=== PATIENT | male | born 1975 | race Caucasian/White ===

== ENCOUNTER 2018-11-25 14:15 | Inpatient (IN) | payer MEDICAID, OTHER ==
[~2018-11-25] VITALS: Ht 193 cm; Wt 63.0 kg
[2018-11-25] MEDS ORDERED: NAPR220C2 PO (14:50)
[2018-11-25] MEDS ORDERED: SODIUM CHLORIDE FLUSH 10ML SYR IVF ONE (15:00)
[2018-11-25 15:02] LABS: BASOPHILS # (AUTO) 0.03 x10^3/uL (0-0.1); BASOPHILS % (AUTO) 0 % (0-1); EOSINOPHILS # (AUTO) 0.13 x10^3/uL (0-0.4); EOSINOPHILS % (AUTO) 1 % (1-7); LYMPHOCYTES # (AUTO) 1.13 x10^3/uL (1-3.4); LYMPHOCYTES % (AUTO) 9 % (22-44); MD NO; MEAN CORPUSCULAR HEMOGLOBIN 28.7 pg (27.5-34.5); MEAN CORPUSCULAR HGB CONC 33.1 g/dL (33.2-36.2); MEAN CORPUSCULAR VOLUME 86.8 fL (81-97); MONOCYTES # (AUTO) 0.67 x10^3/uL (0.2-0.8); MONOCYTES % (AUTO) 6 % (2-9); NEUTROPHILS # (AUTO) 10.18 x10^3/uL (1.8-6.8); NEUTROPHILS % (AUTO) 84 % (42-75); PLATELET COUNT 146 x10^3/uL (130-400); RED BLOOD COUNT 4.55 x10^6/uL (4.38-5.82); RED CELL DISTRIBUTION WIDTH 15.1 % (9.4-14.8)
[2018-11-25 15:12] LABS: ALANINE AMINOTRANSFERASE 23 U/L (12-78); ALBUMIN 3.7 g/dL (3.4-5.0); ANION GAP 11 mmol/L (5-15); CALCIUM 10.3 mg/dL (8.5-10.1); CHLORIDE 99 mmol/L (98-107); CREATININE 1.24 mg/dL (0.7-1.3)
[2018-11-25 15:14] LABS: ALKALINE PHOSPHATASE 141 U/L (45-117); BILIRUBIN,TOTAL 1.1 mg/dL (0.2-1.0); TOTAL PROTEIN 7.5 g/dL (6.4-8.2)
--- NOTE | 2018-11-25 15:27 | NUR ---
CARE FOR RN BREAK PROVIDED. PT TO MRI VIA [id number]. PT AWARE URINE SPECIMAN NEEDED. URINAL AT BEDSIDE. PTS FATHER AT BEDSIDE.
--- NOTE | 2018-11-25 15:39 | NUR ---
REPORT TO NICHOLE COPE
--- NOTE | 2018-11-25 15:51 | NUR ---
PT REMAINS IN MRI.
[2018-11-25] MEDS ORDERED: GADOBUTROL 10 MMOL/10 ML PFS ONE (16:55)
[2018-11-25] MEDS ORDERED: SODIUM CHLORIDE 0.9% 1,000ML IVBOLUS ONE (18:00)
--- NOTE | 2018-11-25 18:00 | NUR ---
NOTIFIED DR. MG THAT PATIENT IS BACK FROM MRI AND IS TACHYCARDIC AROUND 120 BPM. PATIENT OK TO HAVE ICE CHIPS AT THIS TIME AND 1 L NS BOLUS ORDERED. AWAITING MRI REPORT.
[2018-11-25] MEDS ORDERED: DEXAMETHASONE 4 MG/ML, 1ML ONE (18:51)
[2018-11-25] MEDS ORDERED: DEXAMETHASONE 4 MG/ML, 1ML IVPush ONE (19:00)
[2018-11-25 19:03] LABS: INTERNATIONAL NORMALIZED RATIO 1.17 (0.93-1.1); PROTHROMBIN TIME 12.2 Seconds (9.6-11.5)
[2018-11-25] MEDS ORDERED: FAMOTIDINE 20 MG/2 ML ONE ×2 (19:13→19:14)
--- NOTE | 2018-11-25 19:19 | NUR ---
PT MEDICATED PER NOV. [facility] AT BEDSIDE
[2018-11-25] MEDS ORDERED: LORazepam 2 MG/ML, 1ML IVPush ONE (19:30)
[2018-11-25] MEDS ORDERED: ALUMINUM/MAG/SIMETHICONE 30 ML UDC PO PRN ×2 (19:30)
[2018-11-25] MEDS ORDERED: FAMOTIDINE 20 MG/2 ML IVPush ONE (19:30)
[2018-11-25] MEDS ORDERED: LORazepam 2 MG/ML, 1ML ONE (19:58)
[2018-11-25] MEDS ORDERED: HYDROmorphone 1 MG/ML, 1ML INJ IVPush PRN (21:00)
[2018-11-25] MEDS ORDERED: SODIUM CHLORIDE FLUSH 10ML SYR IVF PRN (21:00)
--- NOTE | 2018-11-25 21:01 | NUR ---
REPORT CALLED TO OR. AWAITING OR TRANSPORT AT THIS TIME .
--- NOTE | 2018-11-25 21:02 | NUR ---
BLOOD BANK CALLED AND STATES NEED TYPE AND SCREEN FOR PLATELETS. TYPE AND SCREEN ORDERED. BB CONFIRMED THEY HAVE RECEIVED THE ORDER AND WILL SEND SOMEONE NOW.
[2018-11-25] MEDS ORDERED: BACITRACIN 50,000 UNIT ONE (21:21)
[2018-11-25] MEDS ORDERED: BUPIVACAINE/PF-EPI 0.5% 1:200K ONE (21:21)
[2018-11-25] MEDS ORDERED: FENTANYL PF 250 MCG/5ML ONE ×2 (21:26→23:22)
[2018-11-25] MEDS ORDERED: MIDAZOLAM 1 MG/ML, 2ML ONE (21:26)
[2018-11-25] MEDS: NS + 20MEQ KCL 1,000 ML IV SCH (21:30)
[2018-11-25] MEDS ORDERED: ONDANSETRON 2MG/ML, 2ML IVPush PRN (21:30)
[2018-11-25] MEDS ORDERED: DIPHENHYDRAMINE 50 MG/ML, 1ML IVPush PRN (21:30)
[2018-11-25] MEDS ORDERED: PHARMACY MAY ADJ FOR RENAL FX MC PRN (21:30)
[2018-11-25] MEDS ORDERED: LABETALOL 5 MG/ML SYRINGE IVPush PRN (21:30)
[2018-11-25] MEDS ORDERED: THROMBIN 20,000 UNIT VIAL TP ONE ×2 (21:42→22:48)
[2018-11-25] MEDS ORDERED: PHENYLEPHRINE 10 MG/ML ONE (21:46)
[2018-11-25] MEDS ORDERED: ROCURONIUM 10MG/ML,5ML ONE (21:46)
[2018-11-25] MEDS ORDERED: ONDANSETRON 2MG/ML, 2ML ONE (21:46)
[2018-11-25] MEDS ORDERED: PROPOFOL 10 MG/ML, 20ML ONE (21:46)
[2018-11-25] MEDS ORDERED: SODIUM CHLORIDE 0.9% 1,000 ML IV SCH (21:50)
[2018-11-25] MEDS ORDERED: FENTANYL PF 100 MCG/2ML IV PRN (22:00)
[2018-11-25] MEDS ORDERED: MEPERIDINE/PF 25MG/0.5ML IVPush PRN (22:00)
[2018-11-25] MEDS ORDERED: ACETAMINOPHEN 325 MG TABLET PO PRN (22:00)
[2018-11-25] MEDS ORDERED: DIAZEPAM 5 MG/ML, 2ML IVPush PRN (22:00)
[2018-11-25] MEDS ORDERED: LORazepam 2 MG/ML, 1ML IVPush PRN (22:00)
[2018-11-25] MEDS ORDERED: OXYcodone 5 MG/5 ML ORAL.SOL UDC PO PRN (22:00)
[2018-11-25] MEDS ORDERED: ONDANSETRON 2MG/ML, 2ML IV PRN (22:00)
[2018-11-25] MEDS ORDERED: ONDANSETRON ODT 8 MG PO PRN (22:00)
[2018-11-25] MEDS ORDERED: DOCUSATE 100 MG CAPSULE PO PRN (22:00)
[2018-11-25] MEDS ORDERED: PROMETHAZINE 25 MG/ML, 1ML IV PRN (22:00)
[2018-11-25] MEDS ORDERED: HYDROmorphone 2 MG/ML, 1ML IVPush PRN (22:00)
[2018-11-25] MEDS ORDERED: BUPIVACAINE/PF-EPI 0.5% 1:200K INFIL ONE (22:10)
[2018-11-25] MEDS ORDERED: BACITRACIN 50,000 UNIT IRRIG ONE (22:10)
[2018-11-26 00:47] LABS: BASOPHILS # (AUTO) 0.01 x10^3/uL (0-0.1); BASOPHILS % (AUTO) 0 % (0-1); EOSINOPHILS # (AUTO) 0.14 x10^3/uL (0-0.4); EOSINOPHILS % (AUTO) 1 % (1-7); LYMPHOCYTES # (AUTO) 0.96 x10^3/uL (1-3.4); LYMPHOCYTES % (AUTO) 8 % (22-44); MD NO; MEAN CORPUSCULAR HEMOGLOBIN 29.2 pg (27.5-34.5); MEAN CORPUSCULAR HGB CONC 33.4 g/dL (33.2-36.2); MEAN CORPUSCULAR VOLUME 87.2 fL (81-97); MEAN PLATELET VOLUME 7.6 fL (7.4-10.4); MONOCYTES # (AUTO) 0.43 x10^3/uL (0.2-0.8); MONOCYTES % (AUTO) 4 % (2-9); NEUTROPHILS # (AUTO) 10.46 x10^3/uL (1.8-6.8); NEUTROPHILS % (AUTO) 87 % (42-75); PLATELET COUNT 147 x10^3/uL (130-400); RED BLOOD COUNT 3.35 x10^6/uL (4.38-5.82); RED CELL DISTRIBUTION WIDTH 14.9 % (9.4-14.8)
[2018-11-26 01:51] VITALS: BP 111/66
[2018-11-26] MEDS: DEXAMETHASONE 4 MG/ML, 1ML IVPush SCH ×4 (03:13→20:20)
[2018-11-26 04:28] LABS: BASOPHILS # (AUTO) 0.02 x10^3/uL (0-0.1); BASOPHILS % (AUTO) 0 % (0-1); EOSINOPHILS % (AUTO) 0 % (1-7); LYMPHOCYTES # (AUTO) 1.27 x10^3/uL (1-3.4); LYMPHOCYTES % (AUTO) 11 % (22-44); MD NO; MEAN CORPUSCULAR HEMOGLOBIN 28.9 pg (27.5-34.5); MEAN CORPUSCULAR HGB CONC 33.1 g/dL (33.2-36.2); MEAN CORPUSCULAR VOLUME 87.3 fL (81-97); MEAN PLATELET VOLUME 7.9 fL (7.4-10.4); MONOCYTES % (AUTO) 5 % (2-9); NEUTROPHILS # (AUTO) 10.08 x10^3/uL (1.8-6.8); NEUTROPHILS % (AUTO) 84 % (42-75); PLATELET COUNT 146 x10^3/uL (130-400); RED BLOOD COUNT 3.12 x10^6/uL (4.38-5.82); RED CELL DISTRIBUTION WIDTH 15.1 % (9.4-14.8)
[2018-11-26 04:38] LABS: ALBUMIN 2.9 g/dL (3.4-5.0); ANION GAP 7 mmol/L (5-15); CALCIUM 8.9 mg/dL (8.5-10.1); CHLORIDE 105 mmol/L (98-107); CREATININE 1.32 mg/dL (0.7-1.3)
[2018-11-26] MEDS: CEFAZOLIN PMX 1GM/50ML 50 ML IVPB SCH ×2 (06:26→13:36)
[2018-11-26] MEDS: NS + 20MEQ KCL 1,000 ML IV SCH (07:30)
[2018-11-26 07:58] VITALS: BP 114/62
[2018-11-26] MEDS: D5%-0.9% NACL 1,000 ML IV SCH ×2 (11:23→20:48)
[2018-11-26] MEDS ORDERED: OMNIPAQUE 350 MG/ML, 100ML BOTTLE ONE (12:28)
[2018-11-26] MEDS: morphine SULFATE 10 MG/ML, 1ML IVPush PRN (12:51)
[2018-11-26 13:47] VITALS: BP 126/67
[2018-11-26] MEDS: HYDROcodone/APAP 5/325 TABLET PO PRN ×2 (18:26→23:12)
[2018-11-26 19:03] VITALS: BP 120/60
[2018-11-26] MEDS: METHOCARBAMOL 750 MG TABLET PO PRN (20:19)
[2018-11-27 01:48] VITALS: BP 102/57
[2018-11-27] MEDS: DEXAMETHASONE 4 MG/ML, 1ML IVPush SCH ×3 (03:16→20:57)
[2018-11-27] MEDS: HYDROcodone/APAP 5/325 TABLET PO PRN ×3 (03:16→11:44)
[2018-11-27] MEDS: D5%-0.9% NACL 1,000 ML IV SCH ×2 (03:47→13:41)
[2018-11-27 04:35] LABS: CULTURE INDICATED? NO; MICROSCOPIC AUTO
[2018-11-27 04:46] LABS: MEAN CORPUSCULAR HEMOGLOBIN 28.4 pg (27.5-34.5); MEAN CORPUSCULAR HGB CONC 32.4 g/dL (33.2-36.2); MEAN CORPUSCULAR VOLUME 87.7 fL (81-97); MEAN PLATELET VOLUME 8.5 fL (7.4-10.4); PLATELET COUNT 139 x10^3/uL (130-400); RED BLOOD COUNT 2.54 x10^6/uL (4.38-5.82); RED CELL DISTRIBUTION WIDTH 15.2 % (9.4-14.8)
[2018-11-27 05:25] LABS: MD YES
[2018-11-27 05:27] LABS: ANISOCYTOSIS 1+; HYPOCHROMIA 1+; LYMPH#(MANUAL) 0.97 x10^3/uL (1-3.4); LYMPHS% (MANUAL) 7 % (22-44); MONOS#(MANUAL) 1.53 x10^3/uL (0.3-2.7); MONOS% (MANUAL) 11 % (2-9); SEGS% (MANUAL) 82 % (42-75)
[2018-11-27 05:28] LABS: <PLATELET ESTIMATE> DECREASED; <PLT MORPHOLOGY> NORMAL PLT MORPH; POLYCHROMASIA 1+
[2018-11-27 07:42] VITALS: BP 110/68
[2018-11-27] MEDS: ALLOPURINOL 300 MG TABLET PO SCH (08:09)
[2018-11-27] MEDS: morphine SULFATE 10 MG/ML, 1ML IVPush PRN (08:30)
[2018-11-27] MEDS ORDERED: GADOBUTROL 7.5 MMOL/7.5 ML PFS ONE (09:00)
[2018-11-27] MEDS ORDERED: ERGOCALCIFEROL 50,000 UNIT CAPSULE PO SCH (10:00)
[2018-11-27 12:49] VITALS: BP 112/61
[2018-11-27] MEDS: METHOCARBAMOL 750 MG TABLET PO PRN (15:42)
[2018-11-27] MEDS: OXYcodone/APAP 5/325MG TABLET PO PRN ×2 (17:00→20:57)
[2018-11-27 18:55] VITALS: BP 119/68
[2018-11-28] MEDS: OXYcodone/APAP 5/325MG TABLET PO PRN ×3 (00:59→21:58)
[2018-11-28 01:00] VITALS: BP 114/63
[2018-11-28 05:20] LABS: MEAN CORPUSCULAR HEMOGLOBIN 28.1 pg (27.5-34.5); MEAN CORPUSCULAR HGB CONC 32.1 g/dL (33.2-36.2); MEAN CORPUSCULAR VOLUME 87.5 fL (81-97); MEAN PLATELET VOLUME 8.6 fL (7.4-10.4); PLATELET COUNT 147 x10^3/uL (130-400); RED BLOOD COUNT 2.52 x10^6/uL (4.38-5.82); RED CELL DISTRIBUTION WIDTH 15.3 % (9.4-14.8)
[2018-11-28 05:26] LABS: ALBUMIN 2.6 g/dL (3.4-5.0); ANION GAP 6 mmol/L (5-15); CALCIUM 8.7 mg/dL (8.5-10.1); CHLORIDE 105 mmol/L (98-107)
[2018-11-28] MEDS ORDERED: METHOCARBAMOL 750 MG TABLET PO SCH (05:30)
[2018-11-28 05:40] LABS: ALANINE AMINOTRANSFERASE 19 U/L (12-78); ALKALINE PHOSPHATASE 115 U/L (45-117); BILIRUBIN,TOTAL 0.6 mg/dL (0.2-1.0); TOTAL PROTEIN 5.5 g/dL (6.4-8.2)
[2018-11-28 05:53] LABS: BASOPHILS # (AUTO) 0.02 x10^3/uL (0-0.1); BASOPHILS % (AUTO) 0 % (0-1); EOSINOPHILS # (AUTO) 0.01 x10^3/uL (0-0.4); EOSINOPHILS % (AUTO) 0 % (1-7); LYMPHOCYTES # (AUTO) 1.38 x10^3/uL (1-3.4); LYMPHOCYTES % (AUTO) 11 % (22-44); MONOCYTES # (AUTO) 1.01 x10^3/uL (0.2-0.8); MONOCYTES % (AUTO) 8 % (2-9); NEUTROPHILS # (AUTO) 10.46 x10^3/uL (1.8-6.8); NEUTROPHILS % (AUTO) 81 % (42-75)
[2018-11-28 05:56] LABS: MD SCAN
[2018-11-28 07:48] VITALS: BP 121/69
[2018-11-28] MEDS: ALLOPURINOL 300 MG TABLET PO SCH (09:04)
[2018-11-28] MEDS: DEXAMETHASONE 4 MG/ML, 1ML IVPush SCH ×3 (09:04→21:00)
[2018-11-28] MEDS: HYDROcodone/APAP 5/325 TABLET PO PRN (09:04)
[2018-11-28 12:34] VITALS: BP 115/65
[2018-11-28 15:14] LABS: MICROSCOPIC INDICATED
[2018-11-28] MEDS ORDERED: BENZOCAINE AEROSOL SPRAY 20%, 60ML TP PRN (15:30)
[2018-11-28] MEDS ORDERED: LIDOCAINE 2% VISCOUS, 100ML MM PRN (15:30)
[2018-11-28] MEDS ORDERED: SODIUM CHLORIDE 0.9% 1,000 ML IV ONE (15:30)
[2018-11-28] MEDS ORDERED: ENOXAPARIN 40 MG/0.4 ML SQ SCH (16:00)
[2018-11-28] MEDS ORDERED: BUPIVACAINE/PF 0.25% ONE (16:22)
[2018-11-28] MEDS ORDERED: NEOMY/POLYMYXIN B GU IRR. 1 ML ONE (16:22)
[2018-11-28] MEDS ORDERED: FENTANYL PF 100 MCG/2ML ONE ×5 (16:27→18:05)
[2018-11-28] MEDS ORDERED: FENTANYL PF 100 MCG/2ML IVPush ONE (16:30)
[2018-11-28] MEDS ORDERED: MIDAZOLAM 1 MG/ML, 2ML ONE (16:38)
[2018-11-28] MEDS ORDERED: ROCURONIUM 10 MG/ML,10ML ONE (16:44)
[2018-11-28] MEDS ORDERED: ONDANSETRON 2MG/ML, 2ML ONE (16:44)
[2018-11-28] MEDS ORDERED: PROPOFOL 50 ML ONE (16:52)
[2018-11-28] MEDS ORDERED: EPHEDRINE 50 MG/ML, 1ML IVPush PRN (17:30)
[2018-11-28] MEDS ORDERED: MIDAZOLAM 1 MG/ML, 2ML IV PRN (17:30)
[2018-11-28] MEDS ORDERED: ONDANSETRON 2MG/ML, 2ML IV PRN (17:30)
[2018-11-28] MEDS ORDERED: PROMETHAZINE 25 MG/ML, 1ML IV PRN (17:30)
[2018-11-28] MEDS ORDERED: PROMETHAZINE 25 MG SUPP PR PRN (17:30)
[2018-11-28] MEDS ORDERED: ONDANSETRON ODT 8 MG PO PRN (17:30)
[2018-11-28] MEDS ORDERED: LABETALOL 5MG/ML, 20ML IV PRN (17:30)
[2018-11-28] MEDS ORDERED: MORPHINE SULFATE 4 MG/ML, 1ML IVPush PRN (17:30)
[2018-11-28] MEDS ORDERED: PROMETHAZINE 12.5 MG SUPP PR PRN (17:30)
[2018-11-28] MEDS ORDERED: DIPHENHYDRAMINE 50 MG/ML, 1ML IVPush PRN (17:30)
[2018-11-28] MEDS ORDERED: OXYcodone 5 MG/5 ML ORAL.SOL UDC PO PRN (17:30)
[2018-11-28] MEDS ORDERED: MEPERIDINE/PF 25MG/0.5ML IVPush PRN (17:30)
[2018-11-28] MEDS ORDERED: EPHEDRINE 50 MG/ML, 1ML IM PRN (17:30)
[2018-11-28] MEDS ORDERED: FENTANYL PF 100 MCG/2ML IV PRN (17:30)
[2018-11-28] MEDS ORDERED: OXYcodone 5 MG/5 ML ORAL.SOL UDC ONE (19:12)
[2018-11-28 20:27] VITALS: BP 113/72
[2018-11-29 01:31] VITALS: BP 113/66
[2018-11-29] MEDS: OXYcodone/APAP 5/325MG TABLET PO PRN ×4 (02:39→22:46)
[2018-11-29 05:30] LABS: MEAN CORPUSCULAR HEMOGLOBIN 28.2 pg (27.5-34.5); MEAN CORPUSCULAR HGB CONC 32.4 g/dL (33.2-36.2); MEAN PLATELET VOLUME 8.3 fL (7.4-10.4); PLATELET COUNT 153 x10^3/uL (130-400); RED BLOOD COUNT 2.41 x10^6/uL (4.38-5.82); RED CELL DISTRIBUTION WIDTH 15.1 % (9.4-14.8)
[2018-11-29 05:37] LABS: RED BLOOD COUNT 2.41 x10^6/uL (4.38-5.82)
[2018-11-29 05:38] LABS: ABSOLUTE RETICS # 0.123 x10^6/uL (0.5-1.5); RETICULOCYTE COUNT % 5.09 % (0.5-1.5)
[2018-11-29 05:40] LABS: ALANINE AMINOTRANSFERASE 16 U/L (12-78); ALBUMIN 2.2 g/dL (3.4-5.0); ANION GAP 7 mmol/L (5-15); CALCIUM 8.3 mg/dL (8.5-10.1); CHLORIDE 104 mmol/L (98-107); CREATININE 0.66 mg/dL (0.7-1.3)
[2018-11-29 05:42] LABS: ALKALINE PHOSPHATASE 112 U/L (45-117); BILIRUBIN,TOTAL 0.6 mg/dL (0.2-1.0); TOTAL PROTEIN 5.2 g/dL (6.4-8.2)
[2018-11-29] MEDS: morphine SULFATE 10 MG/ML, 1ML IVPush PRN ×2 (06:23→13:30)
[2018-11-29 06:46] LABS: BASOPHILS # (AUTO) 0.02 x10^3/uL (0-0.1); BASOPHILS % (AUTO) 0 % (0-1); EOSINOPHILS # (AUTO) 0.01 x10^3/uL (0-0.4); EOSINOPHILS % (AUTO) 0 % (1-7); LYMPHOCYTES # (AUTO) 1.52 x10^3/uL (1-3.4); LYMPHOCYTES % (AUTO) 14 % (22-44); MD SCAN; MONOCYTES # (AUTO) 0.93 x10^3/uL (0.2-0.8); MONOCYTES % (AUTO) 8 % (2-9); NEUTROPHILS # (AUTO) 8.75 x10^3/uL (1.8-6.8); NEUTROPHILS % (AUTO) 78 % (42-75)
[2018-11-29 08:15] VITALS: BP 114/65
[2018-11-29] MEDS: HYDROmorphone 2 MG/ML, 1ML IVPush PRN (08:50)
[2018-11-29] MEDS: DEXAMETHASONE 4 MG/ML, 1ML IVPush SCH ×2 (08:50→20:38)
[2018-11-29] MEDS ORDERED: PROPOFOL 10 MG/ML, 20ML ONE (11:18)
[2018-11-29 13:21] VITALS: BP 113/74
[2018-11-29 13:42] VITALS: BP 108/63
[2018-11-29] MEDS: POLYETHYLENE GLYCOL 17 GM PACKET PO SCH (14:38)
[2018-11-29] MEDS: ALLOPURINOL 300 MG TABLET PO SCH (14:39)
[2018-11-29 16:13] VITALS: BP 120/65
[2018-11-29 19:18] VITALS: BP 115/68
[2018-11-29] MEDS: HEPARIN 5,000 UNITS/ML, 1ML SQ SCH (20:38)
[2018-11-29] MEDS: METHOCARBAMOL 750 MG TABLET PO PRN (21:03)
[2018-11-29] MEDS: TEMAZEPAM 15 MG CAPSULE PO PRN (21:03)
[2018-11-30 00:45] VITALS: BP 118/69
[2018-11-30] MEDS: HYDROcodone/APAP 5/325 TABLET PO PRN (01:58)
[2018-11-30] MEDS: MAGNESIUM HYDROXIDE 8%, 30ML UDC PO PRN (02:20)
[2018-11-30 04:43] LABS: MEAN CORPUSCULAR HEMOGLOBIN 29.2 pg (27.5-34.5); MEAN CORPUSCULAR HGB CONC 33.3 g/dL (33.2-36.2); MEAN CORPUSCULAR VOLUME 87.9 fL (81-97); MEAN PLATELET VOLUME 7.8 fL (7.4-10.4); PLATELET COUNT 166 x10^3/uL (130-400); RED BLOOD COUNT 3.08 x10^6/uL (4.38-5.82); RED CELL DISTRIBUTION WIDTH 15.4 % (9.4-14.8)
[2018-11-30] MEDS: HEPARIN 5,000 UNITS/ML, 1ML SQ SCH ×3 (05:22→20:15)
[2018-11-30] MEDS: METHOCARBAMOL 750 MG TABLET PO PRN (05:22)
[2018-11-30 05:40] LABS: MD YES
[2018-11-30 05:41] LABS: BAND#(MANUAL) 0.86 x10^3/uL; BANDS%(MANUAL) 6 % (0-7); LYMPH#(MANUAL) 1.15 x10^3/uL (1-3.4); LYMPHS% (MANUAL) 8 % (22-44); MONOS#(MANUAL) 1.44 x10^3/uL (0.3-2.7); MONOS% (MANUAL) 10 % (2-9); NRBC % (MANUAL) 3 % (0-1); SEG#(MANUAL) 10.94 x10^3/uL (1.8-6.8); SEGS% (MANUAL) 76 % (42-75)
[2018-11-30 05:42] LABS: ANISOCYTOSIS 1+; HYPOCHROMIA 1+; POLYCHROMASIA 1+
[2018-11-30 05:43] LABS: <PLATELET ESTIMATE> ADEQUATE; <PLT MORPHOLOGY> NORMAL PLT MORPH
[2018-11-30] MEDS: HYDROmorphone 2 MG/ML, 1ML IVPush PRN ×3 (05:51→20:16)
[2018-11-30 07:01] LABS: ALANINE AMINOTRANSFERASE 20 U/L (12-78); ALBUMIN 2.3 g/dL (3.4-5.0); ANION GAP 8 mmol/L (5-15); CALCIUM 8.7 mg/dL (8.5-10.1); CHLORIDE 102 mmol/L (98-107); CREATININE 0.76 mg/dL (0.7-1.3)
[2018-11-30 07:03] LABS: ALKALINE PHOSPHATASE 130 U/L (45-117); BILIRUBIN,TOTAL 0.9 mg/dL (0.2-1.0)
[2018-11-30 08:00] VITALS: BP 124/70
[2018-11-30] MEDS: DEXAMETHASONE 4 MG/ML, 1ML IVPush SCH ×3 (09:00→20:15)
[2018-11-30] MEDS: OXYcodone/APAP 5/325MG TABLET PO PRN ×3 (09:40→19:06)
[2018-11-30] MEDS: ALLOPURINOL 300 MG TABLET PO SCH (09:40)
[2018-11-30] MEDS: POLYETHYLENE GLYCOL 17 GM PACKET PO SCH (09:40)
[2018-11-30 14:00] VITALS: BP 109/67
[2018-11-30 18:37] VITALS: BP 120/71
[2018-12-01 01:32] VITALS: BP 118/74
[2018-12-01] MEDS: HYDROmorphone 2 MG/ML, 1ML IVPush PRN ×6 (01:38→20:47)
[2018-12-01] MEDS: OXYcodone/APAP 5/325MG TABLET PO PRN ×4 (04:34→23:37)
[2018-12-01 04:51] LABS: MEAN CORPUSCULAR HEMOGLOBIN 28.7 pg (27.5-34.5); MEAN CORPUSCULAR HGB CONC 32.6 g/dL (33.2-36.2); MEAN CORPUSCULAR VOLUME 87.8 fL (81-97); MEAN PLATELET VOLUME 7.6 fL (7.4-10.4); PLATELET COUNT 177 x10^3/uL (130-400); RED BLOOD COUNT 3.34 x10^6/uL (4.38-5.82); RED CELL DISTRIBUTION WIDTH 15.6 % (9.4-14.8)
[2018-12-01] MEDS: HEPARIN 5,000 UNITS/ML, 1ML SQ SCH ×3 (05:00→23:37)
[2018-12-01 05:56] LABS: MD YES
[2018-12-01 05:57] LABS: ANISOCYTOSIS 1+; BAND#(MANUAL) 0.38 x10^3/uL; BANDS%(MANUAL) 2 % (0-7); LYMPH#(MANUAL) 2.82 x10^3/uL (1-3.4); LYMPHS% (MANUAL) 15 % (22-44); METAMYELOCYTES# (MANUAL) 0.56 x10^3/uL (0-0); METAMYELOCYTES% (MANUAL) 3 % (0-1); MONOS% (MANUAL) 8 % (2-9); NRBC % (MANUAL) 2 % (0-1); SEG#(MANUAL) 13.54 x10^3/uL (1.8-6.8); SEGS% (MANUAL) 72 % (42-75)
[2018-12-01 05:58] LABS: <PLATELET ESTIMATE> ADEQUATE; <PLT MORPHOLOGY> NORMAL PLT MORPH; HYPOCHROMIA 1+; POLYCHROMASIA 1+
[2018-12-01 06:50] VITALS: BP 105/69
[2018-12-01] MEDS ORDERED: BISACODYL 10 MG SUPP PR PRN (08:30)
[2018-12-01] MEDS: OMEPRAZOLE 20 MG CAPSULE.DR PO SCH (08:44)
[2018-12-01] MEDS: DEXAMETHASONE 4 MG/ML, 1ML IVPush SCH ×2 (08:44→20:47)
[2018-12-01] MEDS: ALLOPURINOL 300 MG TABLET PO SCH (08:44)
[2018-12-01] MEDS: POLYETHYLENE GLYCOL 17 GM PACKET PO SCH (08:44)
[2018-12-01] MEDS ORDERED: DEXAMETHASONE 4 MG/ML, 1ML IVPush SCH (09:00)
[2018-12-01 13:39] VITALS: BP 130/85
[2018-12-01 14:07] LABS: OCCULT BLOOD NEGATIVE (NEGATIVE)
[2018-12-01 19:34] VITALS: BP 118/76
[2018-12-01] MEDS: TEMAZEPAM 15 MG CAPSULE PO PRN (20:47)
[2018-12-02 00:54] VITALS: BP 124/67
[2018-12-02] MEDS: HYDROmorphone 2 MG/ML, 1ML IVPush PRN ×6 (02:17→21:04)
[2018-12-02 05:04] LABS: MEAN CORPUSCULAR HEMOGLOBIN 28.7 pg (27.5-34.5); MEAN CORPUSCULAR HGB CONC 32.4 g/dL (33.2-36.2); MEAN CORPUSCULAR VOLUME 88.4 fL (81-97); MEAN PLATELET VOLUME 8.1 fL (7.4-10.4); PLATELET COUNT 162 x10^3/uL (130-400); RED BLOOD COUNT 3.35 x10^6/uL (4.38-5.82); RED CELL DISTRIBUTION WIDTH 15.5 % (9.4-14.8)
[2018-12-02 05:10] LABS: ALBUMIN 2.6 g/dL (3.4-5.0); ANION GAP 9 mmol/L (5-15); CALCIUM 8.9 mg/dL (8.5-10.1); CHLORIDE 100 mmol/L (98-107)
[2018-12-02 05:27] LABS: ALANINE AMINOTRANSFERASE 19 U/L (12-78); ALKALINE PHOSPHATASE 168 U/L (45-117); BILIRUBIN,TOTAL 1.6 mg/dL (0.2-1.0); CREATININE 0.73 mg/dL (0.7-1.3); TOTAL PROTEIN 6.2 g/dL (6.4-8.2)
[2018-12-02 05:52] LABS: MD YES
[2018-12-02 05:54] LABS: <PLATELET ESTIMATE> ADEQUATE; <PLT MORPHOLOGY> NORMAL PLT MORPH; ANISOCYTOSIS 1+; BAND#(MANUAL) 1.74 x10^3/uL; BANDS%(MANUAL) 8 % (0-7); LYMPHS% (MANUAL) 11 % (22-44); METAMYELOCYTES# (MANUAL) 1.31 x10^3/uL (0-0); METAMYELOCYTES% (MANUAL) 6 % (0-1); MONOS#(MANUAL) 1.09 x10^3/uL (0.3-2.7); MONOS% (MANUAL) 5 % (2-9); MYELOCYTES# (MANUAL) 0.87 x10^3/uL (0-0); MYELOCYTES% (MANUAL) 4 % (0-0); NRBC % (MANUAL) 1 % (0-1); POLYCHROMASIA 1+; SEG#(MANUAL) 14.39 x10^3/uL (1.8-6.8); SEGS% (MANUAL) 66 % (42-75)
[2018-12-02] MEDS: OMEPRAZOLE 20 MG CAPSULE.DR PO SCH (06:10)
[2018-12-02 07:31] VITALS: BP 113/69
[2018-12-02] MEDS: OXYcodone/APAP 5/325MG TABLET PO PRN ×3 (08:48→22:30)
[2018-12-02] MEDS: POLYETHYLENE GLYCOL 17 GM PACKET PO SCH (08:48)
[2018-12-02] MEDS: ALLOPURINOL 300 MG TABLET PO SCH (08:48)
[2018-12-02] MEDS: DEXAMETHASONE 4 MG/ML, 1ML IVPush SCH ×2 (08:49→21:04)
[2018-12-02] MEDS: HEPARIN 5,000 UNITS/ML, 1ML SQ SCH ×2 (08:49→16:53)
[2018-12-02 13:19] VITALS: BP 123/80
[2018-12-02 19:59] VITALS: BP 129/74
[2018-12-03] MEDS: HEPARIN 5,000 UNITS/ML, 1ML SQ SCH ×3 (01:55→15:21)
[2018-12-03 03:08] VITALS: BP 117/67
[2018-12-03] MEDS: HYDROmorphone 2 MG/ML, 1ML IVPush PRN ×5 (03:10→22:27)
[2018-12-03 05:51] LABS: MEAN CORPUSCULAR HEMOGLOBIN 29.4 pg (27.5-34.5); MEAN CORPUSCULAR HGB CONC 33.5 g/dL (33.2-36.2); MEAN CORPUSCULAR VOLUME 87.7 fL (81-97); MEAN PLATELET VOLUME 8.1 fL (7.4-10.4); PLATELET COUNT 159 x10^3/uL (130-400); RED BLOOD COUNT 3.12 x10^6/uL (4.38-5.82); RED CELL DISTRIBUTION WIDTH 15.8 % (9.4-14.8)
[2018-12-03 06:03] LABS: CHLORIDE 100 mmol/L (98-107)
[2018-12-03 06:13] LABS: ALANINE AMINOTRANSFERASE 21 U/L (12-78); ALBUMIN 2.5 g/dL (3.4-5.0); ALKALINE PHOSPHATASE 198 U/L (45-117); ANION GAP 9 mmol/L (5-15); BILIRUBIN,TOTAL 0.8 mg/dL (0.2-1.0); CALCIUM 8.6 mg/dL (8.5-10.1); CREATININE 0.69 mg/dL (0.7-1.3); TOTAL PROTEIN 6.1 g/dL (6.4-8.2)
[2018-12-03 06:25] LABS: MD YES
[2018-12-03 06:29] LABS: ANISOCYTOSIS 1+; BAND#(MANUAL) 1.74 x10^3/uL; BANDS%(MANUAL) 7 % (0-7); LYMPH#(MANUAL) 2.73 x10^3/uL (1-3.4); LYMPHS% (MANUAL) 11 % (22-44); METAMYELOCYTES# (MANUAL) 0.99 x10^3/uL (0-0); METAMYELOCYTES% (MANUAL) 4 % (0-1); MONOS#(MANUAL) 1.49 x10^3/uL (0.3-2.7); MONOS% (MANUAL) 6 % (2-9); MYELOCYTES% (MANUAL) 2 % (0-0); NRBC % (MANUAL) 2 % (0-1); SEG#(MANUAL) 17.36 x10^3/uL (1.8-6.8); SEGS% (MANUAL) 70 % (42-75)
[2018-12-03 06:30] LABS: <PLATELET ESTIMATE> ADEQUATE; POLYCHROMASIA 1+
[2018-12-03 06:31] LABS: <PLT MORPHOLOGY> NORMAL PLT MORPH
[2018-12-03] MEDS: OXYcodone/APAP 5/325MG TABLET PO PRN ×2 (06:33→20:10)
[2018-12-03] MEDS: OMEPRAZOLE 20 MG CAPSULE.DR PO SCH (06:33)
[2018-12-03 06:55] VITALS: BP 122/73
[2018-12-03] MEDS: DEXAMETHASONE 4 MG/ML, 1ML IVPush SCH ×2 (08:25→20:12)
[2018-12-03] MEDS: ALLOPURINOL 300 MG TABLET PO SCH (08:25)
[2018-12-03] MEDS: POLYETHYLENE GLYCOL 17 GM PACKET PO SCH (08:25)
[2018-12-03] MEDS ORDERED: HYDROmorphone 2 MG/ML, 1ML IVPush PRN (10:00)
[2018-12-03 14:37] VITALS: BP 120/71
[2018-12-03 19:48] VITALS: BP 120/76
[2018-12-04] MEDS: HEPARIN 5,000 UNITS/ML, 1ML SQ SCH ×3 (00:46→15:45)
[2018-12-04 01:00] VITALS: BP 113/69
[2018-12-04] MEDS: HYDROmorphone 2 MG/ML, 1ML IVPush PRN ×4 (01:41→11:07)
[2018-12-04 04:57] LABS: ALBUMIN 2.5 g/dL (3.4-5.0); ANION GAP 5 mmol/L (5-15); CALCIUM 8.6 mg/dL (8.5-10.1); CHLORIDE 101 mmol/L (98-107)
[2018-12-04 04:58] LABS: MEAN CORPUSCULAR HEMOGLOBIN 28.7 pg (27.5-34.5); MEAN CORPUSCULAR HGB CONC 32.5 g/dL (33.2-36.2); MEAN CORPUSCULAR VOLUME 88.3 fL (81-97); MEAN PLATELET VOLUME 7.9 fL (7.4-10.4); PLATELET COUNT 146 x10^3/uL (130-400); RED BLOOD COUNT 2.98 x10^6/uL (4.38-5.82); RED CELL DISTRIBUTION WIDTH 15.6 % (9.4-14.8)
[2018-12-04 05:01] LABS: ALANINE AMINOTRANSFERASE 29 U/L (12-78); ALKALINE PHOSPHATASE 193 U/L (45-117); BILIRUBIN,TOTAL 0.7 mg/dL (0.2-1.0); TOTAL PROTEIN 5.8 g/dL (6.4-8.2)
[2018-12-04 05:45] LABS: MD YES
[2018-12-04] MEDS: OMEPRAZOLE 20 MG CAPSULE.DR PO SCH (05:46)
[2018-12-04 05:47] LABS: ANISOCYTOSIS 1+; BANDS%(MANUAL) 8 % (0-7); LYMPH#(MANUAL) 2.75 x10^3/uL (1-3.4); LYMPHS% (MANUAL) 11 % (22-44); METAMYELOCYTES% (MANUAL) 2 % (0-1); MONOS% (MANUAL) 6 % (2-9); MYELOCYTES% (MANUAL) 2 % (0-0); POLYCHROMASIA 1+; SEG#(MANUAL) 17.75 x10^3/uL (1.8-6.8); SEGS% (MANUAL) 71 % (42-75)
[2018-12-04 05:48] LABS: <PLATELET ESTIMATE> ADEQUATE; <PLT MORPHOLOGY> NORMAL PLT MORPH
[2018-12-04 07:20] VITALS: BP 119/67
[2018-12-04] MEDS: OXYcodone/APAP 5/325MG TABLET PO PRN (07:42)
[2018-12-04] MEDS ORDERED: DIAZEPAM 5 MG/ML, 10ML VIAL IV PRN (08:00)
[2018-12-04] MEDS ORDERED: DIAZEPAM 5 MG/ML, 2ML IV PRN ×2 (08:30→15:00)
[2018-12-04] MEDS: POLYETHYLENE GLYCOL 17 GM PACKET PO SCH (08:41)
[2018-12-04] MEDS: ERGOCALCIFEROL 50,000 UNIT CAPSULE PO SCH (08:53)
[2018-12-04] MEDS: DEXAMETHASONE 4 MG/ML, 1ML IVPush SCH ×2 (08:53→21:23)
[2018-12-04] MEDS: ALLOPURINOL 300 MG TABLET PO SCH (08:53)
[2018-12-04 14:00] VITALS: BP 116/73
[2018-12-04] MEDS: DIAZEPAM 5 MG/ML, 2ML IV SCH ×2 (15:34→21:49)
[2018-12-04] MEDS: HYDROmorphone PCA 30 MG/30 ML IV PRN (17:09)
[2018-12-04 19:31] VITALS: BP 117/63
[2018-12-04] MEDS: DOCUSATE 100 MG CAPSULE PO SCH (21:00)
[2018-12-04 22:51] LABS: MICROSCOPIC NOT IND
[2018-12-04 22:53] LABS: CULTURE INDICATED? NO
[2018-12-05] MEDS: HEPARIN 5,000 UNITS/ML, 1ML SQ SCH ×3 (01:33→18:17)
[2018-12-05 02:09] VITALS: BP 119/66
[2018-12-05] MEDS: OMEPRAZOLE 20 MG CAPSULE.DR PO SCH (05:10)
[2018-12-05] MEDS: METHOCARBAMOL 750 MG TABLET PO PRN (05:10)
[2018-12-05 05:33] LABS: MEAN CORPUSCULAR HEMOGLOBIN 29.5 pg (27.5-34.5); MEAN CORPUSCULAR HGB CONC 33.5 g/dL (33.2-36.2); MEAN PLATELET VOLUME 7.8 fL (7.4-10.4); PLATELET COUNT 144 x10^3/uL (130-400); RED CELL DISTRIBUTION WIDTH 15.8 % (9.4-14.8)
[2018-12-05 06:30] LABS: MD YES
[2018-12-05 06:32] LABS: ANISOCYTOSIS 1+; BAND#(MANUAL) 2.09 x10^3/uL; BANDS%(MANUAL) 8 % (0-7); LYMPH#(MANUAL) 3.65 x10^3/uL (1-3.4); LYMPHS% (MANUAL) 14 % (22-44); METAMYELOCYTES# (MANUAL) 1.04 x10^3/uL (0-0); METAMYELOCYTES% (MANUAL) 4 % (0-1); MONOS#(MANUAL) 0.78 x10^3/uL (0.3-2.7); MONOS% (MANUAL) 3 % (2-9); MYELOCYTES# (MANUAL) 0.52 x10^3/uL (0-0); MYELOCYTES% (MANUAL) 2 % (0-0); NRBC % (MANUAL) 2 % (0-1); POLYCHROMASIA 1+; SEG#(MANUAL) 18.01 x10^3/uL (1.8-6.8); SEGS% (MANUAL) 69 % (42-75)
[2018-12-05 06:33] LABS: <PLATELET ESTIMATE> ADEQUATE; <PLT MORPHOLOGY> NORMAL PLT MORPH
[2018-12-05 07:14] VITALS: BP 105/62
[2018-12-05] MEDS ORDERED: SODIUM CHLORIDE 0.9% 1,000 ML IV SCH (07:30)
[2018-12-05 08:52] LABS: ALBUMIN 2.5 g/dL (3.4-5.0); ANION GAP 7 mmol/L (5-15); CALCIUM 8.6 mg/dL (8.5-10.1); CHLORIDE 102 mmol/L (98-107); CREATININE 0.77 mg/dL (0.7-1.3)
[2018-12-05] MEDS: DOCUSATE 100 MG CAPSULE PO SCH ×2 (09:00→21:43)
[2018-12-05] MEDS: POLYETHYLENE GLYCOL 17 GM PACKET PO SCH (09:00)
[2018-12-05] MEDS: ALLOPURINOL 300 MG TABLET PO SCH (09:26)
[2018-12-05] MEDS: DIAZEPAM 5 MG/ML, 2ML IV SCH ×3 (11:24→21:44)
[2018-12-05] MEDS: POTASSIUM CHLORIDE IV SCH ×2 (11:58→21:44)
[2018-12-05] MEDS: SODIUM CHLORIDE 0.9% IV SCH ×4 (11:58→21:44)
[2018-12-05] MEDS: MAGNESIUM SULFATE IV SCH ×2 (11:58→21:44)
[2018-12-05] MEDS ORDERED: LORazepam 2 MG/ML, 1ML IVPush PRN (12:00)
[2018-12-05] MEDS ORDERED: PROCHLORPERAZINE 10MG TABLET PO PRN (12:00)
[2018-12-05] MEDS ORDERED: PROCHLORPERAZINE 5 MG/ML, 2ML IV PRN (12:00)
[2018-12-05] MEDS ORDERED: FOSAPREPITANT 150 MG in SODIUM CHLORIDE 0.9% 145 ML IV ONE (12:00)
[2018-12-05] MEDS: ONDANSETRON 16 MG, DEXAMETHASONE 10 MG in SODIUM CHLORIDE 0.9% 50 ML IVPB SCH (12:31)
[2018-12-05 12:55] VITALS: BP 117/66
[2018-12-05] MEDS: CISPLATIN 39 MG in SODIUM CHLORIDE 0.9% 250 ML IV SCH (14:03)
[2018-12-05] MEDS ORDERED: MESNA IVPB ONE (15:30)
[2018-12-05] MEDS ORDERED: SODIUM CHLORIDE 0.9% IVPB ONE (15:30)
[2018-12-05] MEDS: ETOPOSIDE IV SCH (16:20)
[2018-12-05] MEDS: SODIUM CHLORIDE 0.9% IVPB SCH (18:41)
[2018-12-05] MEDS: MESNA IVPB SCH (18:41)
[2018-12-05] MEDS: IFOSFAMIDE IV SCH (18:54)
[2018-12-05 19:25] VITALS: BP 102/60
[2018-12-06] MEDS: HEPARIN 5,000 UNITS/ML, 1ML SQ SCH ×3 (00:12→17:56)
[2018-12-06 00:37] VITALS: BP 106/64
[2018-12-06 05:21] LABS: MEAN CORPUSCULAR HEMOGLOBIN 29.2 pg (27.5-34.5); MEAN CORPUSCULAR HGB CONC 32.7 g/dL (33.2-36.2); MEAN CORPUSCULAR VOLUME 89.3 fL (81-97); MEAN PLATELET VOLUME 8.2 fL (7.4-10.4); PLATELET COUNT 140 x10^3/uL (130-400)
[2018-12-06 05:32] LABS: CHLORIDE 104 mmol/L (98-107)
[2018-12-06 05:45] LABS: ALANINE AMINOTRANSFERASE 39 U/L (12-78); ALBUMIN 2.4 g/dL (3.4-5.0); ALKALINE PHOSPHATASE 218 U/L (45-117); ANION GAP 9 mmol/L (5-15); BILIRUBIN,TOTAL 0.8 mg/dL (0.2-1.0); CALCIUM 8.2 mg/dL (8.5-10.1); CREATININE 0.71 mg/dL (0.7-1.3); TOTAL PROTEIN 5.6 g/dL (6.4-8.2)
[2018-12-06 06:14] LABS: MD YES
[2018-12-06 06:17] LABS: <PLATELET ESTIMATE> ADEQUATE; <PLT MORPHOLOGY> NORMAL PLT MORPH; ANISOCYTOSIS 1+; BAND#(MANUAL) 1.61 x10^3/uL; BANDS%(MANUAL) 7 % (0-7); LYMPHS% (MANUAL) 10 % (22-44); METAMYELOCYTES# (MANUAL) 0.46 x10^3/uL (0-0); METAMYELOCYTES% (MANUAL) 2 % (0-1); MONOS#(MANUAL) 1.15 x10^3/uL (0.3-2.7); MONOS% (MANUAL) 5 % (2-9); POLYCHROMASIA 1+; SEG#(MANUAL) 17.48 x10^3/uL (1.8-6.8); SEGS% (MANUAL) 76 % (42-75)
[2018-12-06] MEDS: OMEPRAZOLE 20 MG CAPSULE.DR PO SCH (06:17)
[2018-12-06 08:00] VITALS: BP 104/65
[2018-12-06] MEDS: POTASSIUM CHLORIDE IV SCH ×2 (08:51→20:20)
[2018-12-06] MEDS: MAGNESIUM SULFATE IV SCH ×2 (08:51→20:20)
[2018-12-06] MEDS: DIAZEPAM 5 MG/ML, 2ML IV SCH ×3 (08:51→21:00)
[2018-12-06] MEDS: SODIUM CHLORIDE 0.9% IV SCH ×4 (08:51→21:29)
[2018-12-06] MEDS: ALLOPURINOL 300 MG TABLET PO SCH (08:51)
[2018-12-06] MEDS: DOCUSATE 100 MG CAPSULE PO SCH ×2 (08:55→21:29)
[2018-12-06] MEDS: POLYETHYLENE GLYCOL 17 GM PACKET PO SCH (09:00)
[2018-12-06] MEDS: ONDANSETRON 16 MG, DEXAMETHASONE 10 MG in SODIUM CHLORIDE 0.9% 50 ML IVPB SCH (12:36)
[2018-12-06] MEDS: LORazepam 1MG TABLET PO PRN (12:40)
[2018-12-06] MEDS: CISPLATIN 39 MG in SODIUM CHLORIDE 0.9% 250 ML IV SCH (14:27)
[2018-12-06 15:13] LABS: MICROSCOPIC INDICATED
[2018-12-06] MEDS: ETOPOSIDE IV SCH (17:29)
[2018-12-06 17:41] VITALS: BP 112/64
[2018-12-06] MEDS: MESNA IVPB SCH (20:40)
[2018-12-06] MEDS: SODIUM CHLORIDE 0.9% IVPB SCH (20:40)
[2018-12-06] MEDS: IFOSFAMIDE IV SCH (21:29)
[2018-12-06 21:37] VITALS: BP 106/63
[2018-12-07] MEDS: HEPARIN 5,000 UNITS/ML, 1ML SQ SCH ×3 (00:03→16:19)
[2018-12-07 02:58] VITALS: BP 121/63
[2018-12-07] MEDS: POTASSIUM CHLORIDE IV SCH ×2 (05:04→15:32)
[2018-12-07] MEDS: SODIUM CHLORIDE 0.9% IV SCH ×4 (05:04→20:35)
[2018-12-07] MEDS: MAGNESIUM SULFATE IV SCH ×2 (05:04→15:32)
[2018-12-07] MEDS: OMEPRAZOLE 20 MG CAPSULE.DR PO SCH (05:07)
[2018-12-07 05:35] LABS: MEAN CORPUSCULAR HEMOGLOBIN 29.5 pg (27.5-34.5); MEAN CORPUSCULAR HGB CONC 33.3 g/dL (33.2-36.2); MEAN CORPUSCULAR VOLUME 88.6 fL (81-97); MEAN PLATELET VOLUME 7.9 fL (7.4-10.4); PLATELET COUNT 127 x10^3/uL (130-400); RED BLOOD COUNT 2.72 x10^6/uL (4.38-5.82); RED CELL DISTRIBUTION WIDTH 16.4 % (9.4-14.8)
[2018-12-07 05:45] LABS: ALANINE AMINOTRANSFERASE 36 U/L (12-78); ALBUMIN 2.3 g/dL (3.4-5.0); ANION GAP 8 mmol/L (5-15); CALCIUM 8.1 mg/dL (8.5-10.1); CHLORIDE 104 mmol/L (98-107); CREATININE 0.67 mg/dL (0.7-1.3)
[2018-12-07 05:47] LABS: ALKALINE PHOSPHATASE 212 U/L (45-117); BILIRUBIN,TOTAL 0.7 mg/dL (0.2-1.0); TOTAL PROTEIN 5.2 g/dL (6.4-8.2)
[2018-12-07 05:54] LABS: BASOPHILS % (AUTO) 1 % (0-1); EOSINOPHILS # (AUTO) 0.03 x10^3/uL (0-0.4); EOSINOPHILS % (AUTO) 0 % (1-7); LYMPHOCYTES # (AUTO) 2.32 x10^3/uL (1-3.4); LYMPHOCYTES % (AUTO) 14 % (22-44); MD SCAN; MONOCYTES # (AUTO) 0.17 x10^3/uL (0.2-0.8); MONOCYTES % (AUTO) 1 % (2-9); NEUTROPHILS # (AUTO) 13.96 x10^3/uL (1.8-6.8); NEUTROPHILS % (AUTO) 84 % (42-75)
[2018-12-07 07:43] VITALS: BP 100/58
[2018-12-07] MEDS ORDERED: SODIUM CHLORIDE 0.9%, 500ML IVBOLUS ONE (08:30)
[2018-12-07] MEDS: ALLOPURINOL 300 MG TABLET PO SCH (08:37)
[2018-12-07] MEDS: POLYETHYLENE GLYCOL 17 GM PACKET PO SCH (08:37)
[2018-12-07] MEDS: DOCUSATE 100 MG CAPSULE PO SCH ×2 (08:37→21:27)
[2018-12-07] MEDS: DIAZEPAM 5 MG/ML, 2ML IV SCH ×3 (08:57→22:15)
[2018-12-07] MEDS: ONDANSETRON 16 MG, DEXAMETHASONE 10 MG in SODIUM CHLORIDE 0.9% 50 ML IVPB SCH (11:55)
[2018-12-07] MEDS: CISPLATIN 39 MG in SODIUM CHLORIDE 0.9% 250 ML IV SCH (13:16)
[2018-12-07 13:31] VITALS: BP 101/58
[2018-12-07 14:28] LABS: MICROSCOPIC AUTO
[2018-12-07] MEDS: ETOPOSIDE IV SCH (15:40)
[2018-12-07 19:10] VITALS: BP 111/61
[2018-12-07] MEDS: IFOSFAMIDE IV SCH (20:35)
[2018-12-07] MEDS: MESNA IVPB SCH (21:26)
[2018-12-07] MEDS: SODIUM CHLORIDE 0.9% IVPB SCH (21:26)
[2018-12-08] MEDS: HEPARIN 5,000 UNITS/ML, 1ML SQ SCH ×4 (00:45→23:28)
[2018-12-08] MEDS: POTASSIUM CHLORIDE IV SCH ×3 (01:39→23:20)
[2018-12-08] MEDS: SODIUM CHLORIDE 0.9% IV SCH ×5 (01:39→23:20)
[2018-12-08] MEDS: MAGNESIUM SULFATE IV SCH ×3 (01:39→23:20)
[2018-12-08 01:41] VITALS: BP 105/62
[2018-12-08] MEDS: OMEPRAZOLE 20 MG CAPSULE.DR PO SCH (05:20)
[2018-12-08 05:22] LABS: MEAN CORPUSCULAR HEMOGLOBIN 28.8 pg (27.5-34.5); MEAN CORPUSCULAR HGB CONC 32.5 g/dL (33.2-36.2); MEAN CORPUSCULAR VOLUME 88.4 fL (81-97); PLATELET COUNT 134 x10^3/uL (130-400); RED CELL DISTRIBUTION WIDTH 16.4 % (9.4-14.8)
[2018-12-08 05:33] LABS: ALBUMIN 2.2 g/dL (3.4-5.0); ANION GAP 5 mmol/L (5-15); CALCIUM 8.1 mg/dL (8.5-10.1); CHLORIDE 104 mmol/L (98-107)
[2018-12-08 05:38] LABS: ALANINE AMINOTRANSFERASE 34 U/L (12-78); ALKALINE PHOSPHATASE 201 U/L (45-117); CREATININE 0.59 mg/dL (0.7-1.3); TOTAL PROTEIN 5.2 g/dL (6.4-8.2)
[2018-12-08 06:06] LABS: BASOPHILS # (AUTO) 0.04 x10^3/uL (0-0.1); BASOPHILS % (AUTO) 0 % (0-1); EOSINOPHILS # (AUTO) 0.02 x10^3/uL (0-0.4); EOSINOPHILS % (AUTO) 0 % (1-7); LYMPHOCYTES # (AUTO) 1.52 x10^3/uL (1-3.4); LYMPHOCYTES % (AUTO) 11 % (22-44); MD SCAN; MONOCYTES # (AUTO) 0.01 x10^3/uL (0.2-0.8); MONOCYTES % (AUTO) 0 % (2-9); NEUTROPHILS # (AUTO) 12.27 x10^3/uL (1.8-6.8); NEUTROPHILS % (AUTO) 89 % (42-75)
[2018-12-08 07:56] LABS: MICROSCOPIC AUTO
[2018-12-08 08:03] VITALS: BP 101/60
[2018-12-08] MEDS: DIAZEPAM 5 MG/ML, 2ML IV SCH ×2 (09:24→17:24)
[2018-12-08] MEDS: ALLOPURINOL 300 MG TABLET PO SCH (09:24)
[2018-12-08] MEDS: POLYETHYLENE GLYCOL 17 GM PACKET PO SCH (09:24)
[2018-12-08] MEDS: DOCUSATE 100 MG CAPSULE PO SCH ×2 (09:24→21:47)
[2018-12-08] MEDS: ONDANSETRON 16 MG, DEXAMETHASONE 10 MG in SODIUM CHLORIDE 0.9% 50 ML IVPB SCH (11:58)
[2018-12-08] MEDS: CISPLATIN 39 MG in SODIUM CHLORIDE 0.9% 250 ML IV SCH (12:46)
[2018-12-08 14:17] VITALS: BP 99/59
[2018-12-08] MEDS: ETOPOSIDE IV SCH (15:11)
[2018-12-08] MEDS ORDERED: SODIUM CHLORIDE NASAL SPRAY 45ML BOTTLE NAS PRN ×2 (16:00→21:00)
[2018-12-08] MEDS: IFOSFAMIDE IV SCH (20:04)
[2018-12-08 20:15] VITALS: BP 97/58
[2018-12-08] MEDS: MESNA IVPB SCH (21:47)
[2018-12-08] MEDS: SODIUM CHLORIDE 0.9% IVPB SCH (21:47)
[2018-12-09] VITALS (7 sets, daily range): BP systolic 95–134; BP diastolic 56–68
[2018-12-09] MEDS: DIAZEPAM 5 MG/ML, 2ML IV SCH ×4 (02:20→21:00)
[2018-12-09] MEDS: OMEPRAZOLE 20 MG CAPSULE.DR PO SCH (06:00)
[2018-12-09 06:22] LABS: MEAN CORPUSCULAR HEMOGLOBIN 29.8 pg (27.5-34.5); MEAN CORPUSCULAR HGB CONC 34.1 g/dL (33.2-36.2); MEAN CORPUSCULAR VOLUME 87.4 fL (81-97); MEAN PLATELET VOLUME 7.6 fL (7.4-10.4); PLATELET COUNT 124 x10^3/uL (130-400); RED BLOOD COUNT 2.39 x10^6/uL (4.38-5.82); RED CELL DISTRIBUTION WIDTH 15.9 % (9.4-14.8)
[2018-12-09 06:29] LABS: ALBUMIN 2.1 g/dL (3.4-5.0); ANION GAP 6 mmol/L (5-15); CHLORIDE 104 mmol/L (98-107)
[2018-12-09 06:33] LABS: ALANINE AMINOTRANSFERASE 38 U/L (12-78); ALKALINE PHOSPHATASE 201 U/L (45-117); BILIRUBIN,TOTAL 0.7 mg/dL (0.2-1.0); CREATININE 0.63 mg/dL (0.7-1.3); TOTAL PROTEIN 4.9 g/dL (6.4-8.2)
[2018-12-09 06:44] LABS: MD YES
[2018-12-09 06:48] LABS: LYMPH#(MANUAL) 1.08 x10^3/uL (1-3.4); LYMPHS% (MANUAL) 11 % (22-44); MONOS% (MANUAL) 1 % (2-9); SEG#(MANUAL) 8.62 x10^3/uL (1.8-6.8); SEGS% (MANUAL) 88 % (42-75)
[2018-12-09 06:50] LABS: ANISOCYTOSIS 1+
[2018-12-09 06:51] LABS: <PLATELET ESTIMATE> ADEQUATE; <PLT MORPHOLOGY> NORMAL PLT MORPH
[2018-12-09 07:37] LABS: MICROSCOPIC AUTO
[2018-12-09] MEDS: POTASSIUM CHLORIDE IV SCH ×2 (08:54→17:57)
[2018-12-09] MEDS: MAGNESIUM SULFATE IV SCH ×2 (08:54→17:57)
[2018-12-09] MEDS: SODIUM CHLORIDE 0.9% IV SCH ×4 (08:54→19:42)
[2018-12-09] MEDS: POLYETHYLENE GLYCOL 17 GM PACKET PO SCH (09:00)
[2018-12-09] MEDS: DOCUSATE 100 MG CAPSULE PO SCH ×2 (09:00→20:19)
[2018-12-09] MEDS: ALLOPURINOL 300 MG TABLET PO SCH (09:40)
[2018-12-09] MEDS: HEPARIN 5,000 UNITS/ML, 1ML SQ SCH (09:42)
[2018-12-09] MEDS: ONDANSETRON 16 MG, DEXAMETHASONE 10 MG in SODIUM CHLORIDE 0.9% 50 ML IVPB SCH (11:59)
[2018-12-09] MEDS: CISPLATIN 39 MG in SODIUM CHLORIDE 0.9% 250 ML IV SCH (12:50)
[2018-12-09] MEDS: ETOPOSIDE IV SCH (15:26)
[2018-12-09 15:36] LABS: MICROSCOPIC INDICATED
[2018-12-09] MEDS: IFOSFAMIDE IV SCH (19:42)
[2018-12-09] MEDS: SODIUM CHLORIDE 0.9% IVPB SCH (20:02)
[2018-12-09] MEDS: MESNA IVPB SCH (20:02)
[2018-12-09] MEDS: HYDROmorphone PCA 30 MG/30 ML IV PRN (20:20)
[2018-12-10 01:01] VITALS: BP 99/61
[2018-12-10] MEDS: SODIUM CHLORIDE 0.9% IV SCH ×2 (05:26→15:05)
[2018-12-10] MEDS: MAGNESIUM SULFATE IV SCH ×2 (05:26→15:05)
[2018-12-10] MEDS: POTASSIUM CHLORIDE IV SCH ×2 (05:26→15:05)
[2018-12-10 06:21] LABS: MEAN CORPUSCULAR HEMOGLOBIN 30.1 pg (27.5-34.5); MEAN CORPUSCULAR HGB CONC 33.8 g/dL (33.2-36.2); MEAN CORPUSCULAR VOLUME 89.1 fL (81-97); MEAN PLATELET VOLUME 7.1 fL (7.4-10.4); PLATELET COUNT 100 x10^3/uL (130-400); RED BLOOD COUNT 2.58 x10^6/uL (4.38-5.82); RED CELL DISTRIBUTION WIDTH 16.4 % (9.4-14.8)
[2018-12-10 06:28] LABS: ALANINE AMINOTRANSFERASE 48 U/L (12-78); ALBUMIN 2.1 g/dL (3.4-5.0); ANION GAP 9 mmol/L (5-15); CALCIUM 7.8 mg/dL (8.5-10.1); CHLORIDE 105 mmol/L (98-107); CREATININE 0.64 mg/dL (0.7-1.3)
[2018-12-10 06:30] LABS: ALKALINE PHOSPHATASE 195 U/L (45-117); BILIRUBIN,TOTAL 1.2 mg/dL (0.2-1.0); TOTAL PROTEIN 4.9 g/dL (6.4-8.2)
[2018-12-10] MEDS: OMEPRAZOLE 20 MG CAPSULE.DR PO SCH (06:32)
[2018-12-10 06:43] LABS: BASOPHILS # (AUTO) 0.17 x10^3/uL (0-0.1); BASOPHILS % (AUTO) 2 % (0-1); EOSINOPHILS # (AUTO) 0.05 x10^3/uL (0-0.4); EOSINOPHILS % (AUTO) 1 % (1-7); LYMPHOCYTES # (AUTO) 0.62 x10^3/uL (1-3.4); LYMPHOCYTES % (AUTO) 8 % (22-44); MD SCAN; MONOCYTES # (AUTO) 0.04 x10^3/uL (0.2-0.8); MONOCYTES % (AUTO) 1 % (2-9); NEUTROPHILS # (AUTO) 6.81 x10^3/uL (1.8-6.8); NEUTROPHILS % (AUTO) 89 % (42-75)
[2018-12-10 07:35] VITALS: BP_SYST 100; BP_SYST 115; BP_DIAS 61; BP_DIAS 65
[2018-12-10] MEDS: ALLOPURINOL 300 MG TABLET PO SCH (08:42)
[2018-12-10] MEDS: DOCUSATE 100 MG CAPSULE PO SCH ×2 (08:42→21:26)
[2018-12-10] MEDS: POLYETHYLENE GLYCOL 17 GM PACKET PO SCH (08:42)
[2018-12-10] MEDS: DIAZEPAM 5 MG/ML, 2ML IV SCH (09:00)
[2018-12-10] MEDS: ONDANSETRON 2MG/ML, 2ML IVPush PRN (12:12)
[2018-12-10] MEDS ORDERED: HEPARIN 5,000 UNITS/ML, 1ML SQ SCH (13:30)
[2018-12-10 14:00] VITALS: BP 94/58
[2018-12-10] MEDS: TAMSULOSIN 0.4 MG CAP.ER.24H PO SCH (15:05)
[2018-12-10] MEDS ORDERED: HEPARIN 5,000 UNITS/ML, 1ML IV ONE (17:00)
[2018-12-10 18:00] LABS: MEAN CORPUSCULAR HEMOGLOBIN 28.6 pg (27.5-34.5); MEAN CORPUSCULAR HGB CONC 32.5 g/dL (33.2-36.2); MEAN CORPUSCULAR VOLUME 88.2 fL (81-97); MEAN PLATELET VOLUME 7.1 fL (7.4-10.4); PLATELET COUNT 97 x10^3/uL (130-400); RED BLOOD COUNT 2.67 x10^6/uL (4.38-5.82)
[2018-12-10 18:15] LABS: BASOPHILS # (AUTO) 0.01 x10^3/uL (0-0.1); BASOPHILS % (AUTO) 0 % (0-1); EOSINOPHILS # (AUTO) 0.03 x10^3/uL (0-0.4); EOSINOPHILS % (AUTO) 1 % (1-7); LYMPHOCYTES # (AUTO) 0.71 x10^3/uL (1-3.4); LYMPHOCYTES % (AUTO) 12 % (22-44); MD SCAN; MONOCYTES % (AUTO) 0 % (2-9); NEUTROPHILS # (AUTO) 5.08 x10^3/uL (1.8-6.8); NEUTROPHILS % (AUTO) 87 % (42-75)
[2018-12-10] MEDS: HEPARIN 25,000 UNITS/500ML PMX 500 ML IV PRN (18:43)
[2018-12-10] MEDS: DIAZEPAM 2 MG TABLET PO PRN (19:43)
[2018-12-10 20:46] VITALS: BP 95/62
[2018-12-11] MEDS: HEPARIN 5,000 UNITS/ML, 1ML IV PRN ×4 (01:42→21:26)
[2018-12-11] MEDS: SODIUM CHLORIDE 0.9% IV SCH ×2 (01:57→11:53)
[2018-12-11] MEDS: POTASSIUM CHLORIDE IV SCH ×2 (01:57→11:53)
[2018-12-11] MEDS: MAGNESIUM SULFATE IV SCH ×2 (01:57→11:53)
[2018-12-11 05:07] VITALS: BP 86/49
[2018-12-11] MEDS: OMEPRAZOLE 20 MG CAPSULE.DR PO SCH (05:10)
[2018-12-11 05:19] VITALS: BP 98/62
[2018-12-11 07:50] VITALS: BP 98/60
[2018-12-11 08:17] LABS: ALANINE AMINOTRANSFERASE 57 U/L (12-78); CHLORIDE 104 mmol/L (98-107); CREATININE 0.63 mg/dL (0.7-1.3)
[2018-12-11 08:21] LABS: ALKALINE PHOSPHATASE 204 U/L (45-117); CALCIUM 7.4 mg/dL (8.5-10.1)
[2018-12-11 08:22] LABS: ANION GAP 5 mmol/L (5-15)
[2018-12-11] MEDS: ERGOCALCIFEROL 50,000 UNIT CAPSULE PO SCH (08:24)
[2018-12-11] MEDS: ALLOPURINOL 300 MG TABLET PO SCH (08:24)
[2018-12-11] MEDS: TAMSULOSIN 0.4 MG CAP.ER.24H PO SCH (08:24)
[2018-12-11] MEDS: POLYETHYLENE GLYCOL 17 GM PACKET PO SCH (08:24)
[2018-12-11] MEDS: DOCUSATE 100 MG CAPSULE PO SCH ×2 (08:26→20:34)
[2018-12-11 08:35] LABS: MEAN CORPUSCULAR HEMOGLOBIN 30.3 pg (27.5-34.5); MEAN CORPUSCULAR HGB CONC 34.3 g/dL (33.2-36.2); MEAN CORPUSCULAR VOLUME 88.4 fL (81-97); MEAN PLATELET VOLUME 7.2 fL (7.4-10.4); PLATELET COUNT 81 x10^3/uL (130-400); RED BLOOD COUNT 2.51 x10^6/uL (4.38-5.82); RED CELL DISTRIBUTION WIDTH 15.9 % (9.4-14.8)
[2018-12-11 08:36] LABS: HEMOGRAM NOTE RECHECKED
[2018-12-11 08:37] LABS: BASOPHILS # (AUTO) 0.02 x10^3/uL (0-0.1); BASOPHILS % (AUTO) 1 % (0-1); EOSINOPHILS # (AUTO) 0.03 x10^3/uL (0-0.4); EOSINOPHILS % (AUTO) 1 % (1-7); LYMPHOCYTES # (AUTO) 0.72 x10^3/uL (1-3.4); LYMPHOCYTES % (AUTO) 16 % (22-44); MD SCAN; MONOCYTES % (AUTO) 0 % (2-9); NEUTROPHILS # (AUTO) 3.59 x10^3/uL (1.8-6.8); NEUTROPHILS % (AUTO) 82 % (42-75)
[2018-12-11 08:57] LABS: PROTHROMBIN TIME 10.5 Seconds (9.6-11.5)
[2018-12-11] MEDS: TBO-FILGRASTIM 300 MCG/0.5 ML SQ SCH (09:28)
[2018-12-11] MEDS: ONDANSETRON 2MG/ML, 2ML IVPush PRN ×2 (09:28→16:50)
[2018-12-11] MEDS: DIAZEPAM 2 MG TABLET PO PRN (09:58)
[2018-12-11 13:58] VITALS: BP 105/62
[2018-12-11] MEDS: HEPARIN 25,000 UNITS/500ML PMX 500 ML IV PRN (14:58)
[2018-12-11] MEDS ORDERED: WARFARIN HIGH DOSE PROTOCOL XX SCH (19:04)
[2018-12-11] MEDS ORDERED: WARFARIN 10 MG TABLET PO-COUM ONE (19:30)
[2018-12-11 21:04] VITALS: BP 98/58
[2018-12-11] MEDS: LORazepam 1MG TABLET PO PRN (21:10)
[2018-12-12 03:17] VITALS: BP 96/58
[2018-12-12 03:40] LABS: MEAN CORPUSCULAR HEMOGLOBIN 29.6 pg (27.5-34.5); MEAN CORPUSCULAR HGB CONC 33.5 g/dL (33.2-36.2); MEAN CORPUSCULAR VOLUME 88.4 fL (81-97); PLATELET COUNT 72 x10^3/uL (130-400); RED BLOOD COUNT 2.47 x10^6/uL (4.38-5.82); RED CELL DISTRIBUTION WIDTH 15.2 % (9.4-14.8)
[2018-12-12 03:44] LABS: INTERNATIONAL NORMALIZED RATIO 0.98 (0.93-1.1); PROTHROMBIN TIME 10.3 Seconds (9.6-11.5)
[2018-12-12 03:55] LABS: BASOPHILS # (AUTO) 0.01 x10^3/uL (0-0.1); BASOPHILS % (AUTO) 0 % (0-1); EOSINOPHILS # (AUTO) 0.02 x10^3/uL (0-0.4); EOSINOPHILS % (AUTO) 1 % (1-7); LYMPHOCYTES # (AUTO) 0.62 x10^3/uL (1-3.4); LYMPHOCYTES % (AUTO) 14 % (22-44); MD SCAN; MONOCYTES % (AUTO) 0 % (2-9); NEUTROPHILS # (AUTO) 3.84 x10^3/uL (1.8-6.8); NEUTROPHILS % (AUTO) 85 % (42-75)
[2018-12-12] MEDS: HEPARIN 5,000 UNITS/ML, 1ML IV PRN ×2 (04:03→18:06)
[2018-12-12] MEDS: OMEPRAZOLE 20 MG CAPSULE.DR PO SCH (05:58)
[2018-12-12] MEDS: ONDANSETRON 2MG/ML, 2ML IVPush PRN ×2 (05:58→12:00)
[2018-12-12 07:46] VITALS: BP 100/62
[2018-12-12] MEDS: TAMSULOSIN 0.4 MG CAP.ER.24H PO SCH (08:40)
[2018-12-12] MEDS: DOCUSATE 100 MG CAPSULE PO SCH ×2 (08:40→19:27)
[2018-12-12] MEDS: POLYETHYLENE GLYCOL 17 GM PACKET PO SCH (08:40)
[2018-12-12] MEDS: TBO-FILGRASTIM 300 MCG/0.5 ML SQ SCH (08:41)
[2018-12-12] MEDS: ALLOPURINOL 300 MG TABLET PO SCH (08:41)
[2018-12-12] MEDS: HEPARIN 25,000 UNITS/500ML PMX 500 ML IV PRN (08:43)
[2018-12-12 10:05] LABS: ANION GAP 4 mmol/L (5-15); CALCIUM 7.7 mg/dL (8.5-10.1); CHLORIDE 104 mmol/L (98-107); CREATININE 0.64 mg/dL (0.7-1.3)
[2018-12-12 10:12] LABS: MEAN CORPUSCULAR HEMOGLOBIN 29.3 pg (27.5-34.5); MEAN CORPUSCULAR HGB CONC 33.4 g/dL (33.2-36.2); MEAN CORPUSCULAR VOLUME 87.8 fL (81-97); MEAN PLATELET VOLUME 7.1 fL (7.4-10.4); PLATELET COUNT 67 x10^3/uL (130-400); RED BLOOD COUNT 2.52 x10^6/uL (4.38-5.82)
[2018-12-12 10:21] LABS: BASOPHILS # (AUTO) 0.01 x10^3/uL (0-0.1); BASOPHILS % (AUTO) 0 % (0-1); EOSINOPHILS # (AUTO) 0.02 x10^3/uL (0-0.4); EOSINOPHILS % (AUTO) 1 % (1-7); LYMPHOCYTES % (AUTO) 18 % (22-44); MD SCAN; MONOCYTES % (AUTO) 0 % (2-9); NEUTROPHILS # (AUTO) 2.61 x10^3/uL (1.8-6.8); NEUTROPHILS % (AUTO) 81 % (42-75)
[2018-12-12 13:00] VITALS: BP 89/56
[2018-12-12 13:20] VITALS: BP 127/63
[2018-12-12 13:34] VITALS: BP 98/21
[2018-12-12 19:18] VITALS: BP 105/62
[2018-12-12] MEDS: LORazepam 1MG TABLET PO PRN (21:16)
[2018-12-13] VITALS (8 sets, daily range): BP systolic 96–110; BP diastolic 56–68
[2018-12-13] MEDS: HEPARIN 25,000 UNITS/500ML PMX 500 ML IV PRN ×3 (00:27→23:44)
[2018-12-13] MEDS: HEPARIN 5,000 UNITS/ML, 1ML IV PRN ×2 (01:40→12:54)
[2018-12-13] MEDS: ONDANSETRON 2MG/ML, 2ML IVPush PRN (05:35)
[2018-12-13] MEDS: OMEPRAZOLE 20 MG CAPSULE.DR PO SCH (05:35)
[2018-12-13 06:32] LABS: MEAN CORPUSCULAR HEMOGLOBIN 28.9 pg (27.5-34.5); MEAN CORPUSCULAR VOLUME 87.8 fL (81-97); MEAN PLATELET VOLUME 6.9 fL (7.4-10.4); RED BLOOD COUNT 2.25 x10^6/uL (4.38-5.82); RED CELL DISTRIBUTION WIDTH 16.1 % (9.4-14.8)
[2018-12-13 06:36] LABS: PLATELET COUNT 48 x10^3/uL (130-400)
[2018-12-13 06:57] LABS: MD YES
[2018-12-13 06:59] LABS: ALANINE AMINOTRANSFERASE 51 U/L (12-78); ALBUMIN 2.1 g/dL (3.4-5.0); ANION GAP 7 mmol/L (5-15); CALCIUM 7.7 mg/dL (8.5-10.1); CHLORIDE 105 mmol/L (98-107); CREATININE 0.65 mg/dL (0.7-1.3)
[2018-12-13 07:01] LABS: ALKALINE PHOSPHATASE 217 U/L (45-117); BILIRUBIN,TOTAL 1.1 mg/dL (0.2-1.0); TOTAL PROTEIN 4.9 g/dL (6.4-8.2)
[2018-12-13 07:05] LABS: EOS#(MANUAL) 0.01 x10^3/uL (0.0-0.4); EOS% (MANUAL) 1 % (1-7); LYMPH#(MANUAL) 0.45 x10^3/uL (1-3.4); LYMPHS% (MANUAL) 50 % (22-44); SEG#(MANUAL) 0.44 x10^3/uL (1.8-6.8); SEGS% (MANUAL) 49 % (42-75)
[2018-12-13 07:06] LABS: ANISOCYTOSIS 1+
[2018-12-13 07:07] LABS: <PLATELET ESTIMATE> DECREASED; <PLT MORPHOLOGY> NORMAL PLT MORPH
[2018-12-13] MEDS: TAMSULOSIN 0.4 MG CAP.ER.24H PO SCH (08:36)
[2018-12-13] MEDS: ALLOPURINOL 300 MG TABLET PO SCH (08:36)
[2018-12-13] MEDS: DOCUSATE 100 MG CAPSULE PO SCH ×2 (08:36→20:37)
[2018-12-13] MEDS: POLYETHYLENE GLYCOL 17 GM PACKET PO SCH (08:36)
[2018-12-13] MEDS: TBO-FILGRASTIM 300 MCG/0.5 ML SQ SCH (09:11)
[2018-12-13] MEDS: LORazepam 1MG TABLET PO PRN (23:39)
[2018-12-14] VITALS (7 sets, daily range): BP systolic 101–111; BP diastolic 58–68
[2018-12-14] MEDS: HEPARIN 5,000 UNITS/ML, 1ML IV PRN (00:34)
[2018-12-14 04:45] LABS: MEAN CORPUSCULAR HEMOGLOBIN 30.1 pg (27.5-34.5); MEAN CORPUSCULAR HGB CONC 34.9 g/dL (33.2-36.2); MEAN CORPUSCULAR VOLUME 86.3 fL (81-97); RED BLOOD COUNT 2.39 x10^6/uL (4.38-5.82); RED CELL DISTRIBUTION WIDTH 15.8 % (9.4-14.8)
[2018-12-14 04:54] LABS: ANION GAP 7 mmol/L (5-15); CALCIUM 7.7 mg/dL (8.5-10.1); CHLORIDE 103 mmol/L (98-107)
[2018-12-14 04:57] LABS: ALANINE AMINOTRANSFERASE 43 U/L (12-78); ALKALINE PHOSPHATASE 251 U/L (45-117); BILIRUBIN,TOTAL 1.9 mg/dL (0.2-1.0); CREATININE 0.64 mg/dL (0.7-1.3); TOTAL PROTEIN 5.1 g/dL (6.4-8.2)
[2018-12-14 05:45] LABS: MEAN PLATELET VOLUME 6.8 fL (7.4-10.4)
[2018-12-14 05:47] LABS: PLATELET COUNT 37 x10^3/uL (130-400)
[2018-12-14 05:50] LABS: MD YES
[2018-12-14] MEDS: ONDANSETRON 2MG/ML, 2ML IVPush PRN (05:54)
[2018-12-14] MEDS: OMEPRAZOLE 20 MG CAPSULE.DR PO SCH (05:55)
[2018-12-14 05:58] LABS: ANISOCYTOSIS 1+; EOS#(MANUAL) 0.01 x10^3/uL (0.0-0.4); EOS% (MANUAL) 1 % (1-7); LYMPH#(MANUAL) 0.42 x10^3/uL (1-3.4); LYMPHS% (MANUAL) 83 % (22-44); SEG#(MANUAL) 0.08 x10^3/uL (1.8-6.8); SEGS% (MANUAL) 16 % (42-75)
[2018-12-14 05:59] LABS: <PLATELET ESTIMATE> DECREASED; <PLT MORPHOLOGY> NORMAL PLT MORPH
[2018-12-14] MEDS: POLYETHYLENE GLYCOL 17 GM PACKET PO SCH (09:00)
[2018-12-14] MEDS: DOCUSATE 100 MG CAPSULE PO SCH ×2 (09:00→21:00)
[2018-12-14] MEDS: TAMSULOSIN 0.4 MG CAP.ER.24H PO SCH (09:20)
[2018-12-14] MEDS: ALLOPURINOL 300 MG TABLET PO SCH (09:20)
[2018-12-14] MEDS: TBO-FILGRASTIM 300 MCG/0.5 ML SQ SCH (09:21)
[2018-12-14] MEDS: HYDROmorphone PCA 30 MG/30 ML IV PRN ×2 (10:23→13:50)
[2018-12-14] MEDS: HEPARIN 25,000 UNITS/500ML PMX 500 ML IV PRN (10:26)
[2018-12-14 12:59] LABS: MICROSCOPIC INDICATED
[2018-12-14 13:13] LABS: CULTURE INDICATED? YES
[2018-12-14 19:11] LABS: MD YES; MEAN CORPUSCULAR HEMOGLOBIN 29.7 pg (27.5-34.5); MEAN CORPUSCULAR HGB CONC 34.7 g/dL (33.2-36.2); MEAN CORPUSCULAR VOLUME 85.7 fL (81-97); MEAN PLATELET VOLUME 7.4 fL (7.4-10.4); RED BLOOD COUNT 2.09 x10^6/uL (4.38-5.82); RED CELL DISTRIBUTION WIDTH 15.6 % (9.4-14.8)
[2018-12-14 19:12] LABS: PLATELET COUNT 22 x10^3/uL (130-400)
[2018-12-14] MEDS ORDERED: HEPARIN 25,000 UNITS/500ML PMX 500 ML IV SCH (19:30)
[2018-12-14] MEDS ORDERED: ACETAMINOPHEN 325 MG TABLET PO ONE (19:30)
[2018-12-14 20:30] LABS: BANDS%(MANUAL) 1 % (0-7); EOS#(MANUAL) 0.01 x10^3/uL (0.0-0.4); EOS% (MANUAL) 2 % (1-7); LYMPH#(MANUAL) 0.36 x10^3/uL (1-3.4); LYMPHS% (MANUAL) 89 % (22-44); MONOS#(MANUAL) 0.01 x10^3/uL (0.3-2.7); MONOS% (MANUAL) 2 % (2-9); SEG#(MANUAL) 0.02 x10^3/uL (1.8-6.8); SEGS% (MANUAL) 6 % (42-75)
[2018-12-14 20:31] LABS: <PLATELET ESTIMATE> DECREASED; <PLT MORPHOLOGY> NORMAL PLT MORPH; ANISOCYTOSIS 1+
[2018-12-14] MEDS: HEPARIN 25,000 UNITS/500ML PMX 500 ML IV SCH (20:40)
[2018-12-14] MEDS: DIPHENHYDRAMINE 50 MG CAPSULE PO PRN (21:21)
[2018-12-15] VITALS (15 sets, daily range): BP systolic 100–117; BP diastolic 54–71
[2018-12-15] MEDS: HEPARIN 25,000 UNITS/500ML PMX 500 ML IV SCH ×3 (04:55→21:38)
[2018-12-15] MEDS: OMEPRAZOLE 20 MG CAPSULE.DR PO SCH (06:18)
[2018-12-15 07:38] LABS: MEAN CORPUSCULAR HEMOGLOBIN 30.5 pg (27.5-34.5); MEAN CORPUSCULAR HGB CONC 35.4 g/dL (33.2-36.2); MEAN CORPUSCULAR VOLUME 86.2 fL (81-97); MEAN PLATELET VOLUME 6.9 fL (7.4-10.4); PLATELET COUNT 53 x10^3/uL (130-400); RED BLOOD COUNT 2.62 x10^6/uL (4.38-5.82); RED CELL DISTRIBUTION WIDTH 14.6 % (9.4-14.8)
[2018-12-15 07:39] LABS: MD YES
[2018-12-15 07:42] LABS: <PLATELET ESTIMATE> DECREASED; <PLT MORPHOLOGY> NORMAL PLT MORPH; ANISOCYTOSIS 1+; EOS#(MANUAL) 0.01 x10^3/uL (0.0-0.4); EOS% (MANUAL) 4 % (1-7); LYMPH#(MANUAL) 0.28 x10^3/uL (1-3.4); LYMPHS% (MANUAL) 92 % (22-44); SEG#(MANUAL) 0.01 x10^3/uL (1.8-6.8); SEGS% (MANUAL) 4 % (42-75)
[2018-12-15] MEDS: POLYETHYLENE GLYCOL 17 GM PACKET PO SCH (09:07)
[2018-12-15] MEDS: DOCUSATE 100 MG CAPSULE PO SCH ×2 (09:07→21:16)
[2018-12-15] MEDS: TAMSULOSIN 0.4 MG CAP.ER.24H PO SCH (09:07)
[2018-12-15] MEDS: ALLOPURINOL 300 MG TABLET PO SCH (09:07)
[2018-12-15] MEDS: TBO-FILGRASTIM 300 MCG/0.5 ML SQ SCH (09:07)
[2018-12-15] MEDS ORDERED: VANCOMYCIN PER PHARMACY MC PRN (11:30)
[2018-12-15] MEDS ORDERED: PHARMACOKINETIC MONITORING MC PRN (12:00)
[2018-12-15] MEDS ORDERED: PHARMACOKINETIC CONSULTATION MC ONE (12:00)
[2018-12-15] MEDS: CEFEPIME 2 GM in DEXTROSE 5% 100 ML IV SCH ×2 (12:59→21:14)
[2018-12-15] MEDS: VANCOMYCIN 1,500 MG in SODIUM CHLORIDE 0.9% 250 ML IV SCH (13:46)
[2018-12-15] MEDS ORDERED: ACETAMINOPHEN 325 MG TABLET ONE (14:58)
[2018-12-15] MEDS ORDERED: ACETAMINOPHEN 325 MG TABLET PO ONE ×2 (15:00→20:00)
[2018-12-15] MEDS ORDERED: ACETAMINOPHEN 325 MG TABLET PO PRN (15:00)
[2018-12-15] MEDS ORDERED: LACTATED RINGERS 1,000 ML IVBOLUS ONE (17:00)
[2018-12-15 18:59] LABS: MEAN CORPUSCULAR HEMOGLOBIN 30.1 pg (27.5-34.5); MEAN CORPUSCULAR HGB CONC 35.2 g/dL (33.2-36.2); MEAN CORPUSCULAR VOLUME 85.6 fL (81-97); RED BLOOD COUNT 2.23 x10^6/uL (4.38-5.82); RED CELL DISTRIBUTION WIDTH 14.9 % (9.4-14.8)
[2018-12-15 19:00] LABS: MEAN PLATELET VOLUME 7.2 fL (7.4-10.4); PLATELET COUNT 38 x10^3/uL (130-400)
[2018-12-15] MEDS ORDERED: DIPHENHYDRAMINE 50 MG CAPSULE PO PRN (20:00)
[2018-12-15 20:27] LABS: MD YES
[2018-12-15 20:30] LABS: <PLATELET ESTIMATE> DECREASED; <PLT MORPHOLOGY> NORMAL PLT MORPH; ANISOCYTOSIS 1+; LYMPH#(MANUAL) 0.25 x10^3/uL (1-3.4); LYMPHS% (MANUAL) 84 % (22-44); MONOS#(MANUAL) 0.05 x10^3/uL (0.3-2.7); MONOS% (MANUAL) 16 % (2-9)
[2018-12-15] MEDS: LACTATED RINGERS 1,000 ML IV SCH (21:15)
[2018-12-15] MEDS: DIPHENHYDRAMINE 50 MG CAPSULE PO PRN (21:34)
[2018-12-16 00:07] VITALS: BP 104/63
[2018-12-16] MEDS: VANCOMYCIN 1,500 MG in SODIUM CHLORIDE 0.9% 250 ML IV SCH ×2 (01:49→13:34)
[2018-12-16 01:52] VITALS: BP 105/62
[2018-12-16] MEDS: LORazepam 1MG TABLET PO PRN ×2 (02:03→21:07)
[2018-12-16] MEDS: CEFEPIME 2 GM in DEXTROSE 5% 100 ML IV SCH ×3 (05:12→21:08)
[2018-12-16] MEDS: OMEPRAZOLE 20 MG CAPSULE.DR PO SCH (05:16)
[2018-12-16 05:36] LABS: MEAN CORPUSCULAR HEMOGLOBIN 30.3 pg (27.5-34.5); MEAN CORPUSCULAR HGB CONC 35.2 g/dL (33.2-36.2); RED BLOOD COUNT 2.66 x10^6/uL (4.38-5.82); RED CELL DISTRIBUTION WIDTH 15.3 % (9.4-14.8)
[2018-12-16] MEDS: HEPARIN 25,000 UNITS/500ML PMX 500 ML IV SCH ×3 (06:12→23:53)
[2018-12-16 06:40] LABS: MD YES; MEAN PLATELET VOLUME 7.8 fL (7.4-10.4)
[2018-12-16 06:41] LABS: PLATELET COUNT 34 x10^3/uL (130-400)
[2018-12-16 07:00] LABS: BASOS#(MANUAL) 0.01 x10^3/uL (0-0.1); BASOS% (MANUAL) 1 % (0-1); LYMPH#(MANUAL) 0.48 x10^3/uL (1-3.4); LYMPHS% (MANUAL) 96 % (22-44); MONOS#(MANUAL) 0.01 x10^3/uL (0.3-2.7); MONOS% (MANUAL) 1 % (2-9); SEG#(MANUAL) 0.01 x10^3/uL (1.8-6.8); SEGS% (MANUAL) 1 % (42-75)
[2018-12-16 07:01] LABS: <PLATELET ESTIMATE> DECREASED; <PLT MORPHOLOGY> NORMAL PLT MORPH; ANISOCYTOSIS 1+; OTHER CELLS # (MANUAL) 0.01 x10^3/uL (0-0); OTHER CELLS % (MANUAL) 1 % (0-0); POLYCHROMASIA 1+
[2018-12-16 08:22] VITALS: BP 106/62
[2018-12-16] MEDS: POLYETHYLENE GLYCOL 17 GM PACKET PO SCH (09:00)
[2018-12-16] MEDS: DOCUSATE 100 MG CAPSULE PO SCH ×2 (09:00→21:07)
[2018-12-16] MEDS: LACTATED RINGERS 1,000 ML IV SCH (09:23)
[2018-12-16] MEDS: ALLOPURINOL 300 MG TABLET PO SCH (09:23)
[2018-12-16] MEDS: TAMSULOSIN 0.4 MG CAP.ER.24H PO SCH (09:23)
[2018-12-16] MEDS: TBO-FILGRASTIM 300 MCG/0.5 ML SQ SCH (09:56)
[2018-12-16] MEDS ORDERED: OMNIPAQUE 350 MG/ML, 100ML BOTTLE ONE (17:49)
[2018-12-16 19:17] LABS: MEAN CORPUSCULAR HEMOGLOBIN 29.5 pg (27.5-34.5); MEAN CORPUSCULAR HGB CONC 34.2 g/dL (33.2-36.2); MEAN CORPUSCULAR VOLUME 86.3 fL (81-97); MEAN PLATELET VOLUME 7.8 fL (7.4-10.4); RED BLOOD COUNT 2.62 x10^6/uL (4.38-5.82); RED CELL DISTRIBUTION WIDTH 15.6 % (9.4-14.8)
[2018-12-16 19:19] LABS: MD YES; PLATELET COUNT 32 x10^3/uL (130-400)
[2018-12-16 19:57] LABS: BAND#(MANUAL) 0.03 x10^3/uL; BANDS%(MANUAL) 5 % (0-7); LYMPH#(MANUAL) 0.35 x10^3/uL (1-3.4); LYMPHS% (MANUAL) 69 % (22-44); METAMYELOCYTES# (MANUAL) 0.01 x10^3/uL (0-0); METAMYELOCYTES% (MANUAL) 1 % (0-1); MONOS#(MANUAL) 0.08 x10^3/uL (0.3-2.7); MONOS% (MANUAL) 15 % (2-9); MYELOCYTES# (MANUAL) 0.01 x10^3/uL (0-0); MYELOCYTES% (MANUAL) 1 % (0-0); NRBC % (MANUAL) 1 % (0-1); OTHER CELLS # (MANUAL) 0.04 x10^3/uL (0-0); OTHER CELLS % (MANUAL) 7 % (0-0); SEG#(MANUAL) 0.01 x10^3/uL (1.8-6.8); SEGS% (MANUAL) 2 % (42-75)
[2018-12-16 19:58] LABS: <PLATELET ESTIMATE> DECREASED; <PLT MORPHOLOGY> NORMAL PLT MORPH; ANISOCYTOSIS 1+; POLYCHROMASIA 1+
[2018-12-16 20:21] VITALS: BP 103/59
[2018-12-17] MEDS: VANCOMYCIN 1,500 MG in SODIUM CHLORIDE 0.9% 250 ML IV SCH (01:52)
[2018-12-17 01:53] VITALS: BP 106/60
[2018-12-17] MEDS: CEFEPIME 2 GM in DEXTROSE 5% 100 ML IV SCH ×3 (04:37→21:10)
[2018-12-17] MEDS ORDERED: ACETAMINOPHEN 325 MG TABLET PO ONE (05:00)
[2018-12-17] MEDS ORDERED: DIPHENHYDRAMINE 25 MG CAPSULE PO ONE (05:00)
[2018-12-17] MEDS: OMEPRAZOLE 20 MG CAPSULE.DR PO SCH (05:26)
[2018-12-17 06:00] VITALS: BP 107/64
[2018-12-17 06:24] LABS: MEAN CORPUSCULAR HEMOGLOBIN 29.1 pg (27.5-34.5); MEAN CORPUSCULAR HGB CONC 34.1 g/dL (33.2-36.2); MEAN CORPUSCULAR VOLUME 85.1 fL (81-97); MEAN PLATELET VOLUME 7.6 fL (7.4-10.4); RED BLOOD COUNT 2.43 x10^6/uL (4.38-5.82); RED CELL DISTRIBUTION WIDTH 15.6 % (9.4-14.8)
[2018-12-17 06:26] VITALS: BP 109/67
[2018-12-17 06:29] LABS: ALANINE AMINOTRANSFERASE 21 U/L (12-78); ALBUMIN 1.7 g/dL (3.4-5.0); ANION GAP 7 mmol/L (5-15); CALCIUM 7.5 mg/dL (8.5-10.1); CHLORIDE 102 mmol/L (98-107); CREATININE 0.58 mg/dL (0.7-1.3)
[2018-12-17 06:31] LABS: ALKALINE PHOSPHATASE 270 U/L (45-117); BILIRUBIN,TOTAL 1.2 mg/dL (0.2-1.0); TOTAL PROTEIN 4.9 g/dL (6.4-8.2)
[2018-12-17 07:02] LABS: PLATELET COUNT 38 x10^3/uL (130-400)
[2018-12-17 07:17] VITALS: BP 108/63
[2018-12-17 07:20] LABS: MD YES
[2018-12-17 07:36] LABS: BAND#(MANUAL) 0.04 x10^3/uL; BANDS%(MANUAL) 6 % (0-7); LYMPH#(MANUAL) 0.46 x10^3/uL (1-3.4); LYMPHS% (MANUAL) 65 % (22-44); MONOS#(MANUAL) 0.12 x10^3/uL (0.3-2.7); MONOS% (MANUAL) 17 % (2-9); SEG#(MANUAL) 0.06 x10^3/uL (1.8-6.8); SEGS% (MANUAL) 9 % (42-75)
[2018-12-17 07:37] LABS: ANISOCYTOSIS 1+; OTHER CELLS # (MANUAL) 0.02 x10^3/uL (0-0); OTHER CELLS % (MANUAL) 3 % (0-0)
[2018-12-17 07:38] LABS: <PLATELET ESTIMATE> DECREASED; LARGE PLATELETS 1+; POLYCHROMASIA 1+; TOXIC GRAN 1+
[2018-12-17 08:00] VITALS: BP 106/71
[2018-12-17] MEDS ORDERED: LIDOCAINE 1%, 10ML ONE (08:30)
[2018-12-17] MEDS: ALLOPURINOL 300 MG TABLET PO SCH (09:21)
[2018-12-17] MEDS: DOCUSATE 100 MG CAPSULE PO SCH ×2 (09:21→20:04)
[2018-12-17] MEDS: POLYETHYLENE GLYCOL 17 GM PACKET PO SCH (09:21)
[2018-12-17] MEDS: TAMSULOSIN 0.4 MG CAP.ER.24H PO SCH (09:21)
[2018-12-17] MEDS: TBO-FILGRASTIM 300 MCG/0.5 ML SQ SCH (09:21)
[2018-12-17] MEDS ORDERED: POTASSIUM CHLORIDE 20 MEQ TAB.ER.PRT PO ONE (09:30)
[2018-12-17] MEDS: HEPARIN 25,000 UNITS/500ML PMX 500 ML IV SCH ×2 (09:34→18:33)
[2018-12-17] MEDS: POTASSIUM CHLORIDE 20 MEQ in LACTATED RINGERS 1,000 ML IV SCH ×2 (09:55→20:49)
[2018-12-17 12:20] LABS: MICROSCOPIC INDICATED
[2018-12-17] MEDS: MAGNESIUM HYDROXIDE 8%, 30ML UDC PO PRN (13:38)
[2018-12-17] MEDS: HYDROmorphone PCA 30 MG/30 ML IV PRN (14:59)
[2018-12-17] MEDS: DIAZEPAM 2 MG TABLET PO PRN (18:33)
[2018-12-17 19:25] LABS: MEAN CORPUSCULAR HEMOGLOBIN 29.7 pg (27.5-34.5); MEAN CORPUSCULAR HGB CONC 34.3 g/dL (33.2-36.2); MEAN CORPUSCULAR VOLUME 86.5 fL (81-97); MEAN PLATELET VOLUME 8.4 fL (7.4-10.4); PLATELET COUNT 56 x10^3/uL (130-400); RED BLOOD COUNT 2.39 x10^6/uL (4.38-5.82); RED CELL DISTRIBUTION WIDTH 15.8 % (9.4-14.8)
[2018-12-17 19:27] LABS: MD YES
[2018-12-17 19:43] LABS: BAND#(MANUAL) 0.03 x10^3/uL; BANDS%(MANUAL) 3 % (0-7); LYMPH#(MANUAL) 0.53 x10^3/uL (1-3.4); LYMPHS% (MANUAL) 53 % (22-44); MONOS#(MANUAL) 0.16 x10^3/uL (0.3-2.7); MONOS% (MANUAL) 16 % (2-9); SEG#(MANUAL) 0.21 x10^3/uL (1.8-6.8); SEGS% (MANUAL) 21 % (42-75)
[2018-12-17 19:44] LABS: NRBC % (MANUAL) 5 % (0-1); OTHER CELLS # (MANUAL) 0.07 x10^3/uL (0-0); OTHER CELLS % (MANUAL) 7 % (0-0)
[2018-12-17 19:46] LABS: <PLATELET ESTIMATE> DECREASED; ANISOCYTOSIS 1+; LARGE PLATELETS 1+; POLYCHROMASIA 1+; TOXIC GRAN 1+
[2018-12-17 19:54] VITALS: BP 104/60
[2018-12-17] MEDS: TEMAZEPAM 15 MG CAPSULE PO PRN ×2 (20:04→20:50)
[2018-12-18] MEDS: HEPARIN 25,000 UNITS/500ML PMX 500 ML IV SCH ×3 (02:32→21:30)
[2018-12-18 03:19] VITALS: BP 108/68
[2018-12-18 05:13] LABS: MEAN CORPUSCULAR HEMOGLOBIN 29.5 pg (27.5-34.5); MEAN CORPUSCULAR HGB CONC 34.3 g/dL (33.2-36.2); MEAN CORPUSCULAR VOLUME 85.9 fL (81-97); MEAN PLATELET VOLUME 8.1 fL (7.4-10.4); PLATELET COUNT 53 x10^3/uL (130-400); RED BLOOD COUNT 2.36 x10^6/uL (4.38-5.82); RED CELL DISTRIBUTION WIDTH 15.5 % (9.4-14.8)
[2018-12-18 05:41] LABS: MD YES
[2018-12-18 05:47] LABS: BAND#(MANUAL) 0.11 x10^3/uL; BANDS%(MANUAL) 7 % (0-7); LYMPHS% (MANUAL) 33 % (22-44); METAMYELOCYTES# (MANUAL) 0.09 x10^3/uL (0-0); METAMYELOCYTES% (MANUAL) 6 % (0-1); MONOS#(MANUAL) 0.18 x10^3/uL (0.3-2.7); MONOS% (MANUAL) 12 % (2-9); MYELOCYTES# (MANUAL) 0.05 x10^3/uL (0-0); MYELOCYTES% (MANUAL) 3 % (0-0); NRBC % (MANUAL) 1 % (0-1); OTHER CELLS # (MANUAL) 0.05 x10^3/uL (0-0); SEG#(MANUAL) 0.54 x10^3/uL (1.8-6.8); SEGS% (MANUAL) 36 % (42-75)
[2018-12-18 05:50] LABS: OTHER CELLS % (MANUAL) 3 % (0-0)
[2018-12-18 05:51] LABS: <PLATELET ESTIMATE> DECREASED; ANISOCYTOSIS 1+; LARGE PLATELETS 1+; POLYCHROMASIA 1+; TOXIC GRAN 1+
[2018-12-18] MEDS: OMEPRAZOLE 20 MG CAPSULE.DR PO SCH (06:13)
[2018-12-18] MEDS: DIAZEPAM 2 MG TABLET PO PRN (06:13)
[2018-12-18] MEDS: CEFEPIME 2 GM in DEXTROSE 5% 100 ML IV SCH ×3 (06:13→21:28)
[2018-12-18] MEDS: POTASSIUM CHLORIDE 20 MEQ in LACTATED RINGERS 1,000 ML IV SCH ×2 (06:41→17:07)
[2018-12-18 07:57] VITALS: BP 101/61
[2018-12-18 10:44] LABS: ANION GAP 6 mmol/L (5-15); CHLORIDE 105 mmol/L (98-107)
[2018-12-18 10:48] LABS: CALCIUM 7.7 mg/dL (8.5-10.1)
[2018-12-18] MEDS: TAMSULOSIN 0.4 MG CAP.ER.24H PO SCH (10:48)
[2018-12-18] MEDS: ALLOPURINOL 300 MG TABLET PO SCH (10:48)
[2018-12-18] MEDS: DOCUSATE 100 MG CAPSULE PO SCH ×2 (10:48→21:28)
[2018-12-18] MEDS: POLYETHYLENE GLYCOL 17 GM PACKET PO SCH (10:48)
[2018-12-18] MEDS: TBO-FILGRASTIM 300 MCG/0.5 ML SQ SCH (10:52)
[2018-12-18] MEDS: ERGOCALCIFEROL 50,000 UNIT CAPSULE PO SCH (12:44)
[2018-12-18] MEDS: LORazepam 1MG TABLET PO PRN ×2 (13:22→21:35)
[2018-12-18 14:03] VITALS: BP 108/66
[2018-12-18 18:50] LABS: MD YES; MEAN CORPUSCULAR HEMOGLOBIN 28.8 pg (27.5-34.5); MEAN CORPUSCULAR HGB CONC 33.4 g/dL (33.2-36.2); MEAN CORPUSCULAR VOLUME 86.3 fL (81-97); MEAN PLATELET VOLUME 7.9 fL (7.4-10.4); PLATELET COUNT 64 x10^3/uL (130-400); RED BLOOD COUNT 2.52 x10^6/uL (4.38-5.82); RED CELL DISTRIBUTION WIDTH 15.3 % (9.4-14.8)
[2018-12-18 19:02] LABS: BAND#(MANUAL) 0.58 x10^3/uL; BANDS%(MANUAL) 18 % (0-7); LYMPH#(MANUAL) 1.31 x10^3/uL (1-3.4); LYMPHS% (MANUAL) 41 % (22-44); METAMYELOCYTES# (MANUAL) 0.19 x10^3/uL (0-0); METAMYELOCYTES% (MANUAL) 6 % (0-1); MONOS#(MANUAL) 0.22 x10^3/uL (0.3-2.7); MONOS% (MANUAL) 7 % (2-9); MYELOCYTES# (MANUAL) 0.13 x10^3/uL (0-0); MYELOCYTES% (MANUAL) 4 % (0-0); NRBC % (MANUAL) 2 % (0-1); REACTIVE LYMPHS # (MANUAL) 0.06 x10^3/uL (0-0); REACTIVE LYMPHS % (MANUAL) 2 % (0-0); SEGS% (MANUAL) 22 % (42-75)
[2018-12-18 19:03] LABS: ANISOCYTOSIS 1+
[2018-12-18 19:04] LABS: POLYCHROMASIA 1+
[2018-12-18 19:05] LABS: <PLATELET ESTIMATE> DECREASED; LARGE PLATELETS 1+; TOXIC GRAN 1+
[2018-12-18 20:30] VITALS: BP 106/67
[2018-12-19 02:29] VITALS: BP 108/69
[2018-12-19] MEDS: POTASSIUM CHLORIDE 20 MEQ in LACTATED RINGERS 1,000 ML IV SCH (03:07)
[2018-12-19 05:06] LABS: MEAN CORPUSCULAR HEMOGLOBIN 29.5 pg (27.5-34.5); MEAN CORPUSCULAR HGB CONC 34.2 g/dL (33.2-36.2); PLATELET COUNT 64 x10^3/uL (130-400); RED BLOOD COUNT 2.47 x10^6/uL (4.38-5.82); RED CELL DISTRIBUTION WIDTH 14.8 % (9.4-14.8)
[2018-12-19 05:11] LABS: ANION GAP 5 mmol/L (5-15); CALCIUM 7.6 mg/dL (8.5-10.1); CHLORIDE 106 mmol/L (98-107)
[2018-12-19 05:12] LABS: CREATININE 0.41 mg/dL (0.7-1.3)
[2018-12-19] MEDS: CEFEPIME 2 GM in DEXTROSE 5% 100 ML IV SCH ×2 (05:27→13:15)
[2018-12-19 06:22] LABS: MD YES
[2018-12-19 06:26] LABS: ANISOCYTOSIS 1+; BAND#(MANUAL) 1.23 x10^3/uL; BANDS%(MANUAL) 25 % (0-7); LYMPH#(MANUAL) 1.03 x10^3/uL (1-3.4); LYMPHS% (MANUAL) 21 % (22-44); METAMYELOCYTES# (MANUAL) 0.25 x10^3/uL (0-0); METAMYELOCYTES% (MANUAL) 5 % (0-1); MONOS#(MANUAL) 0.39 x10^3/uL (0.3-2.7); MONOS% (MANUAL) 8 % (2-9); MYELOCYTES% (MANUAL) 2 % (0-0); SEG#(MANUAL) 1.91 x10^3/uL (1.8-6.8); SEGS% (MANUAL) 39 % (42-75)
[2018-12-19 06:27] LABS: OVALOCYTES 1+
[2018-12-19 06:29] LABS: <PLATELET ESTIMATE> DECREASED; <PLT MORPHOLOGY> NORMAL PLT MORPH; TOXIC GRAN 1+
[2018-12-19 06:30] LABS: POLYCHROMASIA 1+
[2018-12-19] MEDS: HEPARIN 25,000 UNITS/500ML PMX 500 ML IV SCH ×2 (06:34→15:22)
[2018-12-19 07:39] VITALS: BP 111/66
[2018-12-19] MEDS: OMEPRAZOLE 20 MG CAPSULE.DR PO SCH (08:00)
[2018-12-19] MEDS: POTASSIUM CHLORIDE 20 MEQ TAB.ER.PRT PO SCH ×4 (08:02→20:52)
[2018-12-19] MEDS: TBO-FILGRASTIM 300 MCG/0.5 ML SQ SCH (09:00)
[2018-12-19] MEDS: ALLOPURINOL 300 MG TABLET PO SCH (10:15)
[2018-12-19] MEDS: TAMSULOSIN 0.4 MG CAP.ER.24H PO SCH (10:15)
[2018-12-19] MEDS: POLYETHYLENE GLYCOL 17 GM PACKET PO SCH (10:15)
[2018-12-19] MEDS: DOCUSATE 100 MG CAPSULE PO SCH ×2 (10:15→20:52)
[2018-12-19 13:33] VITALS: BP 100/61
[2018-12-19 19:25] VITALS: BP 105/67
[2018-12-19 20:10] LABS: MEAN CORPUSCULAR HEMOGLOBIN 29.7 pg (27.5-34.5); MEAN CORPUSCULAR HGB CONC 34.3 g/dL (33.2-36.2); MEAN CORPUSCULAR VOLUME 86.6 fL (81-97); MEAN PLATELET VOLUME 7.6 fL (7.4-10.4); PLATELET COUNT 75 x10^3/uL (130-400); RED BLOOD COUNT 2.34 x10^6/uL (4.38-5.82); RED CELL DISTRIBUTION WIDTH 15.3 % (9.4-14.8)
[2018-12-19] MEDS: LORazepam 1MG TABLET PO PRN (20:52)
[2018-12-19 21:02] LABS: MD YES
[2018-12-19 21:34] LABS: BAND#(MANUAL) 0.96 x10^3/uL; BANDS%(MANUAL) 16 % (0-7); EOS#(MANUAL) 0.06 x10^3/uL (0.0-0.4); EOS% (MANUAL) 1 % (1-7); LYMPH#(MANUAL) 1.08 x10^3/uL (1-3.4); LYMPHS% (MANUAL) 18 % (22-44); MONOS% (MANUAL) 10 % (2-9); MYELOCYTES# (MANUAL) 0.48 x10^3/uL (0-0); MYELOCYTES% (MANUAL) 8 % (0-0); PROGRANULOCYTES# (MANUAL) 0.06 x10^3/uL (0-0); PROGRANULOCYTES% (MANUAL) 1 % (0-0); REACTIVE LYMPHS # (MANUAL) 0.12 x10^3/uL (0-0); REACTIVE LYMPHS % (MANUAL) 2 % (0-0); SEG#(MANUAL) 2.64 x10^3/uL (1.8-6.8); SEGS% (MANUAL) 44 % (42-75)
[2018-12-19 21:36] LABS: ANISOCYTOSIS 1+; ROULEAUX 1+
[2018-12-19 21:37] LABS: <PLATELET ESTIMATE> DECREASED; <PLT MORPHOLOGY> NORMAL PLT MORPH
[2018-12-19 22:22] VITALS: BP 104/63
[2018-12-19 22:43] VITALS: BP 100/64
[2018-12-20] MEDS: HEPARIN 25,000 UNITS/500ML PMX 500 ML IV SCH ×3 (00:25→20:09)
[2018-12-20 00:41] VITALS: BP 103/68
[2018-12-20 02:21] VITALS: BP 107/61
[2018-12-20] MEDS: OMEPRAZOLE 20 MG CAPSULE.DR PO SCH (05:25)
[2018-12-20] MEDS: DIAZEPAM 2 MG TABLET PO PRN ×2 (05:25→14:35)
[2018-12-20 05:31] LABS: MEAN CORPUSCULAR HGB CONC 33.9 g/dL (33.2-36.2); MEAN CORPUSCULAR VOLUME 88.3 fL (81-97); PLATELET COUNT 81 x10^3/uL (130-400); RED BLOOD COUNT 2.84 x10^6/uL (4.38-5.82); RED CELL DISTRIBUTION WIDTH 14.7 % (9.4-14.8)
[2018-12-20 05:32] LABS: MD YES
[2018-12-20 06:10] LABS: BAND#(MANUAL) 1.33 x10^3/uL; BANDS%(MANUAL) 19 % (0-7); LYMPH#(MANUAL) 1.05 x10^3/uL (1-3.4); LYMPHS% (MANUAL) 15 % (22-44); METAMYELOCYTES# (MANUAL) 0.91 x10^3/uL (0-0); METAMYELOCYTES% (MANUAL) 13 % (0-1); MONOS#(MANUAL) 0.35 x10^3/uL (0.3-2.7); MONOS% (MANUAL) 5 % (2-9); MYELOCYTES# (MANUAL) 0.56 x10^3/uL (0-0); MYELOCYTES% (MANUAL) 8 % (0-0); NRBC % (MANUAL) 1 % (0-1); PROGRANULOCYTES# (MANUAL) 0.14 x10^3/uL (0-0); PROGRANULOCYTES% (MANUAL) 2 % (0-0); SEG#(MANUAL) 2.66 x10^3/uL (1.8-6.8); SEGS% (MANUAL) 38 % (42-75); TOXIC GRAN 2+
[2018-12-20 06:12] LABS: ANISOCYTOSIS 1+; OVALOCYTES 1+
[2018-12-20 06:13] LABS: <PLATELET ESTIMATE> DECREASED; <PLT MORPHOLOGY> NORMAL PLT MORPH
[2018-12-20] MEDS ORDERED: POTASSIUM CHLORIDE 20 MEQ TAB.ER.PRT PO ONE (08:00)
[2018-12-20 08:18] VITALS: BP 109/72
[2018-12-20] MEDS: TBO-FILGRASTIM 300 MCG/0.5 ML SQ SCH (09:00)
[2018-12-20] MEDS: CEFTRIAXONE PMX 2GM/50ML 50 ML IV SCH (09:56)
[2018-12-20] MEDS: TAMSULOSIN 0.4 MG CAP.ER.24H PO SCH (09:57)
[2018-12-20] MEDS: DOCUSATE 100 MG CAPSULE PO SCH ×2 (09:57→21:26)
[2018-12-20] MEDS: POLYETHYLENE GLYCOL 17 GM PACKET PO SCH (09:57)
[2018-12-20] MEDS: ALLOPURINOL 300 MG TABLET PO SCH (09:57)
[2018-12-20 13:04] VITALS: BP 106/67
[2018-12-20 19:49] VITALS: BP 109/63
[2018-12-20] MEDS: LORazepam 1MG TABLET PO PRN (21:26)
[2018-12-21 01:50] VITALS: BP 111/66
[2018-12-21] MEDS: HEPARIN 25,000 UNITS/500ML PMX 500 ML IV SCH ×2 (04:47→15:20)
[2018-12-21 04:53] LABS: MEAN CORPUSCULAR HEMOGLOBIN 30.2 pg (27.5-34.5); MEAN CORPUSCULAR HGB CONC 34.4 g/dL (33.2-36.2); MEAN CORPUSCULAR VOLUME 87.8 fL (81-97); MEAN PLATELET VOLUME 7.8 fL (7.4-10.4); PLATELET COUNT 115 x10^3/uL (130-400); RED BLOOD COUNT 2.78 x10^6/uL (4.38-5.82)
[2018-12-21] MEDS: OMEPRAZOLE 20 MG CAPSULE.DR PO SCH (04:56)
[2018-12-21] MEDS: DIAZEPAM 2 MG TABLET PO PRN ×2 (04:56→12:56)
[2018-12-21 05:02] LABS: ALBUMIN 1.9 g/dL (3.4-5.0); ANION GAP 7 mmol/L (5-15); CALCIUM 7.8 mg/dL (8.5-10.1); CHLORIDE 109 mmol/L (98-107)
[2018-12-21 05:07] LABS: ALANINE AMINOTRANSFERASE 15 U/L (12-78); ALKALINE PHOSPHATASE 258 U/L (45-117); BILIRUBIN,TOTAL 0.6 mg/dL (0.2-1.0); TOTAL PROTEIN 5.1 g/dL (6.4-8.2)
[2018-12-21 05:58] LABS: MD YES
[2018-12-21 06:03] LABS: ANISOCYTOSIS 1+; BANDS%(MANUAL) 15 % (0-7); LYMPH#(MANUAL) 1.86 x10^3/uL (1-3.4); LYMPHS% (MANUAL) 20 % (22-44); METAMYELOCYTES# (MANUAL) 0.56 x10^3/uL (0-0); METAMYELOCYTES% (MANUAL) 6 % (0-1); MONOS#(MANUAL) 1.21 x10^3/uL (0.3-2.7); MONOS% (MANUAL) 13 % (2-9); MYELOCYTES# (MANUAL) 0.74 x10^3/uL (0-0); MYELOCYTES% (MANUAL) 8 % (0-0); SEG#(MANUAL) 3.53 x10^3/uL (1.8-6.8); SEGS% (MANUAL) 38 % (42-75)
[2018-12-21 06:05] LABS: <PLATELET ESTIMATE> DECREASED; <PLT MORPHOLOGY> NORMAL PLT MORPH; POLYCHROMASIA 1+
[2018-12-21 06:07] LABS: TOXIC GRAN 1+
[2018-12-21 08:22] VITALS: BP 112/69
[2018-12-21] MEDS: TBO-FILGRASTIM 300 MCG/0.5 ML SQ SCH (09:00)
[2018-12-21] MEDS: POLYETHYLENE GLYCOL 17 GM PACKET PO SCH (09:36)
[2018-12-21] MEDS: ALLOPURINOL 300 MG TABLET PO SCH (09:36)
[2018-12-21] MEDS: CEFTRIAXONE PMX 2GM/50ML 50 ML IV SCH (09:36)
[2018-12-21] MEDS: DOCUSATE 100 MG CAPSULE PO SCH ×2 (09:36→20:57)
[2018-12-21] MEDS: TAMSULOSIN 0.4 MG CAP.ER.24H PO SCH (09:36)
[2018-12-21] MEDS: MAGNESIUM HYDROXIDE 8%, 30ML UDC PO PRN (09:36)
[2018-12-21 13:28] VITALS: BP 114/69
[2018-12-21 18:58] VITALS: BP 116/65
[2018-12-21] MEDS: HYDROmorphone PCA 30 MG/30 ML IV PRN (19:56)
[2018-12-21] MEDS: LORazepam 1MG TABLET PO PRN (21:58)
[2018-12-22] MEDS: HEPARIN 25,000 UNITS/500ML PMX 500 ML IV SCH ×3 (00:36→20:29)
[2018-12-22 03:55] VITALS: BP 101/64
[2018-12-22] MEDS: DIAZEPAM 2 MG TABLET PO PRN ×3 (04:22→17:27)
[2018-12-22 05:33] LABS: ANION GAP 6 mmol/L (5-15); CALCIUM 7.8 mg/dL (8.5-10.1); CHLORIDE 107 mmol/L (98-107); CREATININE 0.52 mg/dL (0.7-1.3)
[2018-12-22 05:38] LABS: MEAN CORPUSCULAR HEMOGLOBIN 29.8 pg (27.5-34.5); MEAN CORPUSCULAR VOLUME 87.5 fL (81-97); MEAN PLATELET VOLUME 7.2 fL (7.4-10.4); PLATELET COUNT 159 x10^3/uL (130-400); RED BLOOD COUNT 2.66 x10^6/uL (4.38-5.82); RED CELL DISTRIBUTION WIDTH 15.4 % (9.4-14.8)
[2018-12-22] MEDS: OMEPRAZOLE 20 MG CAPSULE.DR PO SCH (05:41)
[2018-12-22 06:35] LABS: MD YES
[2018-12-22 06:38] LABS: ANISOCYTOSIS 1+; BAND#(MANUAL) 1.13 x10^3/uL; BANDS%(MANUAL) 9 % (0-7); LYMPH#(MANUAL) 1.76 x10^3/uL (1-3.4); LYMPHS% (MANUAL) 14 % (22-44); METAMYELOCYTES# (MANUAL) 1.76 x10^3/uL (0-0); METAMYELOCYTES% (MANUAL) 14 % (0-1); MONOS#(MANUAL) 0.88 x10^3/uL (0.3-2.7); MONOS% (MANUAL) 7 % (2-9); MYELOCYTES# (MANUAL) 0.63 x10^3/uL (0-0); MYELOCYTES% (MANUAL) 5 % (0-0); SEG#(MANUAL) 6.43 x10^3/uL (1.8-6.8); SEGS% (MANUAL) 51 % (42-75)
[2018-12-22 06:39] LABS: <PLATELET ESTIMATE> ADEQUATE; <PLT MORPHOLOGY> NORMAL PLT MORPH; POLYCHROMASIA 1+
[2018-12-22 06:40] LABS: TOXIC GRAN 1+
[2018-12-22] MEDS: MAGNESIUM HYDROXIDE 8%, 30ML UDC PO PRN (08:23)
[2018-12-22] MEDS: ALLOPURINOL 300 MG TABLET PO SCH (08:23)
[2018-12-22] MEDS: POLYETHYLENE GLYCOL 17 GM PACKET PO SCH (08:23)
[2018-12-22] MEDS: TAMSULOSIN 0.4 MG CAP.ER.24H PO SCH (08:24)
[2018-12-22] MEDS: DOCUSATE 100 MG CAPSULE PO SCH ×2 (08:24→20:13)
[2018-12-22] MEDS: TBO-FILGRASTIM 300 MCG/0.5 ML SQ SCH (08:30)
[2018-12-22 09:08] VITALS: BP 113/71
[2018-12-22] MEDS: CEFTRIAXONE PMX 2GM/50ML 50 ML IV SCH (10:20)
[2018-12-22] MEDS: LORazepam 1MG TABLET PO PRN (20:13)
[2018-12-22 20:15] VITALS: BP 109/68
[2018-12-23] MEDS: DIAZEPAM 2 MG TABLET PO PRN ×2 (00:25→10:42)
[2018-12-23 01:42] VITALS: BP 104/65
[2018-12-23] MEDS: LORazepam 1MG TABLET PO PRN ×2 (03:20→22:05)
[2018-12-23 04:50] LABS: MEAN CORPUSCULAR HGB CONC 34.1 g/dL (33.2-36.2); MEAN PLATELET VOLUME 6.8 fL (7.4-10.4); NEUTROPHILS % (AUTO) 81 % (42-75); PLATELET COUNT 216 x10^3/uL (130-400); RED BLOOD COUNT 2.61 x10^6/uL (4.38-5.82); RED CELL DISTRIBUTION WIDTH 15.2 % (9.4-14.8)
[2018-12-23] MEDS: OMEPRAZOLE 20 MG CAPSULE.DR PO SCH (05:27)
[2018-12-23] MEDS: HEPARIN 25,000 UNITS/500ML PMX 500 ML IV SCH (05:28)
[2018-12-23 05:42] LABS: MD YES
[2018-12-23 06:11] LABS: ANISOCYTOSIS 1+; BAND#(MANUAL) 2.83 x10^3/uL; BANDS%(MANUAL) 19 % (0-7); LYMPH#(MANUAL) 1.04 x10^3/uL (1-3.4); LYMPHS% (MANUAL) 7 % (22-44); METAMYELOCYTES# (MANUAL) 2.38 x10^3/uL (0-0); METAMYELOCYTES% (MANUAL) 16 % (0-1); MONOS#(MANUAL) 1.34 x10^3/uL (0.3-2.7); MONOS% (MANUAL) 9 % (2-9); MYELOCYTES% (MANUAL) 4 % (0-0); SEG#(MANUAL) 6.71 x10^3/uL (1.8-6.8); SEGS% (MANUAL) 45 % (42-75)
[2018-12-23 06:12] LABS: <PLATELET ESTIMATE> ADEQUATE; <PLT MORPHOLOGY> NORMAL PLT MORPH; POLYCHROMASIA 1+
[2018-12-23 06:13] LABS: TOXIC GRAN 2+
[2018-12-23] MEDS: ALLOPURINOL 300 MG TABLET PO SCH (09:00)
[2018-12-23] MEDS: DOCUSATE 100 MG CAPSULE PO SCH ×2 (09:00→20:29)
[2018-12-23] MEDS: TAMSULOSIN 0.4 MG CAP.ER.24H PO SCH (09:01)
[2018-12-23] MEDS: POLYETHYLENE GLYCOL 17 GM PACKET PO SCH (09:01)
[2018-12-23] MEDS: CEFTRIAXONE PMX 2GM/50ML 50 ML IV SCH (09:01)
[2018-12-23 09:02] VITALS: BP 104/69
[2018-12-23] MEDS: METHOCARBAMOL 750 MG TABLET PO PRN ×2 (09:32→17:49)
[2018-12-23 14:35] VITALS: BP 113/73
[2018-12-23] MEDS: ENOXAPARIN 80 MG/0.8 ML SQ SCH (15:43)
[2018-12-23 19:08] VITALS: BP 116/71
[2018-12-24 01:15] VITALS: BP 116/69
[2018-12-24] MEDS: DIAZEPAM 2 MG TABLET PO PRN ×2 (03:42→14:59)
[2018-12-24] MEDS: OMEPRAZOLE 20 MG CAPSULE.DR PO SCH (05:32)
[2018-12-24 06:04] LABS: MEAN CORPUSCULAR HEMOGLOBIN 30.3 pg (27.5-34.5); MEAN CORPUSCULAR HGB CONC 34.6 g/dL (33.2-36.2); MEAN CORPUSCULAR VOLUME 87.7 fL (81-97); PLATELET COUNT 295 x10^3/uL (130-400); RED BLOOD COUNT 2.56 x10^6/uL (4.38-5.82); RED CELL DISTRIBUTION WIDTH 15.6 % (9.4-14.8)
[2018-12-24 06:10] LABS: ANION GAP 7 mmol/L (5-15); CALCIUM 7.9 mg/dL (8.5-10.1); CHLORIDE 105 mmol/L (98-107); CREATININE 0.52 mg/dL (0.7-1.3)
[2018-12-24 06:54] LABS: MD YES
[2018-12-24 06:57] LABS: BASOS#(MANUAL) 0.14 x10^3/uL (0-0.1); BASOS% (MANUAL) 1 % (0-1); LYMPHS% (MANUAL) 8 % (22-44); METAMYELOCYTES% (MANUAL) 8 % (0-1); MYELOCYTES# (MANUAL) 0.69 x10^3/uL (0-0); MYELOCYTES% (MANUAL) 5 % (0-0)
[2018-12-24 06:58] LABS: BANDS%(MANUAL) 8 % (0-7); MONOS#(MANUAL) 1.38 x10^3/uL (0.3-2.7); MONOS% (MANUAL) 10 % (2-9); SEG#(MANUAL) 8.28 x10^3/uL (1.8-6.8); SEGS% (MANUAL) 60 % (42-75); TOXIC GRAN 1+
[2018-12-24 06:59] LABS: <PLATELET ESTIMATE> ADEQUATE; <PLT MORPHOLOGY> NORMAL PLT MORPH; ANISOCYTOSIS 1+; POLYCHROMASIA 1+
[2018-12-24] MEDS: POLYETHYLENE GLYCOL 17 GM PACKET PO SCH (08:00)
[2018-12-24] MEDS: DOCUSATE 100 MG CAPSULE PO SCH ×2 (08:00→21:06)
[2018-12-24] MEDS: TAMSULOSIN 0.4 MG CAP.ER.24H PO SCH (08:00)
[2018-12-24] MEDS: ALLOPURINOL 300 MG TABLET PO SCH (08:00)
[2018-12-24] MEDS: METHOCARBAMOL 750 MG TABLET PO PRN ×2 (08:00→16:57)
[2018-12-24] MEDS: CEFTRIAXONE PMX 2GM/50ML 50 ML IV SCH (08:01)
[2018-12-24] MEDS: ENOXAPARIN 80 MG/0.8 ML SQ SCH ×2 (08:08→21:09)
[2018-12-24 08:21] VITALS: BP 96/63
[2018-12-24 15:01] VITALS: BP 101/63
[2018-12-24 20:30] VITALS: BP 106/71
[2018-12-24] MEDS: LORazepam 1MG TABLET PO PRN (21:06)
[2018-12-24] MEDS: HYDROmorphone PCA 30 MG/30 ML IV PRN (21:22)
[2018-12-25 02:59] VITALS: BP 108/66
[2018-12-25] MEDS: DIAZEPAM 2 MG TABLET PO PRN ×3 (03:03→20:24)
[2018-12-25] MEDS: OMEPRAZOLE 20 MG CAPSULE.DR PO SCH (06:06)
[2018-12-25] MEDS: METHOCARBAMOL 750 MG TABLET PO PRN ×2 (06:32→14:32)
[2018-12-25 06:47] VITALS: BP 95/62
[2018-12-25 06:47] LABS: ALBUMIN 2.1 g/dL (3.4-5.0); ANION GAP 5 mmol/L (5-15); CHLORIDE 107 mmol/L (98-107); CREATININE 0.52 mg/dL (0.7-1.3); MEAN CORPUSCULAR HEMOGLOBIN 30.2 pg (27.5-34.5); MEAN CORPUSCULAR HGB CONC 34.2 g/dL (33.2-36.2); MEAN CORPUSCULAR VOLUME 88.2 fL (81-97); RED BLOOD COUNT 2.52 x10^6/uL (4.38-5.82); RED CELL DISTRIBUTION WIDTH 15.6 % (9.4-14.8)
[2018-12-25 06:50] LABS: ALANINE AMINOTRANSFERASE 16 U/L (12-78); ALKALINE PHOSPHATASE 294 U/L (45-117); BILIRUBIN,TOTAL 0.6 mg/dL (0.2-1.0); TOTAL PROTEIN 6.1 g/dL (6.4-8.2)
[2018-12-25 07:04] VITALS: BP 101/69
[2018-12-25 07:57] LABS: MD YES
[2018-12-25 07:59] LABS: BANDS%(MANUAL) 8 % (0-7); LYMPH#(MANUAL) 1.38 x10^3/uL (1-3.4); LYMPHS% (MANUAL) 10 % (22-44); METAMYELOCYTES# (MANUAL) 0.83 x10^3/uL (0-0); METAMYELOCYTES% (MANUAL) 6 % (0-1); MONOS#(MANUAL) 0.97 x10^3/uL (0.3-2.7); MONOS% (MANUAL) 7 % (2-9); MYELOCYTES% (MANUAL) 8 % (0-0); NRBC % (MANUAL) 1 % (0-1); SEG#(MANUAL) 8.42 x10^3/uL (1.8-6.8); SEGS% (MANUAL) 61 % (42-75)
[2018-12-25 08:00] LABS: <PLT MORPHOLOGY> NORMAL PLT MORPH; ANISOCYTOSIS 1+; POLYCHROMASIA 1+; TOXIC GRAN 1+
[2018-12-25 08:01] LABS: MEAN PLATELET VOLUME 6.9 fL (7.4-10.4); PLATELET COUNT 427 x10^3/uL (130-400)
[2018-12-25 08:02] LABS: <PLATELET ESTIMATE> INCREASED
[2018-12-25] MEDS: ENOXAPARIN 80 MG/0.8 ML SQ SCH ×2 (08:20→20:19)
[2018-12-25] MEDS: ALLOPURINOL 300 MG TABLET PO SCH (08:20)
[2018-12-25] MEDS: POLYETHYLENE GLYCOL 17 GM PACKET PO SCH (08:20)
[2018-12-25] MEDS: DOCUSATE 100 MG CAPSULE PO SCH ×2 (08:20→20:19)
[2018-12-25] MEDS: CEFTRIAXONE PMX 2GM/50ML 50 ML IV SCH (08:20)
[2018-12-25] MEDS: TAMSULOSIN 0.4 MG CAP.ER.24H PO SCH (08:20)
[2018-12-25 12:22] VITALS: BP 131/83
[2018-12-25] MEDS ORDERED: ERGOCALCIFEROL 50,000 UNIT CAPSULE ONE (13:25)
[2018-12-25] MEDS: ERGOCALCIFEROL 50,000 UNIT CAPSULE PO SCH (13:51)
[2018-12-25 19:47] VITALS: BP 101/61
[2018-12-26 01:14] VITALS: BP 100/61
[2018-12-26] MEDS: LORazepam 1MG TABLET PO PRN (01:37)
[2018-12-26 04:57] LABS: MEAN CORPUSCULAR HEMOGLOBIN 29.2 pg (27.5-34.5); MEAN CORPUSCULAR VOLUME 88.6 fL (81-97); PLATELET COUNT 542 x10^3/uL (130-400); RED BLOOD COUNT 2.45 x10^6/uL (4.38-5.82); RED CELL DISTRIBUTION WIDTH 15.6 % (9.4-14.8)
[2018-12-26 05:44] LABS: MD YES
[2018-12-26 05:49] LABS: <PLATELET ESTIMATE> INCREASED; <PLT MORPHOLOGY> NORMAL PLT MORPH; ANISOCYTOSIS 1+; BAND#(MANUAL) 1.02 x10^3/uL; BANDS%(MANUAL) 9 % (0-7); LYMPH#(MANUAL) 1.58 x10^3/uL (1-3.4); LYMPHS% (MANUAL) 14 % (22-44); METAMYELOCYTES# (MANUAL) 1.02 x10^3/uL (0-0); METAMYELOCYTES% (MANUAL) 9 % (0-1); MONOS#(MANUAL) 0.68 x10^3/uL (0.3-2.7); MONOS% (MANUAL) 6 % (2-9); MYELOCYTES# (MANUAL) 0.45 x10^3/uL (0-0); MYELOCYTES% (MANUAL) 4 % (0-0); POLYCHROMASIA 1+; SEG#(MANUAL) 6.55 x10^3/uL (1.8-6.8); SEGS% (MANUAL) 58 % (42-75)
[2018-12-26] MEDS: OMEPRAZOLE 20 MG CAPSULE.DR PO SCH (06:08)
[2018-12-26 07:32] VITALS: BP 95/54
[2018-12-26] MEDS: DOCUSATE 100 MG CAPSULE PO SCH ×2 (09:31→22:36)
[2018-12-26] MEDS: POLYETHYLENE GLYCOL 17 GM PACKET PO SCH (09:31)
[2018-12-26] MEDS: TAMSULOSIN 0.4 MG CAP.ER.24H PO SCH (09:31)
[2018-12-26] MEDS: ALLOPURINOL 300 MG TABLET PO SCH (09:31)
[2018-12-26] MEDS: ENOXAPARIN 80 MG/0.8 ML SQ SCH ×2 (09:35→22:37)
[2018-12-26] MEDS: CEFTRIAXONE PMX 2GM/50ML 50 ML IV SCH (09:35)
[2018-12-26] MEDS: DIAZEPAM 2 MG TABLET PO PRN ×2 (11:00→19:42)
[2018-12-26] MEDS ORDERED: FOSAPREPITANT 150 MG in SODIUM CHLORIDE 0.9% 145 ML IV ONE (12:30)
[2018-12-26] MEDS: SODIUM CHLORIDE 0.9% IV SCH ×3 (13:02→17:56)
[2018-12-26] MEDS: POTASSIUM CHLORIDE IV SCH (13:02)
[2018-12-26] MEDS: ONDANSETRON 16 MG, DEXAMETHASONE 10 MG in SODIUM CHLORIDE 0.9% 50 ML IVPB SCH (13:02)
[2018-12-26] MEDS: MAGNESIUM SULFATE IV SCH (13:02)
[2018-12-26 13:50] VITALS: BP 92/52
[2018-12-26] MEDS: CISPLATIN 39 MG in SODIUM CHLORIDE 0.9% 250 ML IV SCH (14:28)
[2018-12-26] MEDS ORDERED: LORAZEPAM 2 MG/1 ML IV PRN (15:00)
[2018-12-26] MEDS ORDERED: PROCHLORPERAZINE 10MG TABLET PO PRN (15:00)
[2018-12-26] MEDS ORDERED: SODIUM CHLORIDE 0.9% IVPB ONE (16:00)
[2018-12-26] MEDS ORDERED: MESNA IVPB ONE (16:00)
[2018-12-26] MEDS: ETOPOSIDE IV SCH (16:21)
[2018-12-26] MEDS: CYCLOBENZAPRINE 10 MG TABLET PO PRN (16:47)
[2018-12-26 16:56] LABS: MICROSCOPIC INDICATED
[2018-12-26] MEDS: IFOSFAMIDE IV SCH (17:56)
[2018-12-26] MEDS: MESNA IVPB SCH (19:30)
[2018-12-26] MEDS: SODIUM CHLORIDE 0.9% IVPB SCH (19:30)
[2018-12-26 20:02] VITALS: BP 98/57
[2018-12-26] MEDS: DRONABINOL 5 MG CAPSULE PO SCH (22:36)
[2018-12-27] MEDS: POTASSIUM CHLORIDE IV SCH (00:18)
[2018-12-27] MEDS: MAGNESIUM SULFATE IV SCH (00:18)
[2018-12-27] MEDS: SODIUM CHLORIDE 0.9% IV SCH ×3 (00:18→20:10)
[2018-12-27 01:16] VITALS: BP 102/62
[2018-12-27] MEDS: OMEPRAZOLE 20 MG CAPSULE.DR PO SCH (06:28)
[2018-12-27] MEDS: DIAZEPAM 2 MG TABLET PO PRN (06:28)
[2018-12-27 06:33] LABS: ANION GAP 7 mmol/L (5-15); CHLORIDE 110 mmol/L (98-107); CREATININE 0.42 mg/dL (0.7-1.3); MEAN CORPUSCULAR HEMOGLOBIN 29.7 pg (27.5-34.5); MEAN CORPUSCULAR HGB CONC 33.5 g/dL (33.2-36.2); MEAN CORPUSCULAR VOLUME 88.6 fL (81-97); MEAN PLATELET VOLUME 7.2 fL (7.4-10.4); PLATELET COUNT 642 x10^3/uL (130-400)
[2018-12-27 07:15] LABS: MD YES
[2018-12-27 07:17] LABS: BAND#(MANUAL) 1.11 x10^3/uL; BANDS%(MANUAL) 10 % (0-7); LYMPHS% (MANUAL) 9 % (22-44); METAMYELOCYTES# (MANUAL) 0.33 x10^3/uL (0-0); METAMYELOCYTES% (MANUAL) 3 % (0-1); MONOS#(MANUAL) 0.22 x10^3/uL (0.3-2.7); MONOS% (MANUAL) 2 % (2-9); MYELOCYTES# (MANUAL) 0.33 x10^3/uL (0-0); MYELOCYTES% (MANUAL) 3 % (0-0); NRBC % (MANUAL) 1 % (0-1); SEGS% (MANUAL) 73 % (42-75)
[2018-12-27 07:18] LABS: <PLATELET ESTIMATE> INCREASED; <PLT MORPHOLOGY> NORMAL PLT MORPH; ANISOCYTOSIS 1+; POLYCHROMASIA 1+; TOXIC GRAN 1+
[2018-12-27 07:41] VITALS: BP 99/62
[2018-12-27] MEDS: CEFTRIAXONE PMX 2GM/50ML 50 ML IV SCH (09:58)
[2018-12-27] MEDS: TAMSULOSIN 0.4 MG CAP.ER.24H PO SCH (09:58)
[2018-12-27] MEDS: ENOXAPARIN 60 MG/0.6 ML SQ SCH ×2 (09:59→21:44)
[2018-12-27] MEDS: POLYETHYLENE GLYCOL 17 GM PACKET PO SCH (09:59)
[2018-12-27] MEDS: DOCUSATE 100 MG CAPSULE PO SCH ×2 (09:59→21:41)
[2018-12-27] MEDS: DRONABINOL 5 MG CAPSULE PO SCH ×2 (09:59→21:41)
[2018-12-27] MEDS: CYCLOBENZAPRINE 10 MG TABLET PO PRN (13:46)
[2018-12-27] MEDS: POTASSIUM CHLORIDE 20 MEQ in SODIUM CHLORIDE 0.9% 1,000 ML IV SCH (14:03)
[2018-12-27] MEDS: ONDANSETRON 16 MG, DEXAMETHASONE 10 MG in SODIUM CHLORIDE 0.9% 50 ML IVPB SCH (14:04)
[2018-12-27 15:06] VITALS: BP 94/55
[2018-12-27] MEDS: CISPLATIN 39 MG in SODIUM CHLORIDE 0.9% 250 ML IV SCH (15:35)
[2018-12-27 15:37] LABS: MICROSCOPIC INDICATED
[2018-12-27 15:53] LABS: CULTURE INDICATED? YES
[2018-12-27] MEDS: ETOPOSIDE IV SCH (18:03)
[2018-12-27] MEDS: IFOSFAMIDE IV SCH (20:10)
[2018-12-27] MEDS: SODIUM CHLORIDE 0.9% IVPB SCH (20:23)
[2018-12-27] MEDS: MESNA IVPB SCH (20:23)
[2018-12-27 20:44] VITALS: BP 104/67
[2018-12-27] MEDS: LORazepam 1MG TABLET PO PRN (23:07)
[2018-12-28] VITALS (7 sets, daily range): BP systolic 98–105; BP diastolic 58–66
[2018-12-28] MEDS: POTASSIUM CHLORIDE 20 MEQ in SODIUM CHLORIDE 0.9% 1,000 ML IV SCH ×3 (00:10→22:05)
[2018-12-28] MEDS: OMEPRAZOLE 20 MG CAPSULE.DR PO SCH (06:04)
[2018-12-28 06:25] LABS: MEAN CORPUSCULAR HEMOGLOBIN 29.8 pg (27.5-34.5); MEAN CORPUSCULAR HGB CONC 33.7 g/dL (33.2-36.2); MEAN CORPUSCULAR VOLUME 88.3 fL (81-97); PLATELET COUNT 674 x10^3/uL (130-400); RED BLOOD COUNT 2.33 x10^6/uL (4.38-5.82); RED CELL DISTRIBUTION WIDTH 16.4 % (9.4-14.8)
[2018-12-28] MEDS ORDERED: ACETAMINOPHEN 325 MG TABLET PO ONE (07:00)
[2018-12-28] MEDS ORDERED: DIPHENHYDRAMINE 50 MG CAPSULE PO SCH (07:00)
[2018-12-28 07:52] LABS: MD YES
[2018-12-28 07:55] LABS: BAND#(MANUAL) 0.13 x10^3/uL; BANDS%(MANUAL) 2 % (0-7); METAMYELOCYTES# (MANUAL) 0.13 x10^3/uL (0-0); METAMYELOCYTES% (MANUAL) 2 % (0-1); MONOS#(MANUAL) 0.38 x10^3/uL (0.3-2.7); MONOS% (MANUAL) 6 % (2-9); MYELOCYTES# (MANUAL) 0.06 x10^3/uL (0-0); MYELOCYTES% (MANUAL) 1 % (0-0)
[2018-12-28 07:56] LABS: <PLATELET ESTIMATE> INCREASED; <PLT MORPHOLOGY> NORMAL PLT MORPH; ANISOCYTOSIS 1+; LYMPH#(MANUAL) 1.15 x10^3/uL (1-3.4); LYMPHS% (MANUAL) 18 % (22-44); POLYCHROMASIA 1+; SEG#(MANUAL) 4.54 x10^3/uL (1.8-6.8); SEGS% (MANUAL) 71 % (42-75)
[2018-12-28] MEDS: POLYETHYLENE GLYCOL 17 GM PACKET PO SCH (08:25)
[2018-12-28] MEDS: DOCUSATE 100 MG CAPSULE PO SCH ×2 (08:26→20:53)
[2018-12-28] MEDS: TAMSULOSIN 0.4 MG CAP.ER.24H PO SCH (08:26)
[2018-12-28] MEDS: CEFTRIAXONE PMX 2GM/50ML 50 ML IV SCH (08:26)
[2018-12-28] MEDS: DRONABINOL 5 MG CAPSULE PO SCH ×2 (08:26→20:53)
[2018-12-28] MEDS: ENOXAPARIN 60 MG/0.6 ML SQ SCH ×2 (08:30→20:53)
[2018-12-28] MEDS: ONDANSETRON 16 MG, DEXAMETHASONE 10 MG in SODIUM CHLORIDE 0.9% 50 ML IVPB SCH (12:16)
[2018-12-28] MEDS: CYCLOBENZAPRINE 10 MG TABLET PO PRN (13:50)
[2018-12-28] MEDS: CISPLATIN 39 MG in SODIUM CHLORIDE 0.9% 250 ML IV SCH (14:04)
[2018-12-28] MEDS: ETOPOSIDE IV SCH (16:19)
[2018-12-28] MEDS: SODIUM CHLORIDE 0.9% IV SCH ×2 (16:19→18:05)
[2018-12-28] MEDS: IFOSFAMIDE IV SCH (18:05)
[2018-12-28] MEDS: DIAZEPAM 2 MG TABLET PO PRN (18:46)
[2018-12-28] MEDS ORDERED: BISACODYL 10 MG SUPP PR PRN (19:30)
[2018-12-28] MEDS: SODIUM CHLORIDE 0.9% IVPB SCH (19:47)
[2018-12-28] MEDS: MESNA IVPB SCH (19:47)
[2018-12-28] MEDS: LORazepam 1MG TABLET PO PRN (22:04)
[2018-12-29] MEDS: HYDROmorphone PCA 30 MG/30 ML IV PRN (01:25)
[2018-12-29 02:44] VITALS: BP 100/66
[2018-12-29] MEDS: OMEPRAZOLE 20 MG CAPSULE.DR PO SCH (04:38)
[2018-12-29] MEDS: CYCLOBENZAPRINE 10 MG TABLET PO PRN ×2 (05:28→11:50)
[2018-12-29 05:31] LABS: ALANINE AMINOTRANSFERASE 25 U/L (12-78); ALBUMIN 1.9 g/dL (3.4-5.0); ANION GAP 6 mmol/L (5-15); CALCIUM 7.5 mg/dL (8.5-10.1); CHLORIDE 111 mmol/L (98-107)
[2018-12-29 05:34] LABS: ALKALINE PHOSPHATASE 267 U/L (45-117); BILIRUBIN,TOTAL 0.7 mg/dL (0.2-1.0); CREATININE 0.46 mg/dL (0.7-1.3); MEAN CORPUSCULAR HGB CONC 34.3 g/dL (33.2-36.2); MEAN CORPUSCULAR VOLUME 87.4 fL (81-97); MEAN PLATELET VOLUME 6.9 fL (7.4-10.4); PLATELET COUNT 706 x10^3/uL (130-400); RED BLOOD COUNT 2.56 x10^6/uL (4.38-5.82); RED CELL DISTRIBUTION WIDTH 16.3 % (9.4-14.8); TOTAL PROTEIN 5.4 g/dL (6.4-8.2)
[2018-12-29 05:53] LABS: MD YES
[2018-12-29 05:55] LABS: <PLATELET ESTIMATE> INCREASED; <PLT MORPHOLOGY> NORMAL PLT MORPH; ANISOCYTOSIS 1+; LYMPH#(MANUAL) 1.43 x10^3/uL (1-3.4); LYMPHS% (MANUAL) 27 % (22-44); MONOS#(MANUAL) 0.27 x10^3/uL (0.3-2.7); MONOS% (MANUAL) 5 % (2-9); POLYCHROMASIA 1+; SEGS% (MANUAL) 68 % (42-75)
[2018-12-29 06:47] VITALS: BP 98/62
[2018-12-29] MEDS: POLYETHYLENE GLYCOL 17 GM PACKET PO SCH (09:00)
[2018-12-29] MEDS: MAGNESIUM HYDROXIDE 8%, 30ML UDC PO PRN (09:05)
[2018-12-29] MEDS: DRONABINOL 5 MG CAPSULE PO SCH ×2 (09:06→20:47)
[2018-12-29] MEDS: ENOXAPARIN 60 MG/0.6 ML SQ SCH ×2 (09:06→20:48)
[2018-12-29] MEDS: DOCUSATE 100 MG CAPSULE PO SCH ×2 (09:06→20:47)
[2018-12-29] MEDS: TAMSULOSIN 0.4 MG CAP.ER.24H PO SCH (09:06)
[2018-12-29] MEDS: CEFTRIAXONE PMX 2GM/50ML 50 ML IV SCH (09:08)
[2018-12-29 10:44] VITALS: BP 98/60
[2018-12-29 11:04] LABS: MICROSCOPIC NOT IND
[2018-12-29 11:13] LABS: CULTURE INDICATED? NO
[2018-12-29] MEDS: POTASSIUM CHLORIDE 20 MEQ in SODIUM CHLORIDE 0.9% 1,000 ML IV SCH ×2 (12:00→20:48)
[2018-12-29] MEDS: ONDANSETRON 16 MG, DEXAMETHASONE 10 MG in SODIUM CHLORIDE 0.9% 50 ML IVPB SCH (12:15)
[2018-12-29] MEDS: CISPLATIN 39 MG in SODIUM CHLORIDE 0.9% 250 ML IV SCH (13:19)
[2018-12-29 14:53] VITALS: BP 97/60
[2018-12-29] MEDS: SODIUM CHLORIDE 0.9% IV SCH ×2 (15:55→17:27)
[2018-12-29] MEDS: ETOPOSIDE IV SCH (15:55)
[2018-12-29] MEDS: IFOSFAMIDE IV SCH (17:27)
[2018-12-29] MEDS: DIAZEPAM 2 MG TABLET PO PRN (18:26)
[2018-12-29] MEDS: ONDANSETRON 2MG/ML, 2ML IVPush PRN (20:39)
[2018-12-29] MEDS: SODIUM CHLORIDE 0.9% IVPB SCH (20:48)
[2018-12-29] MEDS: MESNA IVPB SCH (20:48)
[2018-12-29] MEDS: LORazepam 1MG TABLET PO PRN (21:20)
[2018-12-29 21:56] VITALS: BP 103/65
[2018-12-30 03:59] VITALS: BP 98/65
[2018-12-30] MEDS: LORazepam 1MG TABLET PO PRN ×2 (05:58→19:24)
[2018-12-30] MEDS: ONDANSETRON 2MG/ML, 2ML IVPush PRN ×3 (05:58→19:24)
[2018-12-30] MEDS: OMEPRAZOLE 20 MG CAPSULE.DR PO SCH (05:58)
[2018-12-30] MEDS: POTASSIUM CHLORIDE 20 MEQ in SODIUM CHLORIDE 0.9% 1,000 ML IV SCH ×2 (06:08→16:46)
[2018-12-30 06:25] LABS: BASOPHILS # (AUTO) 0.02 x10^3/uL (0-0.1); BASOPHILS % (AUTO) 0 % (0-1); EOSINOPHILS % (AUTO) 0 % (1-7); LYMPHOCYTES % (AUTO) 12 % (22-44); MD NO; MEAN CORPUSCULAR HGB CONC 34.1 g/dL (33.2-36.2); MEAN CORPUSCULAR VOLUME 87.8 fL (81-97); MEAN PLATELET VOLUME 6.7 fL (7.4-10.4); MONOCYTES # (AUTO) 0.09 x10^3/uL (0.2-0.8); MONOCYTES % (AUTO) 2 % (2-9); NEUTROPHILS % (AUTO) 86 % (42-75); PLATELET COUNT 794 x10^3/uL (130-400); RED BLOOD COUNT 2.84 x10^6/uL (4.38-5.82); RED CELL DISTRIBUTION WIDTH 15.6 % (9.4-14.8)
[2018-12-30 06:36] LABS: ALANINE AMINOTRANSFERASE 24 U/L (12-78); ALBUMIN 2.3 g/dL (3.4-5.0); ANION GAP 6 mmol/L (5-15); CALCIUM 8.2 mg/dL (8.5-10.1); CHLORIDE 110 mmol/L (98-107); CREATININE 0.59 mg/dL (0.7-1.3)
[2018-12-30 06:37] LABS: MICROSCOPIC INDICATED
[2018-12-30 06:39] LABS: ALKALINE PHOSPHATASE 314 U/L (45-117); BILIRUBIN,TOTAL 0.5 mg/dL (0.2-1.0); TOTAL PROTEIN 6.1 g/dL (6.4-8.2)
[2018-12-30 06:43] LABS: CULTURE INDICATED? NO
[2018-12-30 07:33] VITALS: BP 102/64
[2018-12-30] MEDS: DOCUSATE 100 MG CAPSULE PO SCH ×2 (09:17→20:37)
[2018-12-30] MEDS: TAMSULOSIN 0.4 MG CAP.ER.24H PO SCH (09:17)
[2018-12-30] MEDS: DRONABINOL 5 MG CAPSULE PO SCH ×2 (09:17→20:37)
[2018-12-30] MEDS: POLYETHYLENE GLYCOL 17 GM PACKET PO SCH (09:17)
[2018-12-30] MEDS: ENOXAPARIN 60 MG/0.6 ML SQ SCH ×2 (09:17→20:39)
[2018-12-30] MEDS: ONDANSETRON 16 MG, DEXAMETHASONE 10 MG in SODIUM CHLORIDE 0.9% 50 ML IVPB SCH (12:22)
[2018-12-30] MEDS: CISPLATIN 39 MG in SODIUM CHLORIDE 0.9% 250 ML IV SCH (13:13)
[2018-12-30] MEDS: OXYcodone IR 5MG TABLET PO PRN ×2 (13:21→22:43)
[2018-12-30 13:50] VITALS: BP 98/59
[2018-12-30] MEDS: CYCLOBENZAPRINE 10 MG TABLET PO PRN (14:19)
[2018-12-30] MEDS: SODIUM CHLORIDE 0.9% IV SCH ×2 (15:38→17:00)
[2018-12-30] MEDS: ETOPOSIDE IV SCH (15:38)
[2018-12-30] MEDS: PROCHLORPERAZINE 5 MG/ML, 2ML IV PRN ×2 (16:46→22:43)
[2018-12-30] MEDS: IFOSFAMIDE IV SCH (17:00)
[2018-12-30] MEDS ORDERED: HYDROmorphone 2 MG/ML, 1ML ONE (17:08)
[2018-12-30] MEDS: HYDROmorphone 1 MG/ML, 1ML INJ IV PRN (17:12)
[2018-12-30] MEDS: SODIUM CHLORIDE 0.9% IVPB SCH (19:39)
[2018-12-30] MEDS: MESNA IVPB SCH (19:39)
[2018-12-30 19:43] VITALS: BP 97/63
[2018-12-31 01:52] VITALS: BP 102/68
[2018-12-31] MEDS: LORazepam 1MG TABLET PO PRN ×3 (02:00→22:12)
[2018-12-31] MEDS: POTASSIUM CHLORIDE 20 MEQ in SODIUM CHLORIDE 0.9% 1,000 ML IV SCH ×3 (02:00→23:19)
[2018-12-31] MEDS: ONDANSETRON 2MG/ML, 2ML IVPush PRN ×2 (02:55→18:38)
[2018-12-31 05:18] LABS: MEAN CORPUSCULAR HEMOGLOBIN 30.1 pg (27.5-34.5); MEAN CORPUSCULAR HGB CONC 34.3 g/dL (33.2-36.2); MEAN CORPUSCULAR VOLUME 87.8 fL (81-97); MEAN PLATELET VOLUME 6.6 fL (7.4-10.4); PLATELET COUNT 815 x10^3/uL (130-400); RED BLOOD COUNT 2.82 x10^6/uL (4.38-5.82); RED CELL DISTRIBUTION WIDTH 15.4 % (9.4-14.8)
[2018-12-31 05:31] LABS: ALANINE AMINOTRANSFERASE 22 U/L (12-78); ALBUMIN 2.4 g/dL (3.4-5.0); ANION GAP 6 mmol/L (5-15); CALCIUM 8.2 mg/dL (8.5-10.1); CHLORIDE 111 mmol/L (98-107); CREATININE 0.59 mg/dL (0.7-1.3)
[2018-12-31 05:34] LABS: ALKALINE PHOSPHATASE 317 U/L (45-117); BILIRUBIN,TOTAL 0.4 mg/dL (0.2-1.0); TOTAL PROTEIN 6.2 g/dL (6.4-8.2)
[2018-12-31 06:16] LABS: BASOPHILS # (AUTO) 0.26 x10^3/uL (0-0.1); BASOPHILS % (AUTO) 4 % (0-1); EOSINOPHILS % (AUTO) 0 % (1-7); LYMPHOCYTES # (AUTO) 0.48 x10^3/uL (1-3.4); LYMPHOCYTES % (AUTO) 7 % (22-44); MD SCAN; MONOCYTES # (AUTO) 0.08 x10^3/uL (0.2-0.8); MONOCYTES % (AUTO) 1 % (2-9); NEUTROPHILS # (AUTO) 6.32 x10^3/uL (1.8-6.8); NEUTROPHILS % (AUTO) 89 % (42-75)
[2018-12-31] MEDS ORDERED: HYDROmorphone 2 MG/ML, 1ML ONE ×5 (06:25→22:10)
[2018-12-31] MEDS: OMEPRAZOLE 20 MG CAPSULE.DR PO SCH (06:30)
[2018-12-31] MEDS: HYDROmorphone 1 MG/ML, 1ML INJ IV PRN ×5 (06:30→22:12)
[2018-12-31 07:26] VITALS: BP 107/63
[2018-12-31] MEDS: DRONABINOL 5 MG CAPSULE PO SCH ×2 (08:32→21:10)
[2018-12-31] MEDS: ENOXAPARIN 60 MG/0.6 ML SQ SCH ×2 (08:33→21:10)
[2018-12-31] MEDS: POLYETHYLENE GLYCOL 17 GM PACKET PO SCH (08:33)
[2018-12-31] MEDS: TAMSULOSIN 0.4 MG CAP.ER.24H PO SCH (08:33)
[2018-12-31] MEDS: DOCUSATE 100 MG CAPSULE PO SCH ×2 (08:33→21:10)
[2018-12-31 12:32] VITALS: BP 96/61
[2018-12-31] MEDS: PROCHLORPERAZINE 5 MG/ML, 2ML IV PRN ×2 (13:31→21:48)
[2018-12-31 16:45] LABS: MICROSCOPIC AUTO
[2018-12-31 16:46] LABS: CULTURE INDICATED? NO
[2018-12-31] MEDS: HYDROcodone/APAP 5/325 TABLET PO PRN (17:27)
[2018-12-31] MEDS ORDERED: TBO-FILGRASTIM 480 MCG/0.8 ML SQ SCH (18:00)
[2018-12-31 20:40] VITALS: BP 96/62
[2019-01-01 01:04] VITALS: BP 95/65
[2019-01-01] MEDS ORDERED: HYDROmorphone 2 MG/ML, 1ML ONE ×3 (04:25→17:51)
[2019-01-01] MEDS: OMEPRAZOLE 20 MG CAPSULE.DR PO SCH (04:28)
[2019-01-01] MEDS: LORazepam 1MG TABLET PO PRN (04:28)
[2019-01-01] MEDS: HYDROmorphone 1 MG/ML, 1ML INJ IV PRN ×3 (04:28→17:55)
[2019-01-01 04:54] LABS: MEAN CORPUSCULAR HEMOGLOBIN 30.1 pg (27.5-34.5); MEAN CORPUSCULAR HGB CONC 34.4 g/dL (33.2-36.2); MEAN CORPUSCULAR VOLUME 87.7 fL (81-97); MEAN PLATELET VOLUME 6.6 fL (7.4-10.4); PLATELET COUNT 798 x10^3/uL (130-400); RED BLOOD COUNT 2.76 x10^6/uL (4.38-5.82); RED CELL DISTRIBUTION WIDTH 15.7 % (9.4-14.8)
[2019-01-01 04:56] LABS: ANION GAP 4 mmol/L (5-15); CALCIUM 8.3 mg/dL (8.5-10.1); CHLORIDE 110 mmol/L (98-107); CREATININE 0.64 mg/dL (0.7-1.3)
[2019-01-01 05:42] LABS: MD YES
[2019-01-01 05:44] LABS: ANISOCYTOSIS 1+; BAND#(MANUAL) 0.93 x10^3/uL; BANDS%(MANUAL) 3 % (0-7); LYMPH#(MANUAL) 0.31 x10^3/uL (1-3.4); LYMPHS% (MANUAL) 1 % (22-44); SEG#(MANUAL) 29.86 x10^3/uL (1.8-6.8); SEGS% (MANUAL) 96 % (42-75)
[2019-01-01 05:46] LABS: <PLATELET ESTIMATE> INCREASED; <PLT MORPHOLOGY> NORMAL PLT MORPH
[2019-01-01 07:15] VITALS: BP 97/64
[2019-01-01] MEDS: DOCUSATE 100 MG CAPSULE PO SCH ×2 (08:53→21:19)
[2019-01-01] MEDS: TAMSULOSIN 0.4 MG CAP.ER.24H PO SCH (08:53)
[2019-01-01] MEDS: POLYETHYLENE GLYCOL 17 GM PACKET PO SCH (08:53)
[2019-01-01] MEDS: DRONABINOL 5 MG CAPSULE PO SCH ×2 (08:54→21:19)
[2019-01-01] MEDS: ENOXAPARIN 60 MG/0.6 ML SQ SCH ×2 (08:54→21:20)
[2019-01-01] MEDS: MAGNESIUM HYDROXIDE 8%, 30ML UDC PO PRN (08:54)
[2019-01-01] MEDS: POTASSIUM CHLORIDE 20 MEQ in SODIUM CHLORIDE 0.9% 1,000 ML IV SCH (10:08)
[2019-01-01] MEDS: PROCHLORPERAZINE 5 MG/ML, 2ML IV PRN ×2 (11:30→17:55)
[2019-01-01 12:32] VITALS: BP 94/58
[2019-01-01] MEDS: ONDANSETRON 2MG/ML, 2ML IVPush PRN ×2 (12:44→23:33)
[2019-01-01 12:52] VITALS: BP 91/53
[2019-01-01] MEDS: LORazepam 2 MG/ML, 1ML IV PRN ×3 (14:34→23:37)
[2019-01-01 19:43] VITALS: BP 99/64
[2019-01-02 02:17] VITALS: BP 99/60
[2019-01-02] MEDS ORDERED: HYDROmorphone 2 MG/ML, 1ML ONE ×5 (03:46→22:03)
[2019-01-02] MEDS: LORazepam 2 MG/ML, 1ML IV PRN ×2 (03:55→16:22)
[2019-01-02] MEDS: HYDROmorphone 1 MG/ML, 1ML INJ IV PRN ×5 (03:56→22:06)
[2019-01-02 04:25] LABS: MEAN CORPUSCULAR HEMOGLOBIN 29.9 pg (27.5-34.5); MEAN CORPUSCULAR HGB CONC 33.9 g/dL (33.2-36.2); MEAN CORPUSCULAR VOLUME 88.2 fL (81-97); MEAN PLATELET VOLUME 6.7 fL (7.4-10.4); PLATELET COUNT 593 x10^3/uL (130-400); RED BLOOD COUNT 2.54 x10^6/uL (4.38-5.82); RED CELL DISTRIBUTION WIDTH 15.4 % (9.4-14.8)
[2019-01-02 04:33] LABS: ANION GAP 3 mmol/L (5-15); CHLORIDE 112 mmol/L (98-107); CREATININE 0.67 mg/dL (0.7-1.3)
[2019-01-02 04:37] LABS: MD YES
[2019-01-02 04:39] LABS: <PLATELET ESTIMATE> INCREASED; <PLT MORPHOLOGY> NORMAL PLT MORPH; ANISOCYTOSIS 1+; LYMPH#(MANUAL) 0.85 x10^3/uL (1-3.4); LYMPHS% (MANUAL) 8 % (22-44); MONOS#(MANUAL) 0.11 x10^3/uL (0.3-2.7); MONOS% (MANUAL) 1 % (2-9); SEG#(MANUAL) 9.65 x10^3/uL (1.8-6.8); SEGS% (MANUAL) 91 % (42-75)
[2019-01-02] MEDS: OMEPRAZOLE 20 MG CAPSULE.DR PO SCH (06:16)
[2019-01-02 07:10] VITALS: BP 96/61
[2019-01-02] MEDS: ENOXAPARIN 60 MG/0.6 ML SQ SCH ×2 (09:40→20:41)
[2019-01-02] MEDS: DOCUSATE 100 MG CAPSULE PO SCH ×2 (09:40→20:39)
[2019-01-02] MEDS: POLYETHYLENE GLYCOL 17 GM PACKET PO SCH (09:40)
[2019-01-02] MEDS: TAMSULOSIN 0.4 MG CAP.ER.24H PO SCH (09:40)
[2019-01-02] MEDS: DRONABINOL 5 MG CAPSULE PO SCH ×2 (09:40→20:39)
[2019-01-02] MEDS: MAGNESIUM HYDROXIDE 8%, 30ML UDC PO PRN (09:41)
[2019-01-02] MEDS: DIAZEPAM 2 MG TABLET PO PRN (12:13)
[2019-01-02 14:39] VITALS: BP 97/58
[2019-01-02 20:32] VITALS: BP 105/65
[2019-01-02] MEDS: TEMAZEPAM 15 MG CAPSULE PO PRN (22:01)
[2019-01-03] MEDS: DIAZEPAM 2 MG TABLET PO PRN ×2 (01:36→17:43)
[2019-01-03] MEDS ORDERED: HYDROmorphone 2 MG/ML, 1ML ONE ×3 (01:39→11:44)
[2019-01-03] MEDS: HYDROmorphone 1 MG/ML, 1ML INJ IV PRN ×3 (01:41→11:47)
[2019-01-03 02:15] VITALS: BP 94/60
[2019-01-03] MEDS: OMEPRAZOLE 20 MG CAPSULE.DR PO SCH (05:41)
[2019-01-03 06:29] LABS: MEAN CORPUSCULAR HEMOGLOBIN 29.5 pg (27.5-34.5); MEAN CORPUSCULAR HGB CONC 34.3 g/dL (33.2-36.2); PLATELET COUNT 462 x10^3/uL (130-400); RED BLOOD COUNT 2.48 x10^6/uL (4.38-5.82); RED CELL DISTRIBUTION WIDTH 15.1 % (9.4-14.8)
[2019-01-03 06:47] LABS: MD YES
[2019-01-03 06:54] LABS: LYMPHS% (MANUAL) 24 % (22-44); MONOS#(MANUAL) 0.03 x10^3/uL (0.3-2.7); MONOS% (MANUAL) 1 % (2-9); SEG#(MANUAL) 1.88 x10^3/uL (1.8-6.8); SEGS% (MANUAL) 75 % (42-75)
[2019-01-03 06:55] LABS: <PLATELET ESTIMATE> INCREASED; <PLT MORPHOLOGY> NORMAL PLT MORPH; ANISOCYTOSIS 1+
[2019-01-03 08:02] VITALS: BP 99/66
[2019-01-03] MEDS: POLYETHYLENE GLYCOL 17 GM PACKET PO SCH ×2 (09:00→10:22)
[2019-01-03] MEDS: DRONABINOL 5 MG CAPSULE PO SCH ×2 (10:22→20:52)
[2019-01-03] MEDS: TAMSULOSIN 0.4 MG CAP.ER.24H PO SCH (10:22)
[2019-01-03] MEDS: DOCUSATE 100 MG CAPSULE PO SCH ×2 (10:22→20:45)
[2019-01-03] MEDS: ENOXAPARIN 60 MG/0.6 ML SQ SCH ×2 (10:23→20:53)
[2019-01-03] MEDS: METHOCARBAMOL 750 MG TABLET PO PRN (10:23)
[2019-01-03] MEDS: HYDROcodone/APAP 5/325 TABLET PO PRN (10:24)
[2019-01-03] MEDS: ONDANSETRON 2MG/ML, 2ML IVPush PRN (10:25)
[2019-01-03] MEDS: TBO-FILGRASTIM 300 MCG/0.5 ML SQ SCH (11:47)
[2019-01-03 13:45] VITALS: BP 99/60
[2019-01-03] MEDS: OXYcodone/APAP 10/325MG TABLET PO PRN ×3 (14:27→23:52)
[2019-01-03] MEDS: CYCLOBENZAPRINE 10 MG TABLET PO PRN (15:36)
[2019-01-03 19:17] VITALS: BP 95/63
[2019-01-03] MEDS: MIDODRINE 5 MG TABLET PO SCH (20:52)
[2019-01-04 01:53] VITALS: BP 111/71
[2019-01-04] MEDS: OXYcodone/APAP 10/325MG TABLET PO PRN ×2 (04:03→12:40)
[2019-01-04 05:14] LABS: MEAN CORPUSCULAR HEMOGLOBIN 28.8 pg (27.5-34.5); MEAN CORPUSCULAR HGB CONC 33.3 g/dL (33.2-36.2); MEAN CORPUSCULAR VOLUME 86.7 fL (81-97); MEAN PLATELET VOLUME 7.1 fL (7.4-10.4); PLATELET COUNT 345 x10^3/uL (130-400); RED BLOOD COUNT 2.45 x10^6/uL (4.38-5.82); RED CELL DISTRIBUTION WIDTH 14.5 % (9.4-14.8)
[2019-01-04] MEDS: DIAZEPAM 2 MG TABLET PO PRN ×2 (05:20→16:11)
[2019-01-04 05:25] LABS: CALCIUM 8.3 mg/dL (8.5-10.1); CHLORIDE 106 mmol/L (98-107)
[2019-01-04 05:28] LABS: ANION GAP 7 mmol/L (5-15); CREATININE 0.51 mg/dL (0.7-1.3)
[2019-01-04 06:00] LABS: MD YES
[2019-01-04 06:04] LABS: BAND#(MANUAL) 0.01 x10^3/uL; BANDS%(MANUAL) 1 % (0-7); LYMPH#(MANUAL) 0.41 x10^3/uL (1-3.4); LYMPHS% (MANUAL) 34 % (22-44); MONOS#(MANUAL) 0.02 x10^3/uL (0.3-2.7); MONOS% (MANUAL) 2 % (2-9); SEG#(MANUAL) 0.76 x10^3/uL (1.8-6.8); SEGS% (MANUAL) 63 % (42-75)
[2019-01-04 06:05] LABS: <PLATELET ESTIMATE> ADEQUATE; <PLT MORPHOLOGY> NORMAL PLT MORPH; ANISOCYTOSIS 1+
[2019-01-04] MEDS: OMEPRAZOLE 20 MG CAPSULE.DR PO SCH (06:28)
[2019-01-04 07:45] VITALS: BP 94/56
[2019-01-04 08:50] VITALS: BP 90/55
[2019-01-04] MEDS: TBO-FILGRASTIM 300 MCG/0.5 ML SQ SCH (08:54)
[2019-01-04] MEDS: DOCUSATE 100 MG CAPSULE PO SCH ×2 (08:55→21:00)
[2019-01-04] MEDS: ENOXAPARIN 60 MG/0.6 ML SQ SCH ×2 (08:55→22:50)
[2019-01-04] MEDS: POLYETHYLENE GLYCOL 17 GM PACKET PO SCH (08:55)
[2019-01-04] MEDS: MIDODRINE 5 MG TABLET PO SCH ×2 (08:55→22:50)
[2019-01-04] MEDS: TAMSULOSIN 0.4 MG CAP.ER.24H PO SCH (08:55)
[2019-01-04] MEDS: DRONABINOL 5 MG CAPSULE PO SCH ×2 (08:58→22:51)
[2019-01-04] MEDS ORDERED: HYDROmorphone 2 MG/ML, 1ML ONE ×3 (10:07→19:41)
[2019-01-04] MEDS: HYDROmorphone 1 MG/ML, 1ML INJ IV PRN ×3 (10:12→19:53)
[2019-01-04] MEDS ORDERED: POTASSIUM CHLORIDE 20 MEQ TAB.ER.PRT PO ONE (11:30)
[2019-01-04 12:40] LABS: CLOSTRIDIUM DIFFICILE ANTIGEN POSITIVE; CLOSTRIDIUM DIFFICILE TOXIN POSITIVE (Negative)
[2019-01-04 12:57] VITALS: BP 94/61
[2019-01-04] MEDS: metroNIDAZOLE 500 MG TABLET PO SCH ×2 (13:57→22:50)
[2019-01-04] MEDS: SODIUM CHLORIDE 0.9% 1,000 ML IV SCH (15:56)
[2019-01-04 19:45] VITALS: BP 95/54
[2019-01-04] MEDS: HYDROmorphone 2 MG/ML, 1ML IV PRN (23:56)
[2019-01-05] VITALS (12 sets, daily range): BP systolic 92–103; BP diastolic 50–64
[2019-01-05] MEDS: TEMAZEPAM 15 MG CAPSULE PO PRN (00:05)
[2019-01-05] MEDS: SODIUM CHLORIDE 0.9% 1,000 ML IV SCH ×3 (02:13→21:49)
[2019-01-05] MEDS: DIAZEPAM 2 MG TABLET PO PRN ×3 (04:48→21:54)
[2019-01-05 05:46] LABS: MEAN CORPUSCULAR HEMOGLOBIN 29.5 pg (27.5-34.5); MEAN CORPUSCULAR HGB CONC 34.6 g/dL (33.2-36.2); MEAN CORPUSCULAR VOLUME 85.3 fL (81-97); MEAN PLATELET VOLUME 7.2 fL (7.4-10.4); PLATELET COUNT 222 x10^3/uL (130-400); RED BLOOD COUNT 2.01 x10^6/uL (4.38-5.82); RED CELL DISTRIBUTION WIDTH 14.6 % (9.4-14.8)
[2019-01-05 06:09] LABS: MD YES
[2019-01-05 06:12] LABS: BAND#(MANUAL) 0.02 x10^3/uL; BANDS%(MANUAL) 2 % (0-7); SEGS% (MANUAL) 46 % (42-75)
[2019-01-05 06:13] LABS: LYMPH#(MANUAL) 0.43 x10^3/uL (1-3.4); LYMPHS% (MANUAL) 48 % (22-44); MONOS#(MANUAL) 0.04 x10^3/uL (0.3-2.7); MONOS% (MANUAL) 4 % (2-9); SEG#(MANUAL) 0.42 x10^3/uL (1.8-6.8)
[2019-01-05 06:14] LABS: <PLATELET ESTIMATE> ADEQUATE; <PLT MORPHOLOGY> NORMAL PLT MORPH; ANISOCYTOSIS 1+
[2019-01-05] MEDS ORDERED: ACETAMINOPHEN 325 MG TABLET PO ONE (06:30)
[2019-01-05] MEDS ORDERED: DIPHENHYDRAMINE 25 MG CAPSULE PO ONE (06:30)
[2019-01-05] MEDS: POLYETHYLENE GLYCOL 17 GM PACKET PO SCH (07:52)
[2019-01-05] MEDS: TAMSULOSIN 0.4 MG CAP.ER.24H PO SCH (08:01)
[2019-01-05] MEDS: ENOXAPARIN 60 MG/0.6 ML SQ SCH ×2 (08:01→19:52)
[2019-01-05] MEDS: OMEPRAZOLE 20 MG CAPSULE.DR PO SCH (08:01)
[2019-01-05] MEDS: MIDODRINE 5 MG TABLET PO SCH ×2 (08:01→19:51)
[2019-01-05] MEDS: metroNIDAZOLE 500 MG TABLET PO SCH ×3 (08:01→21:48)
[2019-01-05] MEDS: DRONABINOL 5 MG CAPSULE PO SCH ×2 (08:01→19:50)
[2019-01-05] MEDS: HYDROmorphone 2 MG/ML, 1ML IV PRN ×5 (08:02→23:04)
[2019-01-05] MEDS: DOCUSATE 100 MG CAPSULE PO SCH ×2 (08:02→19:52)
[2019-01-05] MEDS: TBO-FILGRASTIM 300 MCG/0.5 ML SQ SCH (09:50)
[2019-01-05 13:06] LABS: ALANINE AMINOTRANSFERASE 17 U/L (12-78); ALBUMIN 2.4 g/dL (3.4-5.0); ANION GAP 5 mmol/L (5-15); CHLORIDE 109 mmol/L (98-107)
[2019-01-05 13:09] LABS: ALKALINE PHOSPHATASE 312 U/L (45-117); BILIRUBIN,TOTAL 0.4 mg/dL (0.2-1.0); TOTAL PROTEIN 5.6 g/dL (6.4-8.2)
[2019-01-06 00:45] VITALS: BP 96/60
[2019-01-06] MEDS: HYDROmorphone 2 MG/ML, 1ML IV PRN ×6 (04:43→20:56)
[2019-01-06] MEDS: OMEPRAZOLE 20 MG CAPSULE.DR PO SCH (05:06)
[2019-01-06] MEDS: metroNIDAZOLE 500 MG TABLET PO SCH ×3 (05:06→20:54)
[2019-01-06 05:39] LABS: MEAN CORPUSCULAR HEMOGLOBIN 29.8 pg (27.5-34.5); MEAN CORPUSCULAR HGB CONC 34.5 g/dL (33.2-36.2); MEAN CORPUSCULAR VOLUME 86.4 fL (81-97); MEAN PLATELET VOLUME 7.1 fL (7.4-10.4); PLATELET COUNT 159 x10^3/uL (130-400); RED BLOOD COUNT 2.54 x10^6/uL (4.38-5.82); RED CELL DISTRIBUTION WIDTH 14.3 % (9.4-14.8)
[2019-01-06 06:42] LABS: MD YES
[2019-01-06 06:47] LABS: BAND#(MANUAL) 0.03 x10^3/uL; BANDS%(MANUAL) 4 % (0-7); BASOS#(MANUAL) 0.02 x10^3/uL (0-0.1); BASOS% (MANUAL) 2 % (0-1); EOS#(MANUAL) 0.02 x10^3/uL (0.0-0.4); EOS% (MANUAL) 2 % (1-7); LYMPH#(MANUAL) 0.37 x10^3/uL (1-3.4); LYMPHS% (MANUAL) 46 % (22-44); MONOS% (MANUAL) 12 % (2-9); NRBC % (MANUAL) 4 % (0-1); SEG#(MANUAL) 0.27 x10^3/uL (1.8-6.8); SEGS% (MANUAL) 34 % (42-75)
[2019-01-06 06:48] LABS: <PLATELET ESTIMATE> ADEQUATE; <PLT MORPHOLOGY> NORMAL PLT MORPH; ANISOCYTOSIS 1+; POLYCHROMASIA 1+
[2019-01-06] MEDS: TAMSULOSIN 0.4 MG CAP.ER.24H PO SCH (08:02)
[2019-01-06] MEDS: DRONABINOL 5 MG CAPSULE PO SCH ×2 (08:02→20:54)
[2019-01-06] MEDS: DOCUSATE 100 MG CAPSULE PO SCH ×2 (08:03→20:54)
[2019-01-06] MEDS: MIDODRINE 5 MG TABLET PO SCH ×2 (08:03→20:54)
[2019-01-06] MEDS: POLYETHYLENE GLYCOL 17 GM PACKET PO SCH (08:03)
[2019-01-06] MEDS: SODIUM CHLORIDE 0.9% 1,000 ML IV SCH ×2 (08:04→17:31)
[2019-01-06] MEDS: ENOXAPARIN 60 MG/0.6 ML SQ SCH ×2 (08:04→20:53)
[2019-01-06 08:52] VITALS: BP 101/64
[2019-01-06] MEDS: TBO-FILGRASTIM 300 MCG/0.5 ML SQ SCH (09:47)
[2019-01-06] MEDS ORDERED: LORazepam 2 MG/ML, 1ML IV PRN (10:12)
[2019-01-06 14:00] VITALS: BP 95/62
[2019-01-06] MEDS: DIAZEPAM 2 MG TABLET PO PRN ×2 (15:35→20:54)
[2019-01-06 20:33] VITALS: BP 107/66
[2019-01-06] MEDS: TEMAZEPAM 15 MG CAPSULE PO PRN (20:54)
[2019-01-07] MEDS: HYDROmorphone 2 MG/ML, 1ML IV PRN ×7 (00:53→20:42)
[2019-01-07 00:54] VITALS: BP 104/68
[2019-01-07] MEDS: SODIUM CHLORIDE 0.9% 1,000 ML IV SCH (04:57)
[2019-01-07] MEDS: OMEPRAZOLE 20 MG CAPSULE.DR PO SCH (05:09)
[2019-01-07] MEDS: metroNIDAZOLE 500 MG TABLET PO SCH ×3 (05:09→21:27)
[2019-01-07 05:34] LABS: MEAN CORPUSCULAR HEMOGLOBIN 29.8 pg (27.5-34.5); MEAN CORPUSCULAR HGB CONC 34.1 g/dL (33.2-36.2); MEAN CORPUSCULAR VOLUME 87.2 fL (81-97); MEAN PLATELET VOLUME 7.3 fL (7.4-10.4); PLATELET COUNT 105 x10^3/uL (130-400); RED BLOOD COUNT 2.49 x10^6/uL (4.38-5.82); RED CELL DISTRIBUTION WIDTH 14.2 % (9.4-14.8)
[2019-01-07 05:38] LABS: ANION GAP 6 mmol/L (5-15); CALCIUM 7.5 mg/dL (8.5-10.1); CHLORIDE 112 mmol/L (98-107)
[2019-01-07 05:39] LABS: CREATININE 0.38 mg/dL (0.7-1.3)
[2019-01-07 07:27] LABS: MD YES
[2019-01-07 07:30] LABS: BASOS#(MANUAL) 0.02 x10^3/uL (0-0.1); BASOS% (MANUAL) 2 % (0-1); MONOS#(MANUAL) 0.23 x10^3/uL (0.3-2.7); REACTIVE LYMPHS # (MANUAL) 0.02 x10^3/uL (0-0); REACTIVE LYMPHS % (MANUAL) 2 % (0-0)
[2019-01-07 07:31] LABS: LYMPHS% (MANUAL) 56 % (22-44); MONOS% (MANUAL) 26 % (2-9); SEG#(MANUAL) 0.13 x10^3/uL (1.8-6.8); SEGS% (MANUAL) 14 % (42-75)
[2019-01-07 07:32] LABS: <PLATELET ESTIMATE> DECREASED; <PLT MORPHOLOGY> NORMAL PLT MORPH; ANISOCYTOSIS 1+; POLYCHROMASIA 1+
[2019-01-07 07:43] VITALS: BP 101/64
[2019-01-07] MEDS: TAMSULOSIN 0.4 MG CAP.ER.24H PO SCH (08:19)
[2019-01-07] MEDS: MIDODRINE 5 MG TABLET PO SCH ×2 (08:19→21:28)
[2019-01-07] MEDS: DRONABINOL 5 MG CAPSULE PO SCH ×2 (08:19→21:28)
[2019-01-07] MEDS: DOCUSATE 100 MG CAPSULE PO SCH ×2 (08:20→21:28)
[2019-01-07] MEDS: POLYETHYLENE GLYCOL 17 GM PACKET PO SCH (08:20)
[2019-01-07] MEDS: ENOXAPARIN 60 MG/0.6 ML SQ SCH ×2 (08:21→21:32)
[2019-01-07] MEDS ORDERED: POTASSIUM CHLORIDE 20 MEQ TAB.ER.PRT PO ONE (10:30)
[2019-01-07] MEDS: TBO-FILGRASTIM 300 MCG/0.5 ML SQ SCH (10:56)
[2019-01-07 13:14] VITALS: BP 96/61
[2019-01-07] MEDS: DIAZEPAM 2 MG TABLET PO PRN (18:25)
[2019-01-07 20:57] VITALS: BP 107/67
[2019-01-07] MEDS: TEMAZEPAM 15 MG CAPSULE PO PRN (21:28)
[2019-01-08] MEDS: HYDROmorphone 2 MG/ML, 1ML IV PRN ×6 (03:54→19:52)
[2019-01-08 03:58] VITALS: BP 100/64
[2019-01-08] MEDS: SODIUM CHLORIDE 0.9% 1,000 ML IV SCH ×3 (06:15→20:57)
[2019-01-08] MEDS: metroNIDAZOLE 500 MG TABLET PO SCH ×3 (06:15→20:53)
[2019-01-08] MEDS: OMEPRAZOLE 20 MG CAPSULE.DR PO SCH (06:15)
[2019-01-08 06:43] LABS: MEAN CORPUSCULAR HEMOGLOBIN 30.1 pg (27.5-34.5); MEAN CORPUSCULAR HGB CONC 34.5 g/dL (33.2-36.2); MEAN CORPUSCULAR VOLUME 87.1 fL (81-97); MEAN PLATELET VOLUME 7.2 fL (7.4-10.4); PLATELET COUNT 71 x10^3/uL (130-400); RED BLOOD COUNT 2.56 x10^6/uL (4.38-5.82); RED CELL DISTRIBUTION WIDTH 14.6 % (9.4-14.8)
[2019-01-08 06:53] LABS: ANION GAP 4 mmol/L (5-15); CALCIUM 7.9 mg/dL (8.5-10.1); CHLORIDE 112 mmol/L (98-107); CREATININE 0.43 mg/dL (0.7-1.3)
[2019-01-08 07:02] LABS: MD YES
[2019-01-08 07:14] LABS: BAND#(MANUAL) 0.12 x10^3/uL; BANDS%(MANUAL) 8 % (0-7); METAMYELOCYTES# (MANUAL) 0.02 x10^3/uL (0-0); METAMYELOCYTES% (MANUAL) 1 % (0-1); NRBC % (MANUAL) 3 % (0-1); REACTIVE LYMPHS # (MANUAL) 0.03 x10^3/uL (0-0); REACTIVE LYMPHS % (MANUAL) 2 % (0-0)
[2019-01-08 07:15] LABS: ANISOCYTOSIS 1+; LYMPHS% (MANUAL) 40 % (22-44); MONOS#(MANUAL) 0.33 x10^3/uL (0.3-2.7); MONOS% (MANUAL) 22 % (2-9); POLYCHROMASIA 1+; SEG#(MANUAL) 0.41 x10^3/uL (1.8-6.8); SEGS% (MANUAL) 27 % (42-75)
[2019-01-08 07:16] LABS: <PLATELET ESTIMATE> DECREASED; <PLT MORPHOLOGY> NORMAL PLT MORPH
[2019-01-08] MEDS: POLYETHYLENE GLYCOL 17 GM PACKET PO SCH (09:00)
[2019-01-08] MEDS: DOCUSATE 100 MG CAPSULE PO SCH ×2 (09:00→20:54)
[2019-01-08] MEDS: ENOXAPARIN 60 MG/0.6 ML SQ SCH ×2 (09:47→20:56)
[2019-01-08] MEDS: DRONABINOL 5 MG CAPSULE PO SCH ×2 (09:47→20:54)
[2019-01-08] MEDS: MIDODRINE 5 MG TABLET PO SCH ×2 (09:48→20:54)
[2019-01-08] MEDS: TAMSULOSIN 0.4 MG CAP.ER.24H PO SCH (09:48)
[2019-01-08 10:11] VITALS: BP 98/57
[2019-01-08 11:00] VITALS: BP 101/73
[2019-01-08] MEDS: TBO-FILGRASTIM 300 MCG/0.5 ML SQ SCH (12:04)
[2019-01-08 15:33] VITALS: BP 95/58
[2019-01-08] MEDS: SENNA/DOCUSATE TABLET PO PRN (16:14)
[2019-01-08] MEDS: DIAZEPAM 2 MG TABLET PO PRN (17:55)
[2019-01-08 20:01] VITALS: BP 100/64
[2019-01-08] MEDS: TEMAZEPAM 15 MG CAPSULE PO PRN (20:54)
[2019-01-09 02:14] VITALS: BP 100/62
[2019-01-09] MEDS: HYDROmorphone 2 MG/ML, 1ML IV PRN ×7 (02:21→22:48)
[2019-01-09] MEDS: OMEPRAZOLE 20 MG CAPSULE.DR PO SCH (06:09)
[2019-01-09] MEDS: metroNIDAZOLE 500 MG TABLET PO SCH ×3 (06:09→21:26)
[2019-01-09] MEDS: SODIUM CHLORIDE 0.9% 1,000 ML IV SCH ×2 (06:13→15:49)
[2019-01-09 07:16] LABS: ANION GAP 5 mmol/L (5-15); CALCIUM 7.8 mg/dL (8.5-10.1); CHLORIDE 111 mmol/L (98-107); CREATININE 0.41 mg/dL (0.7-1.3)
[2019-01-09 07:21] LABS: MEAN CORPUSCULAR HEMOGLOBIN 29.4 pg (27.5-34.5); MEAN CORPUSCULAR HGB CONC 33.2 g/dL (33.2-36.2); MEAN CORPUSCULAR VOLUME 88.6 fL (81-97); MEAN PLATELET VOLUME 7.8 fL (7.4-10.4); PLATELET COUNT 67 x10^3/uL (130-400); RED BLOOD COUNT 2.76 x10^6/uL (4.38-5.82)
[2019-01-09 07:22] LABS: MD YES
[2019-01-09 07:26] LABS: ANISOCYTOSIS 1+; BAND#(MANUAL) 0.47 x10^3/uL; BANDS%(MANUAL) 8 % (0-7); LYMPH#(MANUAL) 1.42 x10^3/uL (1-3.4); LYMPHS% (MANUAL) 24 % (22-44); METAMYELOCYTES# (MANUAL) 0.35 x10^3/uL (0-0); METAMYELOCYTES% (MANUAL) 6 % (0-1); MONOS#(MANUAL) 0.77 x10^3/uL (0.3-2.7); MONOS% (MANUAL) 13 % (2-9); MYELOCYTES# (MANUAL) 0.24 x10^3/uL (0-0); MYELOCYTES% (MANUAL) 4 % (0-0); POLYCHROMASIA 1+; REACTIVE LYMPHS # (MANUAL) 0.12 x10^3/uL (0-0); REACTIVE LYMPHS % (MANUAL) 2 % (0-0); SEG#(MANUAL) 2.54 x10^3/uL (1.8-6.8); SEGS% (MANUAL) 43 % (42-75)
[2019-01-09 07:27] LABS: <PLATELET ESTIMATE> DECREASED; <PLT MORPHOLOGY> NORMAL PLT MORPH
[2019-01-09 08:26] VITALS: BP 100/63
[2019-01-09] MEDS: TBO-FILGRASTIM 300 MCG/0.5 ML SQ SCH (09:00)
[2019-01-09] MEDS: POLYETHYLENE GLYCOL 17 GM PACKET PO SCH (09:00)
[2019-01-09] MEDS: TAMSULOSIN 0.4 MG CAP.ER.24H PO SCH (09:30)
[2019-01-09] MEDS: ENOXAPARIN 60 MG/0.6 ML SQ SCH (09:30)
[2019-01-09] MEDS: DRONABINOL 5 MG CAPSULE PO SCH ×2 (09:30→21:24)
[2019-01-09] MEDS: DOCUSATE 100 MG CAPSULE PO SCH ×2 (09:30→21:25)
[2019-01-09] MEDS: MIDODRINE 5 MG TABLET PO SCH ×2 (10:00→21:26)
[2019-01-09 14:58] VITALS: BP 101/59
[2019-01-09] MEDS: SENNA/DOCUSATE TABLET PO PRN (15:24)
[2019-01-09] MEDS: DIAZEPAM 2 MG TABLET PO PRN (18:19)
[2019-01-09 19:05] VITALS: BP 100/63
[2019-01-09] MEDS: ENOXAPARIN 80 MG/0.8 ML SQ SCH (21:30)
[2019-01-10] MEDS: SODIUM CHLORIDE 0.9% 1,000 ML IV SCH ×3 (02:00→21:05)
[2019-01-10 02:08] VITALS: BP 100/63
[2019-01-10] MEDS: HYDROmorphone 2 MG/ML, 1ML IV PRN ×7 (02:20→20:45)
[2019-01-10] MEDS: metroNIDAZOLE 500 MG TABLET PO SCH ×3 (05:30→22:36)
[2019-01-10] MEDS: OMEPRAZOLE 20 MG CAPSULE.DR PO SCH (05:31)
[2019-01-10 05:48] LABS: ANION GAP 5 mmol/L (5-15); CALCIUM 7.9 mg/dL (8.5-10.1); CHLORIDE 112 mmol/L (98-107); CREATININE 0.35 mg/dL (0.7-1.3)
[2019-01-10 05:56] LABS: MEAN CORPUSCULAR HGB CONC 33.7 g/dL (33.2-36.2); MEAN CORPUSCULAR VOLUME 89.1 fL (81-97); RED BLOOD COUNT 2.62 x10^6/uL (4.38-5.82); RED CELL DISTRIBUTION WIDTH 15.1 % (9.4-14.8)
[2019-01-10 06:30] LABS: MEAN PLATELET VOLUME 7.8 fL (7.4-10.4); PLATELET COUNT 70 x10^3/uL (130-400)
[2019-01-10 06:31] LABS: MD YES
[2019-01-10 07:12] LABS: BAND#(MANUAL) 0.72 x10^3/uL; BANDS%(MANUAL) 9 % (0-7); LYMPH#(MANUAL) 1.28 x10^3/uL (1-3.4); LYMPHS% (MANUAL) 16 % (22-44); METAMYELOCYTES# (MANUAL) 0.64 x10^3/uL (0-0); METAMYELOCYTES% (MANUAL) 8 % (0-1); MONOS% (MANUAL) 5 % (2-9); MYELOCYTES# (MANUAL) 0.32 x10^3/uL (0-0); MYELOCYTES% (MANUAL) 4 % (0-0); SEG#(MANUAL) 4.64 x10^3/uL (1.8-6.8); SEGS% (MANUAL) 58 % (42-75)
[2019-01-10 07:13] LABS: <PLATELET ESTIMATE> DECREASED; <PLT MORPHOLOGY> NORMAL PLT MORPH; ANISOCYTOSIS 1+; POLYCHROMASIA 1+
[2019-01-10] MEDS: MIDODRINE 5 MG TABLET PO SCH ×2 (08:25→20:44)
[2019-01-10] MEDS: ENOXAPARIN 80 MG/0.8 ML SQ SCH ×2 (08:25→20:44)
[2019-01-10] MEDS: POLYETHYLENE GLYCOL 17 GM PACKET PO SCH (08:26)
[2019-01-10] MEDS: DRONABINOL 5 MG CAPSULE PO SCH ×2 (08:26→20:44)
[2019-01-10] MEDS: DOCUSATE 100 MG CAPSULE PO SCH ×2 (08:26→20:44)
[2019-01-10] MEDS: TAMSULOSIN 0.4 MG CAP.ER.24H PO SCH (08:26)
[2019-01-10 08:30] VITALS: BP 104/67
[2019-01-10 14:47] VITALS: BP 102/65
[2019-01-10 19:26] VITALS: BP 103/63
[2019-01-10] MEDS: TEMAZEPAM 15 MG CAPSULE PO PRN (22:36)
[2019-01-11] MEDS: HYDROmorphone 2 MG/ML, 1ML IV PRN ×7 (03:18→23:50)
[2019-01-11 03:19] VITALS: BP 108/68
[2019-01-11] MEDS: OMEPRAZOLE 20 MG CAPSULE.DR PO SCH (06:07)
[2019-01-11] MEDS: metroNIDAZOLE 500 MG TABLET PO SCH ×3 (06:07→21:08)
[2019-01-11] MEDS: SODIUM CHLORIDE 0.9% 1,000 ML IV SCH ×2 (06:14→18:00)
[2019-01-11 06:43] LABS: CHLORIDE 113 mmol/L (98-107); MEAN CORPUSCULAR HEMOGLOBIN 30.1 pg (27.5-34.5); MEAN CORPUSCULAR HGB CONC 33.8 g/dL (33.2-36.2); MEAN CORPUSCULAR VOLUME 89.1 fL (81-97); RED BLOOD COUNT 2.69 x10^6/uL (4.38-5.82); RED CELL DISTRIBUTION WIDTH 15.3 % (9.4-14.8)
[2019-01-11 06:53] LABS: ANION GAP 5 mmol/L (5-15); CALCIUM 7.9 mg/dL (8.5-10.1); CREATININE 0.39 mg/dL (0.7-1.3)
[2019-01-11 07:12] VITALS: BP 132/91
[2019-01-11 07:27] LABS: MD YES
[2019-01-11 07:28] LABS: MEAN PLATELET VOLUME 8.1 fL (7.4-10.4); PLATELET COUNT 90 x10^3/uL (130-400)
[2019-01-11 07:30] LABS: LYMPH#(MANUAL) 1.36 x10^3/uL (1-3.4); LYMPHS% (MANUAL) 16 % (22-44); MONOS#(MANUAL) 0.51 x10^3/uL (0.3-2.7); MONOS% (MANUAL) 6 % (2-9)
[2019-01-11] MEDS ORDERED: ACETAMINOPHEN 325 MG TABLET PO PRN (07:30)
[2019-01-11 07:31] LABS: BAND#(MANUAL) 1.28 x10^3/uL; BANDS%(MANUAL) 15 % (0-7); METAMYELOCYTES# (MANUAL) 0.51 x10^3/uL (0-0); METAMYELOCYTES% (MANUAL) 6 % (0-1); MYELOCYTES# (MANUAL) 0.43 x10^3/uL (0-0); MYELOCYTES% (MANUAL) 5 % (0-0); SEG#(MANUAL) 4.42 x10^3/uL (1.8-6.8); SEGS% (MANUAL) 52 % (42-75)
[2019-01-11 07:32] LABS: <PLATELET ESTIMATE> DECREASED; <PLT MORPHOLOGY> NORMAL PLT MORPH; ANISOCYTOSIS 1+; POLYCHROMASIA 1+; TOXIC GRAN 1+
[2019-01-11] MEDS: TAMSULOSIN 0.4 MG CAP.ER.24H PO SCH (09:03)
[2019-01-11] MEDS: ENOXAPARIN 80 MG/0.8 ML SQ SCH ×2 (09:03→21:07)
[2019-01-11] MEDS: DRONABINOL 5 MG CAPSULE PO SCH ×2 (09:03→21:07)
[2019-01-11] MEDS: MIDODRINE 5 MG TABLET PO SCH ×2 (09:03→21:07)
[2019-01-11 12:07] VITALS: BP 114/73
[2019-01-11] MEDS ORDERED: CATHFLO-ALTEPLASE 2 MG/2 ML CATHFLUSH ONE (14:30)
[2019-01-11] MEDS ORDERED: HYDROmorphone 2MG TABLET ONE ×2 (17:01→21:05)
[2019-01-11] MEDS: HYDROmorphone 4MG TABLET PO PRN ×2 (17:03→21:09)
[2019-01-11 19:35] VITALS: BP 107/67
[2019-01-11] MEDS: TEMAZEPAM 15 MG CAPSULE PO PRN (21:15)
[2019-01-12] MEDS ORDERED: HYDROmorphone 2MG TABLET ONE ×7 (00:59→22:18)
[2019-01-12] MEDS: HYDROmorphone 4MG TABLET PO PRN ×6 (01:01→22:21)
[2019-01-12 03:10] VITALS: BP 110/66
[2019-01-12] MEDS: SODIUM CHLORIDE 0.9% 1,000 ML IV SCH (04:00)
[2019-01-12] MEDS: HYDROmorphone 2 MG/ML, 1ML IV PRN ×5 (04:02→20:47)
[2019-01-12] MEDS: metroNIDAZOLE 500 MG TABLET PO SCH ×3 (05:07→20:48)
[2019-01-12 05:57] LABS: MEAN CORPUSCULAR HEMOGLOBIN 29.6 pg (27.5-34.5); MEAN CORPUSCULAR HGB CONC 33.1 g/dL (33.2-36.2); MEAN CORPUSCULAR VOLUME 89.3 fL (81-97); MEAN PLATELET VOLUME 8.4 fL (7.4-10.4); PLATELET COUNT 124 x10^3/uL (130-400); RED BLOOD COUNT 2.66 x10^6/uL (4.38-5.82); RED CELL DISTRIBUTION WIDTH 15.4 % (9.4-14.8)
[2019-01-12 06:27] LABS: MD YES
[2019-01-12 06:28] LABS: BAND#(MANUAL) 1.68 x10^3/uL; BANDS%(MANUAL) 17 % (0-7); LYMPH#(MANUAL) 1.49 x10^3/uL (1-3.4); LYMPHS% (MANUAL) 15 % (22-44); METAMYELOCYTES# (MANUAL) 0.59 x10^3/uL (0-0); METAMYELOCYTES% (MANUAL) 6 % (0-1); MONOS% (MANUAL) 2 % (2-9); MYELOCYTES% (MANUAL) 4 % (0-0); SEG#(MANUAL) 5.54 x10^3/uL (1.8-6.8); SEGS% (MANUAL) 56 % (42-75)
[2019-01-12 06:30] LABS: <PLATELET ESTIMATE> DECREASED; <PLT MORPHOLOGY> NORMAL PLT MORPH; ANISOCYTOSIS 1+; POLYCHROMASIA 1+; TOXIC GRAN 1+
[2019-01-12] MEDS ORDERED: POTASSIUM CHLORIDE 20 MEQ TAB.ER.PRT PO ONE (07:30)
[2019-01-12] MEDS ORDERED: MS CONTIN MC SCH (07:30)
[2019-01-12 08:31] VITALS: BP 102/64
[2019-01-12] MEDS: DRONABINOL 5 MG CAPSULE PO SCH ×2 (09:24→20:48)
[2019-01-12] MEDS: ALENDRONATE 10 MG TABLET PO SCH (09:24)
[2019-01-12] MEDS: ENOXAPARIN 80 MG/0.8 ML SQ SCH ×2 (09:24→20:47)
[2019-01-12] MEDS: MIDODRINE 5 MG TABLET PO SCH ×2 (09:25→20:48)
[2019-01-12] MEDS: LACTOBACILLUS CHEW TABLET PO SCH ×3 (09:25→20:48)
[2019-01-12] MEDS: TAMSULOSIN 0.4 MG CAP.ER.24H PO SCH (09:26)
[2019-01-12 14:19] VITALS: BP 97/59
[2019-01-12 19:33] VITALS: BP 103/60
[2019-01-12] MEDS: TEMAZEPAM 15 MG CAPSULE PO PRN (22:20)
[2019-01-13] MEDS: HYDROmorphone 2 MG/ML, 1ML IV PRN ×6 (00:59→22:17)
[2019-01-13 02:04] VITALS: BP 105/61
[2019-01-13] MEDS ORDERED: HYDROmorphone 2MG TABLET ONE ×6 (02:31→20:32)
[2019-01-13] MEDS: HYDROmorphone 4MG TABLET PO PRN ×5 (03:48→20:35)
[2019-01-13 04:26] LABS: ANION GAP 5 mmol/L (5-15); CALCIUM 8.1 mg/dL (8.5-10.1); CHLORIDE 112 mmol/L (98-107); CREATININE 0.41 mg/dL (0.7-1.3)
[2019-01-13 05:01] LABS: MEAN CORPUSCULAR HGB CONC 33.5 g/dL (33.2-36.2); MEAN CORPUSCULAR VOLUME 89.7 fL (81-97); MEAN PLATELET VOLUME 7.7 fL (7.4-10.4); PLATELET COUNT 169 x10^3/uL (130-400); RED BLOOD COUNT 2.73 x10^6/uL (4.38-5.82); RED CELL DISTRIBUTION WIDTH 15.6 % (9.4-14.8)
[2019-01-13 05:38] LABS: MD YES
[2019-01-13 05:41] LABS: <PLATELET ESTIMATE> ADEQUATE; <PLT MORPHOLOGY> NORMAL PLT MORPH; ANISOCYTOSIS 1+; BAND#(MANUAL) 1.02 x10^3/uL; BANDS%(MANUAL) 10 % (0-7); LYMPH#(MANUAL) 1.63 x10^3/uL (1-3.4); LYMPHS% (MANUAL) 16 % (22-44); METAMYELOCYTES# (MANUAL) 0.51 x10^3/uL (0-0); METAMYELOCYTES% (MANUAL) 5 % (0-1); MONOS% (MANUAL) 2 % (2-9); MYELOCYTES# (MANUAL) 0.61 x10^3/uL (0-0); MYELOCYTES% (MANUAL) 6 % (0-0); NRBC % (MANUAL) 1 % (0-1); POLYCHROMASIA 1+; SEG#(MANUAL) 6.22 x10^3/uL (1.8-6.8); SEGS% (MANUAL) 61 % (42-75); TOXIC GRAN 1+
[2019-01-13] MEDS: ALENDRONATE 10 MG TABLET PO SCH (06:10)
[2019-01-13] MEDS: metroNIDAZOLE 500 MG TABLET PO SCH ×3 (06:10→22:17)
[2019-01-13] MEDS ORDERED: DIAZEPAM 2 MG TABLET PO PRN (07:30)
[2019-01-13 07:33] VITALS: BP 97/64
[2019-01-13] MEDS: ENOXAPARIN 80 MG/0.8 ML SQ SCH ×2 (10:04→22:17)
[2019-01-13] MEDS: MIDODRINE 5 MG TABLET PO SCH ×2 (10:05→20:34)
[2019-01-13] MEDS: LACTOBACILLUS CHEW TABLET PO SCH ×3 (10:05→20:33)
[2019-01-13] MEDS: DRONABINOL 5 MG CAPSULE PO SCH ×3 (10:05→20:33)
[2019-01-13 14:00] VITALS: BP 95/57
[2019-01-13 19:07] VITALS: BP 97/59
[2019-01-14] MEDS ORDERED: HYDROmorphone 2MG TABLET ONE ×2 (00:25→06:13)
[2019-01-14 00:28] VITALS: BP 101/66
[2019-01-14] MEDS: HYDROmorphone 4MG TABLET PO PRN ×2 (00:31→06:16)
[2019-01-14] MEDS: HYDROmorphone 2 MG/ML, 1ML IV PRN ×2 (02:16→06:42)
[2019-01-14 03:29] LABS: MEAN CORPUSCULAR HEMOGLOBIN 29.6 pg (27.5-34.5); MEAN CORPUSCULAR HGB CONC 32.9 g/dL (33.2-36.2); MEAN PLATELET VOLUME 7.8 fL (7.4-10.4); PLATELET COUNT 254 x10^3/uL (130-400); RED BLOOD COUNT 2.81 x10^6/uL (4.38-5.82); RED CELL DISTRIBUTION WIDTH 15.8 % (9.4-14.8)
[2019-01-14 03:30] LABS: MD YES
[2019-01-14 03:41] LABS: BAND#(MANUAL) 1.62 x10^3/uL; BANDS%(MANUAL) 15 % (0-7); LYMPH#(MANUAL) 2.92 x10^3/uL (1-3.4); LYMPHS% (MANUAL) 27 % (22-44); METAMYELOCYTES# (MANUAL) 0.54 x10^3/uL (0-0); METAMYELOCYTES% (MANUAL) 5 % (0-1); MONOS#(MANUAL) 0.43 x10^3/uL (0.3-2.7); MONOS% (MANUAL) 4 % (2-9); MYELOCYTES# (MANUAL) 0.43 x10^3/uL (0-0); MYELOCYTES% (MANUAL) 4 % (0-0); NRBC % (MANUAL) 1 % (0-1); SEG#(MANUAL) 4.86 x10^3/uL (1.8-6.8); SEGS% (MANUAL) 45 % (42-75)
[2019-01-14 03:42] LABS: <PLATELET ESTIMATE> ADEQUATE; <PLT MORPHOLOGY> NORMAL PLT MORPH; ANISOCYTOSIS 1+; POLYCHROMASIA 1+
[2019-01-14] MEDS: metroNIDAZOLE 500 MG TABLET PO SCH (06:16)
[2019-01-14] MEDS: ALENDRONATE 10 MG TABLET PO SCH (06:16)
[2019-01-14 07:50] VITALS: BP 96/58
[2019-01-14] MEDS: MIDODRINE 5 MG TABLET PO SCH ×2 (08:21→19:26)
[2019-01-14] MEDS: DRONABINOL 5 MG CAPSULE PO SCH ×2 (08:21→19:25)
[2019-01-14] MEDS: LACTOBACILLUS CHEW TABLET PO SCH ×3 (08:21→20:22)
[2019-01-14] MEDS: SENNA/DOCUSATE TABLET PO PRN (08:40)
[2019-01-14] MEDS: ENOXAPARIN 60 MG/0.6 ML SQ SCH ×2 (10:33→22:47)
[2019-01-14] MEDS: HYDROmorphone 2MG TABLET PO PRN ×3 (10:33→20:22)
[2019-01-14 14:00] VITALS: BP 94/62
[2019-01-14 20:05] VITALS: BP 98/63
[2019-01-14] MEDS: TEMAZEPAM 15 MG CAPSULE PO PRN ×2 (20:22→22:47)
[2019-01-15] MEDS: HYDROmorphone 2MG TABLET PO PRN ×6 (00:20→22:52)
[2019-01-15 03:20] VITALS: BP 98/58
[2019-01-15] MEDS: ALENDRONATE 10 MG TABLET PO SCH (06:41)
[2019-01-15 07:32] VITALS: BP 98/60
[2019-01-15 07:35] VITALS: BP 94/64
[2019-01-15 07:37] VITALS: BP 92/67
[2019-01-15] MEDS: LACTOBACILLUS CHEW TABLET PO SCH ×3 (09:23→21:16)
[2019-01-15] MEDS: ENOXAPARIN 60 MG/0.6 ML SQ SCH ×2 (09:23→22:51)
[2019-01-15] MEDS: MIDODRINE 5 MG TABLET PO SCH ×2 (09:24→21:16)
[2019-01-15] MEDS: DRONABINOL 5 MG CAPSULE PO SCH ×2 (09:24→21:16)
[2019-01-15] MEDS: SENNA/DOCUSATE TABLET PO PRN (09:24)
[2019-01-15 14:45] VITALS: BP 91/56
[2019-01-15 15:24] LABS: OSMOLALITY,URINE 494 mOsm/kg (500-850)
[2019-01-15 19:41] VITALS: BP 98/59
[2019-01-15] MEDS: TEMAZEPAM 15 MG CAPSULE PO PRN ×2 (21:16→22:52)
[2019-01-16 01:02] VITALS: BP 94/58
[2019-01-16] MEDS: HYDROmorphone 2MG TABLET PO PRN ×3 (04:10→15:46)
[2019-01-16 04:51] LABS: BASOPHILS # (AUTO) 0.02 x10^3/uL (0-0.1); BASOPHILS % (AUTO) 0 % (0-1); EOSINOPHILS % (AUTO) 1 % (1-7); LYMPHOCYTES # (AUTO) 2.23 x10^3/uL (1-3.4); LYMPHOCYTES % (AUTO) 30 % (22-44); MD NO; MEAN CORPUSCULAR HEMOGLOBIN 30.7 pg (27.5-34.5); MEAN CORPUSCULAR VOLUME 90.3 fL (81-97); MEAN PLATELET VOLUME 7.3 fL (7.4-10.4); MONOCYTES # (AUTO) 0.61 x10^3/uL (0.2-0.8); MONOCYTES % (AUTO) 8 % (2-9); NEUTROPHILS # (AUTO) 4.59 x10^3/uL (1.8-6.8); NEUTROPHILS % (AUTO) 61 % (42-75); PLATELET COUNT 417 x10^3/uL (130-400); RED BLOOD COUNT 2.91 x10^6/uL (4.38-5.82)
[2019-01-16 05:00] LABS: ALANINE AMINOTRANSFERASE 13 U/L (12-78); ALBUMIN 2.6 g/dL (3.4-5.0); ANION GAP 4 mmol/L (5-15); CHLORIDE 109 mmol/L (98-107); CREATININE 0.43 mg/dL (0.7-1.3)
[2019-01-16 05:02] LABS: ALKALINE PHOSPHATASE 228 U/L (45-117); BILIRUBIN,TOTAL 0.4 mg/dL (0.2-1.0); TOTAL PROTEIN 5.9 g/dL (6.4-8.2)
[2019-01-16 07:20] VITALS: BP 94/61
[2019-01-16] MEDS: ALENDRONATE 10 MG TABLET PO SCH (07:45)
[2019-01-16] MEDS ORDERED: SODIUM CHLORIDE 0.9% IV SCH (08:30)
[2019-01-16] MEDS ORDERED: IFOSFAMIDE IV SCH (08:30)
[2019-01-16] MEDS: SODIUM CHLORIDE 0.9% IV SCH ×3 (08:35→15:47)
[2019-01-16] MEDS: POTASSIUM CHLORIDE IV SCH (08:35)
[2019-01-16] MEDS: MAGNESIUM SULFATE IV SCH (08:35)
[2019-01-16] MEDS ORDERED: LORazepam 1MG TABLET PO PRN (09:00)
[2019-01-16] MEDS ORDERED: LORazepam INTENSOL 2 MG/ML SL PRN (09:00)
[2019-01-16] MEDS: DRONABINOL 5 MG CAPSULE PO SCH ×2 (09:55→21:02)
[2019-01-16] MEDS: LACTOBACILLUS CHEW TABLET PO SCH ×3 (09:56→21:02)
[2019-01-16] MEDS: MIDODRINE 5 MG TABLET PO SCH ×2 (09:56→21:02)
[2019-01-16] MEDS ORDERED: FOSAPREPITANT 150 MG in SODIUM CHLORIDE 0.9% 145 ML IV ONE (10:00)
[2019-01-16] MEDS: ENOXAPARIN 60 MG/0.6 ML SQ SCH ×2 (10:09→21:02)
[2019-01-16] MEDS: DESMOPRESSIN NASAL SPRAY 0.1MG/ML, 5ML NAS SCH (10:42)
[2019-01-16] MEDS: ONDANSETRON 16 MG, DEXAMETHASONE 10 MG in SODIUM CHLORIDE 0.9% 50 ML IVPB SCH (11:00)
[2019-01-16] MEDS: CISPLATIN 39 MG in SODIUM CHLORIDE 0.9% 250 ML IV SCH (11:49)
[2019-01-16] MEDS ORDERED: SODIUM CHLORIDE 0.9% IVPB ONE (13:00)
[2019-01-16] MEDS ORDERED: MESNA IVPB ONE (13:00)
[2019-01-16 13:15] VITALS: BP 93/53
[2019-01-16] MEDS: ETOPOSIDE IV SCH (13:58)
[2019-01-16] MEDS: IFOSFAMIDE IV SCH (15:47)
[2019-01-16] MEDS: MESNA IVPB SCH (17:06)
[2019-01-16] MEDS: SODIUM CHLORIDE 0.9% IVPB SCH (17:06)
[2019-01-16] MEDS: ONDANSETRON 2MG/ML, 2ML IVPush PRN (19:41)
[2019-01-16 19:57] VITALS: BP 96/58
[2019-01-16 20:29] LABS: MICROSCOPIC INDICATED
[2019-01-16] MEDS: PROCHLORPERAZINE 10MG TABLET PO PRN (21:02)
[2019-01-16] MEDS: TEMAZEPAM 15 MG CAPSULE PO PRN (21:02)
[2019-01-17 02:21] VITALS: BP 109/65
[2019-01-17] MEDS: HYDROmorphone 2MG TABLET PO PRN ×4 (02:34→22:28)
[2019-01-17] MEDS: SODIUM CHLORIDE 0.9% IV SCH ×4 (03:37→16:16)
[2019-01-17] MEDS: MAGNESIUM SULFATE IV SCH ×2 (03:37→14:23)
[2019-01-17] MEDS: POTASSIUM CHLORIDE IV SCH ×2 (03:37→14:23)
[2019-01-17 05:52] LABS: BASOPHILS # (AUTO) 0.04 x10^3/uL (0-0.1); BASOPHILS % (AUTO) 0 % (0-1); EOSINOPHILS % (AUTO) 0 % (1-7); LYMPHOCYTES # (AUTO) 1.37 x10^3/uL (1-3.4); LYMPHOCYTES % (AUTO) 16 % (22-44); MD NO; MEAN CORPUSCULAR HGB CONC 32.9 g/dL (33.2-36.2); MEAN PLATELET VOLUME 7.4 fL (7.4-10.4); MONOCYTES # (AUTO) 0.58 x10^3/uL (0.2-0.8); MONOCYTES % (AUTO) 7 % (2-9); NEUTROPHILS # (AUTO) 6.55 x10^3/uL (1.8-6.8); NEUTROPHILS % (AUTO) 77 % (42-75); PLATELET COUNT 481 x10^3/uL (130-400); RED BLOOD COUNT 2.83 x10^6/uL (4.38-5.82); RED CELL DISTRIBUTION WIDTH 20.1 % (9.4-14.8)
[2019-01-17 06:00] LABS: ALBUMIN 2.5 g/dL (3.4-5.0); ANION GAP 3 mmol/L (5-15); CHLORIDE 110 mmol/L (98-107)
[2019-01-17 06:04] LABS: ALANINE AMINOTRANSFERASE 14 U/L (12-78); ALKALINE PHOSPHATASE 206 U/L (45-117); BILIRUBIN,TOTAL 0.3 mg/dL (0.2-1.0); CREATININE 0.45 mg/dL (0.7-1.3); TOTAL PROTEIN 5.2 g/dL (6.4-8.2)
[2019-01-17 07:23] VITALS: BP 100/60
[2019-01-17] MEDS: DRONABINOL 5 MG CAPSULE PO SCH ×2 (08:34→20:44)
[2019-01-17] MEDS: LACTOBACILLUS CHEW TABLET PO SCH ×3 (08:34→20:44)
[2019-01-17] MEDS: MIDODRINE 5 MG TABLET PO SCH ×2 (08:35→20:44)
[2019-01-17] MEDS: DESMOPRESSIN NASAL SPRAY 0.1MG/ML, 5ML NAS SCH (08:35)
[2019-01-17] MEDS: ENOXAPARIN 60 MG/0.6 ML SQ SCH ×2 (10:39→22:28)
[2019-01-17] MEDS: ONDANSETRON 16 MG, DEXAMETHASONE 10 MG in SODIUM CHLORIDE 0.9% 50 ML IVPB SCH (10:39)
[2019-01-17] MEDS: CISPLATIN 39 MG in SODIUM CHLORIDE 0.9% 250 ML IV SCH (11:39)
[2019-01-17 13:50] VITALS: BP 99/60
[2019-01-17] MEDS: ETOPOSIDE IV SCH (14:23)
[2019-01-17] MEDS: IFOSFAMIDE IV SCH (16:16)
[2019-01-17] MEDS: SODIUM CHLORIDE 0.9% IVPB SCH (16:16)
[2019-01-17] MEDS: MESNA IVPB SCH (16:16)
[2019-01-17] MEDS: PROCHLORPERAZINE 10MG TABLET PO PRN (17:41)
[2019-01-17] MEDS: ONDANSETRON 2MG/ML, 2ML IVPush PRN (19:44)
[2019-01-17 20:00] VITALS: BP 113/70
[2019-01-17 21:33] LABS: MICROSCOPIC NOT IND
[2019-01-18] MEDS: MAGNESIUM SULFATE IV SCH ×3 (00:32→20:50)
[2019-01-18] MEDS: POTASSIUM CHLORIDE IV SCH ×3 (00:32→20:50)
[2019-01-18] MEDS: SODIUM CHLORIDE 0.9% IV SCH ×5 (00:32→20:50)
[2019-01-18 02:00] VITALS: BP 116/68
[2019-01-18] MEDS: PROCHLORPERAZINE 5 MG/ML, 2ML IV PRN ×3 (02:04→19:40)
[2019-01-18] MEDS: HYDROmorphone 2MG TABLET PO PRN ×4 (04:22→19:30)
[2019-01-18 05:05] LABS: BASOPHILS # (AUTO) 0.02 x10^3/uL (0-0.1); BASOPHILS % (AUTO) 0 % (0-1); EOSINOPHILS # (AUTO) 0.13 x10^3/uL (0-0.4); EOSINOPHILS % (AUTO) 2 % (1-7); LYMPHOCYTES # (AUTO) 1.36 x10^3/uL (1-3.4); LYMPHOCYTES % (AUTO) 20 % (22-44); MD NO; MEAN CORPUSCULAR HEMOGLOBIN 30.9 pg (27.5-34.5); MEAN CORPUSCULAR HGB CONC 34.2 g/dL (33.2-36.2); MEAN CORPUSCULAR VOLUME 90.4 fL (81-97); MEAN PLATELET VOLUME 7.3 fL (7.4-10.4); MONOCYTES # (AUTO) 0.41 x10^3/uL (0.2-0.8); MONOCYTES % (AUTO) 6 % (2-9); NEUTROPHILS # (AUTO) 4.89 x10^3/uL (1.8-6.8); NEUTROPHILS % (AUTO) 72 % (42-75); PLATELET COUNT 425 x10^3/uL (130-400); RED BLOOD COUNT 2.76 x10^6/uL (4.38-5.82)
[2019-01-18 05:09] LABS: ALBUMIN 2.4 g/dL (3.4-5.0); ANION GAP 5 mmol/L (5-15); CALCIUM 7.8 mg/dL (8.5-10.1); CHLORIDE 101 mmol/L (98-107)
[2019-01-18 05:14] LABS: ALANINE AMINOTRANSFERASE 12 U/L (12-78); ALKALINE PHOSPHATASE 198 U/L (45-117); BILIRUBIN,TOTAL 0.4 mg/dL (0.2-1.0); CREATININE 0.33 mg/dL (0.7-1.3); TOTAL PROTEIN 5.3 g/dL (6.4-8.2)
[2019-01-18] MEDS: ALENDRONATE 10 MG TABLET PO SCH (06:12)
[2019-01-18] MEDS: ONDANSETRON 2MG/ML, 2ML IVPush PRN (06:12)
[2019-01-18 07:37] VITALS: BP 101/65
[2019-01-18] MEDS: LACTOBACILLUS CHEW TABLET PO SCH ×3 (09:55→20:49)
[2019-01-18] MEDS: MIDODRINE 5 MG TABLET PO SCH ×2 (09:55→20:49)
[2019-01-18] MEDS: DRONABINOL 5 MG CAPSULE PO SCH ×2 (09:55→20:49)
[2019-01-18] MEDS: ENOXAPARIN 60 MG/0.6 ML SQ SCH ×2 (09:57→22:24)
[2019-01-18] MEDS: ONDANSETRON 16 MG, DEXAMETHASONE 10 MG in SODIUM CHLORIDE 0.9% 50 ML IVPB SCH (10:35)
[2019-01-18] MEDS: CISPLATIN 39 MG in SODIUM CHLORIDE 0.9% 250 ML IV SCH (11:43)
[2019-01-18 12:05] VITALS: BP 107/68
[2019-01-18 12:18] LABS: MICROSCOPIC NOT IND
[2019-01-18] MEDS: ETOPOSIDE IV SCH (14:03)
[2019-01-18] MEDS: SODIUM CHLORIDE 0.9% IVPB SCH (15:23)
[2019-01-18] MEDS: MESNA IVPB SCH (15:23)
[2019-01-18] MEDS: IFOSFAMIDE IV SCH (16:10)
[2019-01-18 20:05] VITALS: BP 99/63
[2019-01-18] MEDS: LORazepam 2 MG/ML, 1ML IV PRN (21:46)
[2019-01-19] MEDS: ONDANSETRON 2MG/ML, 2ML IVPush PRN (00:15)
[2019-01-19] MEDS: PROCHLORPERAZINE 5 MG/ML, 2ML IV PRN ×2 (02:04→13:21)
[2019-01-19 02:12] VITALS: BP 112/69
[2019-01-19] MEDS: HYDROmorphone 2MG TABLET PO PRN ×2 (02:17→12:42)
[2019-01-19 05:48] LABS: ALANINE AMINOTRANSFERASE 31 U/L (12-78); ALBUMIN 2.6 g/dL (3.4-5.0); ANION GAP 4 mmol/L (5-15); CALCIUM 8.2 mg/dL (8.5-10.1); CHLORIDE 99 mmol/L (98-107)
[2019-01-19 05:51] LABS: ALKALINE PHOSPHATASE 196 U/L (45-117); BILIRUBIN,TOTAL 0.4 mg/dL (0.2-1.0); CREATININE 0.39 mg/dL (0.7-1.3); TOTAL PROTEIN 5.7 g/dL (6.4-8.2)
[2019-01-19 05:52] LABS: BASOPHILS # (AUTO) 0.03 x10^3/uL (0-0.1); BASOPHILS % (AUTO) 1 % (0-1); EOSINOPHILS % (AUTO) 0 % (1-7); LYMPHOCYTES # (AUTO) 0.83 x10^3/uL (1-3.4); LYMPHOCYTES % (AUTO) 20 % (22-44); MD NO; MEAN CORPUSCULAR HGB CONC 33.1 g/dL (33.2-36.2); MEAN CORPUSCULAR VOLUME 90.7 fL (81-97); MEAN PLATELET VOLUME 7.3 fL (7.4-10.4); MONOCYTES # (AUTO) 0.27 x10^3/uL (0.2-0.8); MONOCYTES % (AUTO) 7 % (2-9); NEUTROPHILS # (AUTO) 2.94 x10^3/uL (1.8-6.8); NEUTROPHILS % (AUTO) 72 % (42-75); PLATELET COUNT 475 x10^3/uL (130-400); RED BLOOD COUNT 2.89 x10^6/uL (4.38-5.82); RED CELL DISTRIBUTION WIDTH 19.5 % (9.4-14.8)
[2019-01-19] MEDS: ALENDRONATE 10 MG TABLET PO SCH ×2 (06:14→06:30)
[2019-01-19] MEDS: MAGNESIUM SULFATE IV SCH ×2 (06:15→16:31)
[2019-01-19] MEDS: POTASSIUM CHLORIDE IV SCH ×2 (06:15→16:31)
[2019-01-19] MEDS: SODIUM CHLORIDE 0.9% IV SCH ×4 (06:15→16:31)
[2019-01-19 06:16] LABS: MICROSCOPIC NOT IND
[2019-01-19 06:40] VITALS: BP 125/84
[2019-01-19] MEDS: LORazepam 2 MG/ML, 1ML IV PRN ×3 (07:41→22:05)
[2019-01-19] MEDS: DESMOPRESSIN NASAL SPRAY 0.1MG/ML, 5ML NAS SCH (09:00)
[2019-01-19] MEDS: DRONABINOL 5 MG CAPSULE PO SCH ×2 (09:26→19:29)
[2019-01-19] MEDS: LACTOBACILLUS CHEW TABLET PO SCH ×3 (09:27→20:51)
[2019-01-19] MEDS: MIDODRINE 5 MG TABLET PO SCH ×2 (09:27→20:51)
[2019-01-19] MEDS: ONDANSETRON 16 MG, DEXAMETHASONE 10 MG in SODIUM CHLORIDE 0.9% 50 ML IVPB SCH (10:08)
[2019-01-19] MEDS: ENOXAPARIN 60 MG/0.6 ML SQ SCH ×2 (11:06→23:03)
[2019-01-19] MEDS: CISPLATIN 39 MG in SODIUM CHLORIDE 0.9% 250 ML IV SCH (11:13)
[2019-01-19] MEDS: ETOPOSIDE IV SCH (13:25)
[2019-01-19] MEDS: IFOSFAMIDE IV SCH (15:14)
[2019-01-19] MEDS: MESNA IVPB SCH (15:17)
[2019-01-19] MEDS: SODIUM CHLORIDE 0.9% IVPB SCH (15:17)
[2019-01-19 15:29] VITALS: BP 111/70
[2019-01-19 19:24] VITALS: BP 113/70
[2019-01-19] MEDS: PROCHLORPERAZINE 10MG TABLET PO PRN (19:29)
[2019-01-20] MEDS: ONDANSETRON 2MG/ML, 2ML IVPush PRN
[2019-01-20] MEDS: PROCHLORPERAZINE 10MG TABLET PO PRN (01:26)
[2019-01-20] MEDS: POTASSIUM CHLORIDE IV SCH ×2 (01:27→10:45)
[2019-01-20] MEDS: MAGNESIUM SULFATE IV SCH ×2 (01:27→10:45)
[2019-01-20] MEDS: SODIUM CHLORIDE 0.9% IV SCH ×4 (01:27→15:26)
[2019-01-20 01:31] VITALS: BP 119/71
[2019-01-20 05:36] LABS: BASOPHILS % (AUTO) 2 % (0-1); EOSINOPHILS % (AUTO) 0 % (1-7); LYMPHOCYTES # (AUTO) 0.72 x10^3/uL (1-3.4); LYMPHOCYTES % (AUTO) 17 % (22-44); MD NO; MEAN CORPUSCULAR HEMOGLOBIN 30.3 pg (27.5-34.5); MEAN CORPUSCULAR HGB CONC 33.6 g/dL (33.2-36.2); MEAN PLATELET VOLUME 7.1 fL (7.4-10.4); MONOCYTES # (AUTO) 0.09 x10^3/uL (0.2-0.8); MONOCYTES % (AUTO) 2 % (2-9); NEUTROPHILS # (AUTO) 3.46 x10^3/uL (1.8-6.8); NEUTROPHILS % (AUTO) 79 % (42-75); PLATELET COUNT 425 x10^3/uL (130-400)
[2019-01-20 05:49] LABS: CHLORIDE 109 mmol/L (98-107)
[2019-01-20 06:12] LABS: ALANINE AMINOTRANSFERASE 14 U/L (12-78); ALBUMIN 2.7 g/dL (3.4-5.0); ALKALINE PHOSPHATASE 189 U/L (45-117); ANION GAP 6 mmol/L (5-15); BILIRUBIN,TOTAL 0.3 mg/dL (0.2-1.0); CALCIUM 8.1 mg/dL (8.5-10.1); CREATININE 0.49 mg/dL (0.7-1.3); TOTAL PROTEIN 5.6 g/dL (6.4-8.2)
[2019-01-20] MEDS: ALENDRONATE 10 MG TABLET PO SCH (06:15)
[2019-01-20 07:32] LABS: MICROSCOPIC NOT IND
[2019-01-20 07:36] VITALS: BP 117/73
[2019-01-20] MEDS: PROCHLORPERAZINE 5 MG/ML, 2ML IV PRN ×2 (07:55→16:30)
[2019-01-20] MEDS: DESMOPRESSIN NASAL SPRAY 0.1MG/ML, 5ML NAS SCH (09:00)
[2019-01-20] MEDS: MIDODRINE 5 MG TABLET PO SCH (09:41)
[2019-01-20] MEDS: LACTOBACILLUS CHEW TABLET PO SCH ×2 (09:41→15:54)
[2019-01-20] MEDS: DRONABINOL 5 MG CAPSULE PO SCH (09:42)
[2019-01-20] MEDS: ONDANSETRON 16 MG, DEXAMETHASONE 10 MG in SODIUM CHLORIDE 0.9% 50 ML IVPB SCH (10:36)
[2019-01-20] MEDS: ENOXAPARIN 60 MG/0.6 ML SQ SCH (10:46)
[2019-01-20] MEDS: HYDROmorphone 2MG TABLET PO PRN ×2 (10:57→15:53)
[2019-01-20] MEDS: CISPLATIN 39 MG in SODIUM CHLORIDE 0.9% 250 ML IV SCH (11:38)
[2019-01-20] MEDS: LORazepam 2 MG/ML, 1ML IV PRN (12:31)
[2019-01-20 12:42] VITALS: BP 109/67
[2019-01-20] MEDS: ETOPOSIDE IV SCH (14:01)
[2019-01-20] MEDS: IFOSFAMIDE IV SCH (15:26)
[2019-01-20] MEDS: SODIUM CHLORIDE 0.9% IVPB SCH (16:16)
[2019-01-20] MEDS: MESNA IVPB SCH (16:16)
[2019-01-20] MEDS ORDERED: DESM10SP2 NAS (16:25)
[2019-01-20] MEDS ORDERED: ALEN10TA6 PO (16:25)
[2019-01-20] MEDS ORDERED: APIX5TAB PO (16:25)
[2019-01-20] MEDS ORDERED: PROC10TA78 PO (16:25)
[2019-01-20] MEDS ORDERED: ACET325T14 PO (16:25)
[2019-01-20] MEDS ORDERED: DRON5CAP15 PO (16:25)
[2019-01-20] MEDS ORDERED: ACID1TAB7 PO (16:25)
[2019-01-20] MEDS ORDERED: MIDO5TAB9 PO (16:25)
[2019-01-20] MEDS ORDERED: HYDR2TAB40 PO (16:30)
[2019-01-20] MEDS ORDERED: LORA2ORA SL (16:30)
[2019-01-20] MEDS ORDERED: MORP30TA3 PO (16:30)
== END 2019-01-20 17:52 | disposition home health service (06) | DRG 515 ==
LOC: EDBD 14:15 → ED 18:25 → EDIP 20:56 → 3NW 23:40
PROVIDERS: ADMIT Hospitalist; ATTEND Hospitalist
PROC: 01N80ZZ Release Thoracic Nerve, Open Approach (ICD-10-PCS; 2018-11-25)
PROC: 30233R1 Transfusion of Nonautologous Platelets into Peripheral Vein, Percutaneous Approach (ICD-10-PCS; 2018-11-25)
PROC: 0VTB0ZZ Resection of Left Testis, Open Approach (ICD-10-PCS; principal; 2018-11-28 16:15)
PROC: 30233N1 Transfusion of Nonautologous Red Blood Cells into Peripheral Vein, Percutaneous Approach (ICD-10-PCS; 2018-11-29)
PROC: 02HV33Z Insertion of Infusion Device into Superior Vena Cava, Percutaneous Approach (ICD-10-PCS; 2018-12-04)
PROC: B5181ZA Fluoroscopy of Superior Vena Cava using Low Osmolar Contrast, Guidance (ICD-10-PCS; 2018-12-04)
PROC: B548ZZA Ultrasonography of Superior Vena Cava, Guidance (ICD-10-PCS; 2018-12-04)
PROC: 3E03305 Introduction of Other Antineoplastic into Peripheral Vein, Percutaneous Approach (ICD-10-PCS; 2018-12-04)
PROC: 0W993ZZ Drainage of Right Pleural Cavity, Percutaneous Approach (ICD-10-PCS; 2018-12-17)
PROC: 0T9B70Z Drainage of Bladder with Drainage Device, Via Natural or Artificial Opening (ICD-10-PCS; 2018-12-26)
DX: C79.51 Secondary malignant neoplasm of bone (principal); E43 Unspecified severe protein-calorie malnutrition; E88.3 Tumor lysis syndrome; N17.0 Acute kidney failure with tubular necrosis; I63.9 Cerebral infarction, unspecified; A41.9 Sepsis, unspecified organism; D61.810 Antineoplastic chemotherapy induced pancytopenia; C79.82 Secondary malignant neoplasm of genital organs; C78.02 Secondary malignant neoplasm of left lung; C78.01 Secondary malignant neoplasm of right lung; C78.7 Secondary malignant neoplasm of liver and intrahepatic bile duct; C79.49 Secondary malignant neoplasm of other parts of nervous system; C90.00 Multiple myeloma not having achieved remission; Z68.1 Body mass index [BMI] 19.9 or less, adult; I82.411 Acute embolism and thrombosis of right femoral vein; G81.90 Hemiplegia, unspecified affecting unspecified side; G82.20 Paraplegia, unspecified; G95.20 Unspecified cord compression; J90 Pleural effusion, not elsewhere classified; J98.11 Atelectasis; M84.550A Pathological fracture in neoplastic disease, pelvis, initial encounter for fracture; A04.72 Enterocolitis due to Clostridium difficile, not specified as recurrent; E23.2 Diabetes insipidus; G83.4 Cauda equina syndrome; I82.401 Acute embolism and thrombosis of unspecified deep veins of right lower extremity; B96.20 Unspecified Escherichia coli [E. coli] as the cause of diseases classified elsewhere; D72.825 Bandemia; E83.52 Hypercalcemia; E87.5 Hyperkalemia; E87.6 Hypokalemia; F12.90 Cannabis use, unspecified, uncomplicated; F17.210 Nicotine dependence, cigarettes, uncomplicated; G89.3 Neoplasm related pain (acute) (chronic); G93.9 Disorder of brain, unspecified; H91.90 Unspecified hearing loss, unspecified ear; I95.1 Orthostatic hypotension; Z51.5 Encounter for palliative care; K59.00 Constipation, unspecified; M54.10 Radiculopathy, site unspecified; K82.8 Other specified diseases of gallbladder; M48.04 Spinal stenosis, thoracic region; D69.59 Other secondary thrombocytopenia; T45.1X5A Adverse effect of antineoplastic and immunosuppressive drugs, initial encounter; Y92.098 Other place in other non-institutional residence as the place of occurrence of the external cause; Z79.82 Long term (current) use of aspirin; Z80.8 Family history of malignant neoplasm of other organs or systems; Z82.49 Family history of ischemic heart disease and other diseases of the circulatory system; Z83.3 Family history of diabetes mellitus; Z85.47 Personal history of malignant neoplasm of testis; Z86.718 Personal history of other venous thrombosis and embolism; Z90.79 Acquired absence of other genital organ(s); Z87.440 Personal history of urinary (tract) infections
CPT/HCPCS: 32555; 36415; 72072; 73502; 74021; 76000; 76870; 82042; 82945; 83986; 87806; 96361; 99291; J3490; J7042; Q0164; 36430; 36573; 70553; 71045; 71250; 71260; 72157; 72158; 74177; 75635; 80048; 80053; 80074; 80202; 81001; 81003; 82040; 82105; 82272; 82306; 82607; 82728; 83010; 83540; 83550; 83605; 83615; 83735; 83935; 84100; 84157; 84300; 84466; 84550; 84702; 85014; 85018; 85025; 85045; 85520; 85610; 85730; 86709; 86850; 86900; 86923; 87040; 87070; 87075; 87077; 87086; 87102; 87116; 87186; 87205; 87206; 87324; 88112; 88305; 88309; 88311; 88341; 88342; 89051; 93005; 93306; 93312; 93321; 93325; 93970; 96374; 96375; A9585; G0378; J0690; J0696; J1100; J1170; J1453; J1644; J1650; J2250; J2270; J2405; J2704; J2997; J3010; J3360; J3370; J3475; J3480; J9060; J9181; J9209; Q0167; Q9967; C1751; G0475; J0780; J1200; J1447; J2060; J2370; J7030; J7040; J7050; J7120; J9208; P9016; P9035; P9037; P9040; Q0163

== ENCOUNTER 2019-01-21 01:20 | Emergency (ER) | payer MEDICAID ==
[~2019-01-21] VITALS: Ht 193 cm; Wt 65.0 kg
[~2019-01-21 01:20] MED LIST: ACET325T14 PO; ACID1TAB7 PO; ALEN10TA6 PO; APIX5TAB PO; DESM10SP2 NAS; DRON5CAP15 PO; HYDR2TAB40 PO; LORA2ORA SL; MIDO5TAB9 PO; MORP30TA3 PO; NAPR220C2 PO; PROC10TA78 PO
[2019-01-21 01:24] VITALS: BP 104/73
--- NOTE | 2019-01-21 01:44 | NUR ---
assessment made. chart up for MD to see.
--- NOTE | 2019-01-21 02:01 | NUR ---
DR. VALDEZ AT BEDSIDE EVALUATING PT
[2019-01-21] MEDS ORDERED: LORazepam 2 MG/ML, 1ML IM ONE (02:30)
[2019-01-21] MEDS ORDERED: LORazepam 2 MG/ML, 1ML ONE (02:32)
--- NOTE | 2019-01-21 02:41 | NUR ---
Assist RN: cuong given IM.
--- NOTE | 2019-01-21 03:04 | NUR ---
PT RESTING ON GURNEY WITH EYES CLOSED. AROUSES TO VERBAL STIMULI. STATES HIS NAUSEA IS SUBSIDING BUT STILL FEELS THOUGH THERE IS SOMETHING IN HIS THROAT BUT HE CAN SWALLOW AND BREATHE WITHOUT DIFFICULTY. WARM BLANKETS AND PILLOWS PROVIDED, HOB LOWERED FOR COMFORT AND LIGHTS DIMMED. WILL CONTINUE TO MONITOR. CALL LIGHT WITHIN REACH.
[2019-01-21] MEDS ORDERED: MAALOX/HYOSCYAMINE/LIDOCAINE 45 ML BTL ONE (03:38)
--- NOTE | 2019-01-21 03:45 | NUR ---
PT SLEEPING. AROUSED BY VERBAL STIMULI. STATES NAUSEA HAS SUBSIDED. PROVIDED WITH A GI COCKTAIL TO GARGLE AND SWALLOW TO SEE IF IT HELPS WITH HIS THROAT. HE STATES NOT VOMITING HAS HELPED TREMENDOUSLY. PT MEDICATED PER EMAR. 5 RIGHTS ADDRESSED.
[2019-01-21] MEDS ORDERED: MAALOX/HYOSCYAMINE/LIDOCAINE 45 ML BTL PO ONE (04:00)
--- NOTE | 2019-01-21 04:24 | NUR ---
Patient/Caregiver given discharge instructions and they have confirmed that they understand the instructions. Patient ambulatory with steady gait.
== END 2019-01-21 04:26 | disposition home or self-care (01) ==
LOC: ED 02:22
DX: R11.2 Nausea with vomiting, unspecified (principal); R09.89 Other specified symptoms and signs involving the circulatory and respiratory systems; F17.200 Nicotine dependence, unspecified, uncomplicated
CPT/HCPCS: 96372; 99283; J2060

== ENCOUNTER 2019-01-22 15:46 | Inpatient (IN) | payer MEDICAID ==
[~2019-01-22] VITALS: Ht 193 cm; Wt 59.8 kg
--- NOTE | 2019-01-22 15:56 | NUR ---
First contact with pt. Pt brought down to ED from infusion room as code 250. Pt has syncopal episode while in infusion center checking in. Pt states "All of a sudden I was in a dark tunnel and I just went down." Pt states he was sititng in a chair at the time, no injuries. Pt appears weak and pale, states that he is non-ambulatory as baseline due to increasing leg weakness. Pt placed in gown, positioned for comfort in bed. Continuous heart, oxygen and BP monitors applied, all safety measures observed. Attempted to complete orthostatic VS assessment. Pt's HR increased from 103 to 129 when changing position from supine to sitting. Pt c/o extreme dizziness while sitting, unable to tolerate sitting up to take BP measurement. Pt assisted to lie back down and positioned for comfort.
[2019-01-22] MEDS ORDERED: SODIUM CHLORIDE FLUSH 10ML SYR IVF ONE (16:00)
[2019-01-22] MEDS ORDERED: SODIUM CHLORIDE 0.9% 1,000ML IVBOLUS ONE (16:00)
[2019-01-22 16:10] LABS: BASOPHILS # (AUTO) 0.03 x10^3/uL (0-0.1); BASOPHILS % (AUTO) 1 % (0-1); EOSINOPHILS % (AUTO) 0 % (1-7); LYMPHOCYTES # (AUTO) 0.87 x10^3/uL (1-3.4); LYMPHOCYTES % (AUTO) 15 % (22-44); MD NO; MEAN CORPUSCULAR HEMOGLOBIN 30.7 pg (27.5-34.5); MEAN CORPUSCULAR HGB CONC 34.4 g/dL (33.2-36.2); MEAN CORPUSCULAR VOLUME 89.3 fL (81-97); MEAN PLATELET VOLUME 6.7 fL (7.4-10.4); MONOCYTES # (AUTO) 0.03 x10^3/uL (0.2-0.8); MONOCYTES % (AUTO) 1 % (2-9); NEUTROPHILS # (AUTO) 4.92 x10^3/uL (1.8-6.8); NEUTROPHILS % (AUTO) 84 % (42-75); PLATELET COUNT 468 x10^3/uL (130-400); RED BLOOD COUNT 3.14 x10^6/uL (4.38-5.82)
[2019-01-22 16:18] LABS: INTERNATIONAL NORMALIZED RATIO 1.15 (0.93-1.1)
[2019-01-22 16:20] LABS: ALANINE AMINOTRANSFERASE 20 U/L (12-78); ALBUMIN 3.1 g/dL (3.4-5.0); ANION GAP 11 mmol/L (5-15); CALCIUM 8.4 mg/dL (8.5-10.1); CHLORIDE 105 mmol/L (98-107); CREATININE 0.82 mg/dL (0.7-1.3)
[2019-01-22 16:23] LABS: ALKALINE PHOSPHATASE 204 U/L (45-117); BILIRUBIN,TOTAL 0.5 mg/dL (0.2-1.0); TOTAL PROTEIN 6.6 g/dL (6.4-8.2)
--- NOTE | 2019-01-22 16:35 | NUR ---
IV NS continues, client denies complaints or symptoms. "Just sleepy".
--- NOTE | 2019-01-22 17:03 | NUR ---
Pt reports he has a wound on his coccyx. Dr. Wilkerson at bedside to evaluate wound. Wound cleansed and redressed per order, pt tolerated well. Pt positioned for comfort in bed with pillows to offload weight from coccyx.
[2019-01-22] MEDS ORDERED: ONDANSETRON 2MG/ML, 2ML ONE (17:22)
--- NOTE | 2019-01-22 17:28 | NUR ---
Pt c/o nausea. Discussed with Dr. Wilkerson, orders received for zofran 4mg IVP. Pt medicated per order, denies other needs.
[2019-01-22] MEDS ORDERED: ONDANSETRON 2MG/ML, 2ML IVPush ONE (17:30)
[2019-01-22] MEDS ORDERED: TBO-FILGRASTIM 300 MCG/0.5 ML SQ ONE (18:00)
--- NOTE | 2019-01-22 18:08 | NUR ---
Pt medicated per MAR, denies other needs.
--- NOTE | 2019-01-22 18:22 | NUR ---
Report called to Ricci COPE on oncology. Floor ready for pt transport.
--- NOTE | 2019-01-22 19:00 | NUR ---
RECEIVED BS REPORT FROM ANATOLIY LILLY TO ASSUME PT. CARE. ADMITTING MD AT BS TO EVAL PT. FOR ADMISSION. PT. AWAITING TRANSPORT UPSTAIRS.
--- NOTE | 2019-01-22 19:27 | NUR ---
ADMITTING MD REMAINS AT BS TO EVAL PT. FOR ADMISSION. TECH AWATING TO TRANSPORT PT. UP WHEN EVAL COMPLETED.
[2019-01-22 19:44] VITALS: BP 103/68
[2019-01-22] MEDS ORDERED: ACETAMINOPHEN 325 MG TABLET PO PRN (20:00)
[2019-01-22] MEDS ORDERED: LIDODERM 5% PATCH TD PRN (20:00)
[2019-01-22] MEDS ORDERED: BISACODYL 10 MG SUPP PR PRN (20:00)
[2019-01-22] MEDS ORDERED: LABETALOL 5MG/ML, 20ML IVPush PRN (20:00)
[2019-01-22] MEDS ORDERED: METOCLOPRAMIDE 5 MG/ML, 2ML IVPush PRN (20:00)
[2019-01-22] MEDS: LORazepam 2 MG/ML, 1ML IVPush PRN (20:51)
[2019-01-22] MEDS: DRONABINOL 5 MG CAPSULE PO SCH (21:48)
[2019-01-22] MEDS: LACTOBACILLUS CHEW TABLET PO SCH (21:50)
[2019-01-22] MEDS ORDERED: HYDROmorphone 2MG TABLET PO PRN (22:00)
[2019-01-22] MEDS ORDERED: APIXABAN 5 MG TABLET PO SCH (22:00)
[2019-01-22] MEDS: ONDANSETRON 2MG/ML, 2ML IVPush PRN (23:54)
[2019-01-23] VITALS (7 sets, daily range): BP systolic 92–117; BP diastolic 60–75
[2019-01-23] MEDS: LORazepam 2 MG/ML, 1ML IVPush PRN ×3 (03:10→15:51)
[2019-01-23 03:44] LABS: MEAN CORPUSCULAR HEMOGLOBIN 29.5 pg (27.5-34.5); MEAN CORPUSCULAR HGB CONC 32.7 g/dL (33.2-36.2); MEAN CORPUSCULAR VOLUME 90.1 fL (81-97); MEAN PLATELET VOLUME 6.8 fL (7.4-10.4); PLATELET COUNT 330 x10^3/uL (130-400); RED BLOOD COUNT 2.73 x10^6/uL (4.38-5.82); RED CELL DISTRIBUTION WIDTH 18.5 % (9.4-14.8)
[2019-01-23 03:51] LABS: ANION GAP 8 mmol/L (5-15); CALCIUM 8.1 mg/dL (8.5-10.1); CHLORIDE 107 mmol/L (98-107)
[2019-01-23 04:23] LABS: BASOPHILS # (AUTO) 0.35 x10^3/uL (0-0.1); BASOPHILS % (AUTO) 2 % (0-1); EOSINOPHILS % (AUTO) 0 % (1-7); LYMPHOCYTES # (AUTO) 0.54 x10^3/uL (1-3.4); LYMPHOCYTES % (AUTO) 3 % (22-44); MD SCAN; MONOCYTES # (AUTO) 0.01 x10^3/uL (0.2-0.8); MONOCYTES % (AUTO) 0 % (2-9); NEUTROPHILS # (AUTO) 17.79 x10^3/uL (1.8-6.8); NEUTROPHILS % (AUTO) 95 % (42-75)
[2019-01-23] MEDS: D5%-0.45NACL+KCL 20MEQ 1,000 ML IV SCH ×3 (05:45→15:27)
[2019-01-23] MEDS ORDERED: ALENDRONATE 10 MG TABLET PO SCH (06:30)
[2019-01-23] MEDS ORDERED: APIXABAN 5 MG TABLET PO SCH (09:00)
[2019-01-23] MEDS ORDERED: MIDODRINE 5 MG TABLET PO SCH (09:00)
[2019-01-23] MEDS ORDERED: DESMOPRESSIN NASAL SPRAY 0.1MG/ML, 5ML NAS SCH (09:00)
[2019-01-23] MEDS: LACTOBACILLUS CHEW TABLET PO SCH (09:20)
[2019-01-23] MEDS: DRONABINOL 5 MG CAPSULE PO SCH (09:20)
[2019-01-23] MEDS ORDERED: POLYETHYLENE GLYCOL 17 GM PACKET PO SCH (11:00)
[2019-01-23] MEDS: ONDANSETRON 2MG/ML, 2ML IVPush PRN (15:50)
[2019-01-23] MEDS ORDERED: TBO-FILGRASTIM 300 MCG/0.5 ML SQ ONE (17:00)
== END 2019-01-23 18:12 | disposition home or self-care (01) | DRG 74 ==
LOC: ED 16:16 → EDIP 17:42 → OBSVTOIN 17:42 → EDIP 18:11 → 3NW 18:11
PROVIDERS: ADMIT Internal Medicine; ATTEND Internal Medicine
DX: G90.8 Other disorders of autonomic nervous system (principal); R64 Cachexia; E86.0 Dehydration; E86.1 Hypovolemia; F17.201 Nicotine dependence, unspecified, in remission; F41.9 Anxiety disorder, unspecified; K59.00 Constipation, unspecified; T45.1X5A Adverse effect of antineoplastic and immunosuppressive drugs, initial encounter; Z80.8 Family history of malignant neoplasm of other organs or systems; Z83.3 Family history of diabetes mellitus; Z85.47 Personal history of malignant neoplasm of testis; Z86.718 Personal history of other venous thrombosis and embolism; Z71.6 Tobacco abuse counseling
CPT/HCPCS: 36415; 80048; 80053; 83605; 83690; 83735; 85025; 85610; 93005; G0378; J2405; Q0167; J1447; J2060; J3480; J7030

== ENCOUNTER 2019-01-27 11:01 | Inpatient (IN) | payer MEDICAID ==
[2019-01-27] VITALS (10 sets, daily range): BP systolic 89–104; BP diastolic 50–62
[~2019-01-27] VITALS: Ht 193 cm; Wt 52.9 kg
[2019-01-27] MEDS ORDERED: SODIUM CHLORIDE FLUSH 10ML SYR IVF ONE (11:30)
[2019-01-27 11:57] LABS: ANION GAP 4 mmol/L (5-15); CALCIUM 8.2 mg/dL (8.5-10.1); CHLORIDE 103 mmol/L (98-107); CREATININE 0.55 mg/dL (0.7-1.3)
[2019-01-27] MEDS ORDERED: SODIUM CHLORIDE 0.9% 1,000ML IVBOLUS ONE (12:00)
[2019-01-27 12:05] LABS: INTERNATIONAL NORMALIZED RATIO 1.23 (0.93-1.1); PROTHROMBIN TIME 12.8 Seconds (9.6-11.5)
[2019-01-27 12:07] LABS: MEAN CORPUSCULAR HEMOGLOBIN 29.9 pg (27.5-34.5); MEAN CORPUSCULAR VOLUME 88.1 fL (81-97); MEAN PLATELET VOLUME 7.2 fL (7.4-10.4); PLATELET COUNT 51 x10^3/uL (130-400); RED BLOOD COUNT 2.16 x10^6/uL (4.38-5.82); RED CELL DISTRIBUTION WIDTH 17.9 % (9.4-14.8)
[2019-01-27 12:12] LABS: ALBUMIN 2.9 g/dL (3.4-5.0)
[2019-01-27] MEDS ORDERED: POTASSIUM CHLORIDE 20 MEQ TAB.ER.PRT PO ONE (12:30)
[2019-01-27] MEDS ORDERED: DIPHENHYDRAMINE 50 MG/ML, 1ML IVPush ONE (12:30)
[2019-01-27] MEDS ORDERED: DIPHENHYDRAMINE 50 MG/ML, 1ML ONE (12:39)
[2019-01-27] MEDS ORDERED: POTASSIUM CHLORIDE 20 MEQ TAB.ER.PRT ONE (12:40)
--- NOTE | 2019-01-27 12:53 | NUR ---
Meds admin. Blood consent signed. Patient and family updated on POC. Purple sheet sent to blood bank.
[2019-01-27 13:08] LABS: BASOPHILS # (AUTO) 0.01 x10^3/uL (0-0.1); BASOPHILS % (AUTO) 3 % (0-1); EOSINOPHILS % (AUTO) 1 % (1-7); LYMPHOCYTES # (AUTO) 0.34 x10^3/uL (1-3.4); LYMPHOCYTES % (AUTO) 60 % (22-44); MONOCYTES # (AUTO) 0.03 x10^3/uL (0.2-0.8); MONOCYTES % (AUTO) 5 % (2-9); NEUTROPHILS # (AUTO) 0.18 x10^3/uL (1.8-6.8); NEUTROPHILS % (AUTO) 32 % (42-75)
--- NOTE | 2019-01-27 13:23 | NUR ---
SBAR TO KADI COPE VIA TELEPHONE
[2019-01-27 13:36] LABS: MD SCAN
[2019-01-27] MEDS ORDERED: ACETAMINOPHEN 325 MG TABLET PO PRN (14:00)
[2019-01-27] MEDS ORDERED: POLYETHYLENE GLYCOL 17 GM PACKET PO PRN (14:00)
[2019-01-27] MEDS ORDERED: LORazepam 1MG TABLET ONE ×2 (14:31→23:52)
[2019-01-27] MEDS: HYDROmorphone 2MG TABLET PO PRN ×3 (14:33→23:56)
[2019-01-27] MEDS: LORazepam INTENSOL 2 MG/ML SL PRN ×2 (14:33→23:57)
[2019-01-27] MEDS: LACTOBACILLUS CHEW TABLET PO SCH ×2 (17:23→19:42)
[2019-01-27] MEDS: MIDODRINE 5 MG TABLET PO SCH (19:41)
[2019-01-27] MEDS: DRONABINOL 5 MG CAPSULE PO SCH (19:42)
[2019-01-27] MEDS ORDERED: CATHFLO-ALTEPLASE 2 MG/2 ML CATHFLUSH ONE ×2 (20:00→22:00)
[2019-01-27 20:55] LABS: MEAN CORPUSCULAR HEMOGLOBIN 29.1 pg (27.5-34.5); MEAN CORPUSCULAR HGB CONC 33.4 g/dL (33.2-36.2); MEAN PLATELET VOLUME 7.5 fL (7.4-10.4); RED BLOOD COUNT 2.54 x10^6/uL (4.38-5.82); RED CELL DISTRIBUTION WIDTH 16.3 % (9.4-14.8)
[2019-01-27 20:58] LABS: PLATELET COUNT 44 x10^3/uL (130-400)
[2019-01-27 21:27] LABS: MD YES
[2019-01-27 21:35] LABS: BAND#(MANUAL) 0.01 x10^3/uL; BANDS%(MANUAL) 2 % (0-7); LYMPH#(MANUAL) 0.45 x10^3/uL (1-3.4); LYMPHS% (MANUAL) 64 % (22-44); MONOS#(MANUAL) 0.03 x10^3/uL (0.3-2.7); MONOS% (MANUAL) 4 % (2-9); SEG#(MANUAL) 0.21 x10^3/uL (1.8-6.8); SEGS% (MANUAL) 30 % (42-75)
[2019-01-27 21:37] LABS: ANISOCYTOSIS 1+
[2019-01-27 21:38] LABS: <PLATELET ESTIMATE> DECREASED; <PLT MORPHOLOGY> NORMAL PLT MORPH; OVALOCYTES 1+
[2019-01-28] VITALS (10 sets, daily range): BP systolic 95–101; BP diastolic 58–65
[2019-01-28] MEDS: HYDROmorphone 2MG TABLET PO PRN ×5 (03:57→22:07)
[2019-01-28 05:18] LABS: ALANINE AMINOTRANSFERASE 14 U/L (12-78); ALBUMIN 2.6 g/dL (3.4-5.0); ANION GAP 4 mmol/L (5-15); CHLORIDE 107 mmol/L (98-107)
[2019-01-28 05:20] LABS: ALKALINE PHOSPHATASE 168 U/L (45-117); BILIRUBIN,TOTAL 0.8 mg/dL (0.2-1.0); TOTAL PROTEIN 5.4 g/dL (6.4-8.2)
[2019-01-28] MEDS: ALENDRONATE 10 MG TABLET PO SCH (06:09)
[2019-01-28 07:02] LABS: MEAN CORPUSCULAR HEMOGLOBIN 30.4 pg (27.5-34.5); MEAN CORPUSCULAR HGB CONC 35.4 g/dL (33.2-36.2); MEAN CORPUSCULAR VOLUME 85.9 fL (81-97); MEAN PLATELET VOLUME 7.9 fL (7.4-10.4); RED BLOOD COUNT 2.32 x10^6/uL (4.38-5.82); RED CELL DISTRIBUTION WIDTH 16.5 % (9.4-14.8)
[2019-01-28 07:06] LABS: PLATELET COUNT 37 x10^3/uL (130-400)
[2019-01-28 08:02] LABS: MD YES
[2019-01-28 08:10] LABS: ANISOCYTOSIS 1+; BAND#(MANUAL) 0.01 x10^3/uL; BANDS%(MANUAL) 1 % (0-7); LYMPH#(MANUAL) 0.47 x10^3/uL (1-3.4); LYMPHS% (MANUAL) 78 % (22-44); MONOS#(MANUAL) 0.03 x10^3/uL (0.3-2.7); MONOS% (MANUAL) 5 % (2-9); SEGS% (MANUAL) 16 % (42-75)
[2019-01-28 08:11] LABS: <PLATELET ESTIMATE> DECREASED; <PLT MORPHOLOGY> NORMAL PLT MORPH
[2019-01-28] MEDS: MIDODRINE 5 MG TABLET PO SCH ×2 (08:40→19:35)
[2019-01-28] MEDS: DRONABINOL 5 MG CAPSULE PO SCH ×3 (08:40→19:35)
[2019-01-28] MEDS: LACTOBACILLUS CHEW TABLET PO SCH ×3 (08:40→22:07)
[2019-01-28] MEDS: DESMOPRESSIN NASAL SPRAY 0.1MG/ML, 5ML NAS SCH (09:00)
[2019-01-28] MEDS ORDERED: ACETAMINOPHEN 325 MG TABLET PO ONE (11:00)
[2019-01-28] MEDS ORDERED: DIPHENHYDRAMINE 25 MG CAPSULE PO ONE (11:00)
[2019-01-28 14:09] LABS: MEAN CORPUSCULAR HEMOGLOBIN 30.3 pg (27.5-34.5); MEAN CORPUSCULAR HGB CONC 35.1 g/dL (33.2-36.2); MEAN CORPUSCULAR VOLUME 86.3 fL (81-97); MEAN PLATELET VOLUME 8.2 fL (7.4-10.4); RED BLOOD COUNT 2.27 x10^6/uL (4.38-5.82); RED CELL DISTRIBUTION WIDTH 16.1 % (9.4-14.8)
[2019-01-28 14:10] LABS: MD YES
[2019-01-28 14:11] LABS: PLATELET COUNT 25 x10^3/uL (130-400)
[2019-01-28 14:18] LABS: ANISOCYTOSIS 1+; LYMPH#(MANUAL) 0.65 x10^3/uL (1-3.4); LYMPHS% (MANUAL) 93 % (22-44); SEG#(MANUAL) 0.05 x10^3/uL (1.8-6.8); SEGS% (MANUAL) 7 % (42-75)
[2019-01-28 14:19] LABS: <PLATELET ESTIMATE> DECREASED; <PLT MORPHOLOGY> NORMAL PLT MORPH; MICROCYTOSIS 1+
[2019-01-28 15:19] LABS: OSMOLALITY,URINE 276 mOsm/kg (500-850)
[2019-01-28] MEDS: LORazepam INTENSOL 2 MG/ML SL PRN ×2 (15:45→22:07)
[2019-01-28 20:23] LABS: OCCULT BLOOD NEGATIVE (NEGATIVE)
[2019-01-28 20:44] LABS: MEAN CORPUSCULAR HEMOGLOBIN 29.8 pg (27.5-34.5); MEAN CORPUSCULAR HGB CONC 34.8 g/dL (33.2-36.2); MEAN CORPUSCULAR VOLUME 85.6 fL (81-97); MEAN PLATELET VOLUME 7.7 fL (7.4-10.4); RED BLOOD COUNT 2.76 x10^6/uL (4.38-5.82); RED CELL DISTRIBUTION WIDTH 16.1 % (9.4-14.8)
[2019-01-28 20:46] LABS: PLATELET COUNT 26 x10^3/uL (130-400)
[2019-01-28 21:00] LABS: MD YES
[2019-01-28 21:12] LABS: ANISOCYTOSIS 1+; BAND#(MANUAL) 0.01 x10^3/uL; BANDS%(MANUAL) 2 % (0-7); LYMPH#(MANUAL) 0.47 x10^3/uL (1-3.4); LYMPHS% (MANUAL) 79 % (22-44); MONOS#(MANUAL) 0.05 x10^3/uL (0.3-2.7); MONOS% (MANUAL) 9 % (2-9); NRBC % (MANUAL) 1 % (0-1); SEG#(MANUAL) 0.06 x10^3/uL (1.8-6.8); SEGS% (MANUAL) 10 % (42-75)
[2019-01-28 21:13] LABS: <PLATELET ESTIMATE> DECREASED; <PLT MORPHOLOGY> NORMAL PLT MORPH
[2019-01-28] MEDS ORDERED: TBO-FILGRASTIM 300 MCG/0.5 ML SQ ONE (21:30)
[2019-01-29] VITALS (7 sets, daily range): BP systolic 97–100; BP diastolic 61–66
[2019-01-29] MEDS: HYDROmorphone 2MG TABLET PO PRN ×4 (02:14→21:12)
[2019-01-29 04:56] LABS: ABSOLUTE RETICS # 0.014 x10^6/uL (0.5-1.5); RETICULOCYTE COUNT % 0.55 % (0.5-1.5)
[2019-01-29 05:00] LABS: ALANINE AMINOTRANSFERASE 11 U/L (12-78); ALBUMIN 2.5 g/dL (3.4-5.0); ANION GAP 6 mmol/L (5-15); CHLORIDE 107 mmol/L (98-107); CREATININE 0.36 mg/dL (0.7-1.3)
[2019-01-29 05:05] LABS: ALKALINE PHOSPHATASE 169 U/L (45-117); BILIRUBIN,TOTAL 0.7 mg/dL (0.2-1.0); TOTAL PROTEIN 5.4 g/dL (6.4-8.2)
[2019-01-29 05:51] LABS: MEAN CORPUSCULAR HEMOGLOBIN 28.5 pg (27.5-34.5); MEAN CORPUSCULAR HGB CONC 33.2 g/dL (33.2-36.2); MEAN CORPUSCULAR VOLUME 85.9 fL (81-97); MEAN PLATELET VOLUME 8.9 fL (7.4-10.4); RED BLOOD COUNT 2.63 x10^6/uL (4.38-5.82); RED CELL DISTRIBUTION WIDTH 15.5 % (9.4-14.8)
[2019-01-29 05:52] LABS: PLATELET COUNT 23 x10^3/uL (130-400)
[2019-01-29 05:53] LABS: MD YES
[2019-01-29 06:00] LABS: BAND#(MANUAL) 0.01 x10^3/uL; BANDS%(MANUAL) 1 % (0-7); BASOS#(MANUAL) 0.01 x10^3/uL (0-0.1); BASOS% (MANUAL) 1 % (0-1); EOS#(MANUAL) 0.01 x10^3/uL (0.0-0.4); EOS% (MANUAL) 2 % (1-7); LYMPH#(MANUAL) 0.44 x10^3/uL (1-3.4); LYMPHS% (MANUAL) 74 % (22-44); MONOS#(MANUAL) 0.06 x10^3/uL (0.3-2.7); MONOS% (MANUAL) 10 % (2-9); SEG#(MANUAL) 0.07 x10^3/uL (1.8-6.8); SEGS% (MANUAL) 12 % (42-75)
[2019-01-29 06:01] LABS: <PLATELET ESTIMATE> DECREASED; <PLT MORPHOLOGY> NORMAL PLT MORPH; ANISOCYTOSIS 1+
[2019-01-29] MEDS: ALENDRONATE 10 MG TABLET PO SCH (06:20)
[2019-01-29 06:23] LABS: RED BLOOD COUNT 2.63 x10^6/uL (4.38-5.82)
[2019-01-29] MEDS: DESMOPRESSIN NASAL SPRAY 0.1MG/ML, 5ML NAS SCH (09:00)
[2019-01-29] MEDS: DRONABINOL 5 MG CAPSULE PO SCH ×2 (09:28→20:26)
[2019-01-29] MEDS: MIDODRINE 5 MG TABLET PO SCH ×2 (09:28→20:26)
[2019-01-29] MEDS: LACTOBACILLUS CHEW TABLET PO SCH ×3 (09:29→20:26)
[2019-01-29] MEDS: LORazepam INTENSOL 2 MG/ML SL PRN ×2 (10:24→15:06)
[2019-01-29] MEDS ORDERED: POTASSIUM CHLORIDE 20 MEQ TAB.ER.PRT PO ONE (11:30)
[2019-01-29 15:10] LABS: BASOPHILS # (AUTO) 0.01 x10^3/uL (0-0.1); BASOPHILS % (AUTO) 1 % (0-1); EOSINOPHILS # (AUTO) 0.01 x10^3/uL (0-0.4); EOSINOPHILS % (AUTO) 1 % (1-7); LYMPHOCYTES # (AUTO) 0.44 x10^3/uL (1-3.4); LYMPHOCYTES % (AUTO) 52 % (22-44); MD NO; MEAN CORPUSCULAR HEMOGLOBIN 29.9 pg (27.5-34.5); MEAN CORPUSCULAR HGB CONC 34.5 g/dL (33.2-36.2); MEAN CORPUSCULAR VOLUME 86.5 fL (81-97); MONOCYTES # (AUTO) 0.11 x10^3/uL (0.2-0.8); MONOCYTES % (AUTO) 13 % (2-9); NEUTROPHILS # (AUTO) 0.28 x10^3/uL (1.8-6.8); NEUTROPHILS % (AUTO) 33 % (42-75); RED BLOOD COUNT 2.65 x10^6/uL (4.38-5.82); RED CELL DISTRIBUTION WIDTH 15.9 % (9.4-14.8)
[2019-01-29 15:11] LABS: MEAN PLATELET VOLUME 8.7 fL (7.4-10.4)
[2019-01-29 15:15] LABS: PLATELET COUNT 14 x10^3/uL (130-400)
[2019-01-29] MEDS ORDERED: DIPHENHYDRAMINE 25 MG CAPSULE PO ONE (17:30)
[2019-01-29] MEDS ORDERED: ACETAMINOPHEN 325 MG TABLET PO ONE (17:30)
[2019-01-29] MEDS: TBO-FILGRASTIM 300 MCG/0.5 ML SQ SCH (22:07)
[2019-01-30] MEDS: LORazepam INTENSOL 2 MG/ML SL PRN ×3 (03:04→22:46)
[2019-01-30 03:10] VITALS: BP 98/62
[2019-01-30] MEDS: HYDROmorphone 2MG TABLET PO PRN ×3 (04:48→21:06)
[2019-01-30 05:21] LABS: ALANINE AMINOTRANSFERASE 14 U/L (12-78); ALBUMIN 2.6 g/dL (3.4-5.0); ANION GAP 5 mmol/L (5-15); CALCIUM 8.7 mg/dL (8.5-10.1); CHLORIDE 109 mmol/L (98-107); CREATININE 0.38 mg/dL (0.7-1.3)
[2019-01-30 05:22] LABS: MEAN CORPUSCULAR HEMOGLOBIN 30.5 pg (27.5-34.5); MEAN CORPUSCULAR HGB CONC 35.2 g/dL (33.2-36.2); MEAN CORPUSCULAR VOLUME 86.4 fL (81-97); RED BLOOD COUNT 2.52 x10^6/uL (4.38-5.82); RED CELL DISTRIBUTION WIDTH 16.2 % (9.4-14.8)
[2019-01-30 05:23] LABS: ALKALINE PHOSPHATASE 158 U/L (45-117); BILIRUBIN,TOTAL 0.6 mg/dL (0.2-1.0); TOTAL PROTEIN 5.5 g/dL (6.4-8.2)
[2019-01-30 05:54] LABS: MD YES; MEAN PLATELET VOLUME 8.1 fL (7.4-10.4)
[2019-01-30 05:58] LABS: MONOS#(MANUAL) 0.08 x10^3/uL (0.3-2.7); MONOS% (MANUAL) 7 % (2-9)
[2019-01-30 05:59] LABS: <PLATELET ESTIMATE> DECREASED; ANISOCYTOSIS 1+; BANDS%(MANUAL) 8 % (0-7); LYMPHS% (MANUAL) 42 % (22-44); PLATELET COUNT 28 x10^3/uL (130-400); SEG#(MANUAL) 0.52 x10^3/uL (1.8-6.8); SEGS% (MANUAL) 43 % (42-75)
[2019-01-30 06:00] LABS: <PLT MORPHOLOGY> NORMAL PLT MORPH; TOXIC GRAN 1+
[2019-01-30] MEDS: ALENDRONATE 10 MG TABLET PO SCH (06:34)
[2019-01-30] MEDS ORDERED: POTASSIUM CHLORIDE 60 MEQ in SODIUM CHLORIDE 0.9% 1,000 ML IV ONE (07:30)
[2019-01-30] MEDS: DRONABINOL 5 MG CAPSULE PO SCH ×2 (08:05→21:05)
[2019-01-30] MEDS: LACTOBACILLUS CHEW TABLET PO SCH ×3 (08:06→21:05)
[2019-01-30] MEDS: MIDODRINE 5 MG TABLET PO SCH ×2 (08:06→21:06)
[2019-01-30] MEDS: DESMOPRESSIN NASAL SPRAY 0.1MG/ML, 5ML NAS SCH (09:00)
[2019-01-30 09:02] VITALS: BP 97/52
[2019-01-30] MEDS ORDERED: MAGNESIUM SULFATE PMX 4GM/100M 100 ML IV ONE (09:30)
[2019-01-30 15:00] VITALS: BP 92/56
[2019-01-30 19:31] VITALS: BP 95/66
[2019-01-30] MEDS: TBO-FILGRASTIM 300 MCG/0.5 ML SQ SCH (22:13)
[2019-01-31 03:53] VITALS: BP 93/58
[2019-01-31] MEDS: ALENDRONATE 10 MG TABLET PO SCH (06:07)
[2019-01-31] MEDS: HYDROmorphone 2MG TABLET PO PRN (06:11)
[2019-01-31 06:31] LABS: ALBUMIN 2.6 g/dL (3.4-5.0); ANION GAP 6 mmol/L (5-15); CALCIUM 8.2 mg/dL (8.5-10.1); CHLORIDE 110 mmol/L (98-107)
[2019-01-31 06:35] LABS: ALANINE AMINOTRANSFERASE 13 U/L (12-78); ALKALINE PHOSPHATASE 157 U/L (45-117); BILIRUBIN,TOTAL 0.5 mg/dL (0.2-1.0); CREATININE 0.32 mg/dL (0.7-1.3); TOTAL PROTEIN 5.3 g/dL (6.4-8.2)
[2019-01-31] MEDS: LACTOBACILLUS CHEW TABLET PO SCH (08:40)
[2019-01-31] MEDS: DESMOPRESSIN NASAL SPRAY 0.1MG/ML, 5ML NAS SCH (08:40)
[2019-01-31] MEDS: TBO-FILGRASTIM 300 MCG/0.5 ML SQ SCH (08:41)
[2019-01-31] MEDS: MIDODRINE 5 MG TABLET PO SCH (08:41)
[2019-01-31] MEDS: DRONABINOL 5 MG CAPSULE PO SCH (08:41)
[2019-01-31 08:45] VITALS: BP 100/60
[2019-01-31 08:52] LABS: MEAN CORPUSCULAR HEMOGLOBIN 29.6 pg (27.5-34.5); MEAN CORPUSCULAR HGB CONC 33.7 g/dL (33.2-36.2); MEAN CORPUSCULAR VOLUME 87.8 fL (81-97); MEAN PLATELET VOLUME 8.4 fL (7.4-10.4); RED BLOOD COUNT 2.59 x10^6/uL (4.38-5.82); RED CELL DISTRIBUTION WIDTH 15.8 % (9.4-14.8)
[2019-01-31 08:53] LABS: PLATELET COUNT 22 x10^3/uL (130-400)
[2019-01-31 08:54] LABS: MD YES
[2019-01-31 08:57] LABS: ANISOCYTOSIS 1+; BAND#(MANUAL) 0.03 x10^3/uL; BANDS%(MANUAL) 1 % (0-7); BASOS#(MANUAL) 0.05 x10^3/uL (0-0.1); BASOS% (MANUAL) 2 % (0-1); LYMPH#(MANUAL) 0.89 x10^3/uL (1-3.4); LYMPHS% (MANUAL) 33 % (22-44); METAMYELOCYTES# (MANUAL) 0.03 x10^3/uL (0-0); METAMYELOCYTES% (MANUAL) 1 % (0-1); MONOS#(MANUAL) 0.11 x10^3/uL (0.3-2.7); MONOS% (MANUAL) 4 % (2-9); SEG#(MANUAL) 1.59 x10^3/uL (1.8-6.8); SEGS% (MANUAL) 59 % (42-75)
[2019-01-31 08:58] LABS: TOXIC GRAN 1+
[2019-01-31 09:01] LABS: <PLATELET ESTIMATE> DECREASED; <PLT MORPHOLOGY> NORMAL PLT MORPH
[2019-01-31 12:53] VITALS: BP 98/62
== END 2019-01-31 14:12 | disposition home or self-care (01) | DRG 809 ==
LOC: ED 11:43 → EDIP 13:00 → 3NW 13:37
PROVIDERS: ADMIT Hospitalist; ATTEND Hospitalist
PROC: 30233N1 Transfusion of Nonautologous Red Blood Cells into Peripheral Vein, Percutaneous Approach (ICD-10-PCS; principal; 2019-01-27)
PROC: 30233R1 Transfusion of Nonautologous Platelets into Peripheral Vein, Percutaneous Approach (ICD-10-PCS; 2019-01-29)
DX: D61.810 Antineoplastic chemotherapy induced pancytopenia (principal); C79.49 Secondary malignant neoplasm of other parts of nervous system; C79.51 Secondary malignant neoplasm of bone; C78.7 Secondary malignant neoplasm of liver and intrahepatic bile duct; E23.2 Diabetes insipidus; C62.92 Malignant neoplasm of left testis, unspecified whether descended or undescended; I95.9 Hypotension, unspecified; C62.90 Malignant neoplasm of unspecified testis, unspecified whether descended or undescended; E83.42 Hypomagnesemia; E86.0 Dehydration; E87.6 Hypokalemia; F41.9 Anxiety disorder, unspecified; G89.29 Other chronic pain; G93.9 Disorder of brain, unspecified; I10 Essential (primary) hypertension; K59.00 Constipation, unspecified; T45.1X5A Adverse effect of antineoplastic and immunosuppressive drugs, initial encounter; Z79.01 Long term (current) use of anticoagulants; Z85.47 Personal history of malignant neoplasm of testis; Z86.718 Personal history of other venous thrombosis and embolism; Z87.891 Personal history of nicotine dependence
CPT/HCPCS: 36415; 36430; 80048; 80053; 81050; 82040; 82105; 82272; 82570; 82728; 83605; 83615; 83735; 83935; 84702; 85025; 85045; 85610; 86850; 86900; 86923; 96374; G0378; J2997; J3480; Q0167; J1200; J1447; J3475; J7030; P9037; P9040; Q0163

== ENCOUNTER 2019-02-07 08:14 | Inpatient (IN) | payer MEDICAID ==
[~2019-02-07] VITALS: Ht 193 cm; Wt 64.0 kg
[2019-02-07 09:08] VITALS: BP 96/68
[2019-02-07] MEDS ORDERED: APIX5TAB PO (09:19)
[2019-02-07 10:41] LABS: MICROSCOPIC INDICATED
[2019-02-07 10:43] LABS: BASOPHILS # (AUTO) 0.01 x10^3/uL (0-0.1); BASOPHILS % (AUTO) 0 % (0-1); EOSINOPHILS # (AUTO) 0.02 x10^3/uL (0-0.4); EOSINOPHILS % (AUTO) 0 % (1-7); LYMPHOCYTES # (AUTO) 0.96 x10^3/uL (1-3.4); LYMPHOCYTES % (AUTO) 9 % (22-44); MD NO; MEAN CORPUSCULAR HEMOGLOBIN 30.7 pg (27.5-34.5); MEAN CORPUSCULAR HGB CONC 34.1 g/dL (33.2-36.2); MEAN PLATELET VOLUME 7.6 fL (7.4-10.4); MONOCYTES # (AUTO) 0.45 x10^3/uL (0.2-0.8); MONOCYTES % (AUTO) 4 % (2-9); NEUTROPHILS # (AUTO) 9.17 x10^3/uL (1.8-6.8); NEUTROPHILS % (AUTO) 86 % (42-75); PLATELET COUNT 223 x10^3/uL (130-400); RED BLOOD COUNT 3.29 x10^6/uL (4.38-5.82); RED CELL DISTRIBUTION WIDTH 19.4 % (9.4-14.8)
[2019-02-07 11:25] LABS: ALBUMIN 3.3 g/dL (3.4-5.0); ANION GAP 4 mmol/L (5-15); CALCIUM 8.7 mg/dL (8.5-10.1); CHLORIDE 104 mmol/L (98-107)
[2019-02-07 11:29] LABS: ALANINE AMINOTRANSFERASE 17 U/L (12-78); ALKALINE PHOSPHATASE 186 U/L (45-117); BILIRUBIN,TOTAL 0.5 mg/dL (0.2-1.0); CREATININE 0.53 mg/dL (0.7-1.3); TOTAL PROTEIN 6.6 g/dL (6.4-8.2)
[2019-02-07] MEDS ORDERED: SODIUM CHLORIDE 0.9% 1,000 ML IV SCH (12:37)
[2019-02-07 12:52] VITALS: BP 96/60
[2019-02-07] MEDS: SENNA/DOCUSATE TABLET PO SCH (13:00)
[2019-02-07] MEDS ORDERED: hydrALAzine 20 MG/ML, 1ML IVPush PRN (13:00)
[2019-02-07] MEDS ORDERED: BISACODYL 10 MG SUPP PR PRN (13:00)
[2019-02-07] MEDS ORDERED: ACETAMINOPHEN 325 MG TABLET PO PRN (13:00)
[2019-02-07] MEDS ORDERED: LABETALOL 5 MG/ML SYRINGE IVPush PRN (13:00)
[2019-02-07] MEDS ORDERED: POLYETHYLENE GLYCOL 17 GM PACKET PO PRN (13:00)
[2019-02-07 13:15] LABS: THYROID STIMULATING HORMONE 0.612 mIU/L (0.358-3.740)
[2019-02-07] MEDS: DOCUSATE 100 MG CAPSULE PO PRN (13:29)
[2019-02-07] MEDS: SODIUM CHLORIDE 0.9% IV SCH ×4 (15:39→22:38)
[2019-02-07] MEDS: POTASSIUM CHLORIDE IV SCH (15:39)
[2019-02-07] MEDS: MAGNESIUM SULFATE IV SCH (15:39)
[2019-02-07] MEDS: ONDANSETRON 16 MG, DEXAMETHASONE 10 MG in SODIUM CHLORIDE 0.9% 50 ML IVPB SCH (15:39)
[2019-02-07] MEDS ORDERED: FOSAPREPITANT 150 MG in SODIUM CHLORIDE 0.9% 145 ML IV ONE (16:00)
[2019-02-07] MEDS: LACTOBACILLUS CHEW TABLET PO SCH ×2 (16:27→20:34)
[2019-02-07] MEDS ORDERED: LORazepam 1MG TABLET ONE (17:21)
[2019-02-07] MEDS: CISPLATIN IV SCH (17:26)
[2019-02-07] MEDS ORDERED: LORazepam 1MG TABLET PO ONE (17:30)
[2019-02-07 19:27] VITALS: BP 98/55
[2019-02-07] MEDS ORDERED: MESNA IVPB ONE (19:30)
[2019-02-07] MEDS ORDERED: SODIUM CHLORIDE 0.9% IVPB ONE (19:30)
[2019-02-07] MEDS: ETOPOSIDE IV SCH (19:50)
[2019-02-07] MEDS: MIDODRINE 5 MG TABLET PO SCH (20:34)
[2019-02-07] MEDS: APIXABAN 5 MG TABLET PO SCH (20:35)
[2019-02-07] MEDS: MESNA IVPB SCH (21:38)
[2019-02-07] MEDS: SODIUM CHLORIDE 0.9% IVPB SCH (21:38)
[2019-02-07] MEDS: IFOSFAMIDE IV SCH (22:38)
[2019-02-07 23:07] LABS: MICROSCOPIC NOT IND
[2019-02-08 01:28] VITALS: BP 95/55
[2019-02-08] MEDS: SODIUM CHLORIDE 0.9% IV SCH ×5 (01:41→22:06)
[2019-02-08] MEDS: POTASSIUM CHLORIDE IV SCH ×2 (01:41→15:21)
[2019-02-08] MEDS: MAGNESIUM SULFATE IV SCH ×2 (01:41→15:21)
[2019-02-08 05:33] LABS: MEAN CORPUSCULAR HEMOGLOBIN 30.4 pg (27.5-34.5); MEAN CORPUSCULAR HGB CONC 33.9 g/dL (33.2-36.2); MEAN CORPUSCULAR VOLUME 89.7 fL (81-97); MEAN PLATELET VOLUME 7.3 fL (7.4-10.4); PLATELET COUNT 222 x10^3/uL (130-400); RED BLOOD COUNT 2.85 x10^6/uL (4.38-5.82); RED CELL DISTRIBUTION WIDTH 18.9 % (9.4-14.8)
[2019-02-08 05:41] LABS: ANION GAP 6 mmol/L (5-15); CALCIUM 8.5 mg/dL (8.5-10.1); CHLORIDE 110 mmol/L (98-107)
[2019-02-08 05:50] LABS: ALANINE AMINOTRANSFERASE 14 U/L (12-78); ALBUMIN 2.8 g/dL (3.4-5.0); ALKALINE PHOSPHATASE 162 U/L (45-117); BILIRUBIN,TOTAL 0.5 mg/dL (0.2-1.0); CREATININE 0.42 mg/dL (0.7-1.3); TOTAL PROTEIN 5.9 g/dL (6.4-8.2)
[2019-02-08 06:01] LABS: BASOPHILS # (AUTO) 0.13 x10^3/uL (0-0.1); BASOPHILS % (AUTO) 3 % (0-1); EOSINOPHILS % (AUTO) 0 % (1-7); LYMPHOCYTES # (AUTO) 0.57 x10^3/uL (1-3.4); LYMPHOCYTES % (AUTO) 13 % (22-44); MD SCAN; MONOCYTES # (AUTO) 0.05 x10^3/uL (0.2-0.8); MONOCYTES % (AUTO) 1 % (2-9); NEUTROPHILS # (AUTO) 3.61 x10^3/uL (1.8-6.8); NEUTROPHILS % (AUTO) 83 % (42-75)
[2019-02-08] MEDS: ALENDRONATE 10 MG TABLET PO SCH (06:26)
[2019-02-08 08:00] VITALS: BP 90/57
[2019-02-08] MEDS: SENNA/DOCUSATE TABLET PO SCH (10:32)
[2019-02-08] MEDS: LACTOBACILLUS CHEW TABLET PO SCH ×3 (10:32→20:19)
[2019-02-08] MEDS: MIDODRINE 5 MG TABLET PO SCH ×2 (10:32→20:20)
[2019-02-08] MEDS: APIXABAN 5 MG TABLET PO SCH ×2 (10:32→20:20)
[2019-02-08] MEDS ORDERED: LORazepam 1MG TABLET PO PRN (11:30)
[2019-02-08] MEDS ORDERED: LORA-446 PO (11:41)
[2019-02-08] MEDS: LORazepam 1MG TABLET PO PRN ×2 (12:59→22:10)
[2019-02-08 14:33] VITALS: BP 96/56
[2019-02-08] MEDS: ONDANSETRON 16 MG, DEXAMETHASONE 10 MG in SODIUM CHLORIDE 0.9% 50 ML IVPB SCH (16:08)
[2019-02-08] MEDS: CISPLATIN IV SCH (16:54)
[2019-02-08] MEDS: HYDROmorphone 2MG TABLET PO PRN (17:23)
[2019-02-08 18:39] LABS: MICROSCOPIC NOT IND
[2019-02-08 19:13] LABS: CULTURE INDICATED? NO
[2019-02-08 19:47] VITALS: BP 101/61
[2019-02-08] MEDS: ETOPOSIDE IV SCH (20:03)
[2019-02-08] MEDS: DRONABINOL 5 MG CAPSULE PO SCH (20:19)
[2019-02-08] MEDS: DOCUSATE 100 MG CAPSULE PO PRN (21:13)
[2019-02-08] MEDS: IFOSFAMIDE IV SCH (22:06)
[2019-02-09 00:31] VITALS: BP 97/60
[2019-02-09] MEDS: SODIUM CHLORIDE 0.9% IV SCH ×6 (02:01→22:40)
[2019-02-09] MEDS: MAGNESIUM SULFATE IV SCH ×3 (02:01→22:40)
[2019-02-09] MEDS: POTASSIUM CHLORIDE IV SCH ×3 (02:01→22:40)
[2019-02-09] MEDS: MESNA IVPB SCH ×2 (02:59→23:40)
[2019-02-09] MEDS: SODIUM CHLORIDE 0.9% IVPB SCH ×2 (02:59→23:40)
[2019-02-09 06:05] LABS: BASOPHILS # (AUTO) 0.04 x10^3/uL (0-0.1); BASOPHILS % (AUTO) 1 % (0-1); EOSINOPHILS % (AUTO) 0 % (1-7); LYMPHOCYTES # (AUTO) 0.76 x10^3/uL (1-3.4); LYMPHOCYTES % (AUTO) 17 % (22-44); MD NO; MEAN CORPUSCULAR HEMOGLOBIN 30.4 pg (27.5-34.5); MEAN CORPUSCULAR HGB CONC 33.7 g/dL (33.2-36.2); MEAN CORPUSCULAR VOLUME 90.3 fL (81-97); MEAN PLATELET VOLUME 7.4 fL (7.4-10.4); MONOCYTES # (AUTO) 0.28 x10^3/uL (0.2-0.8); MONOCYTES % (AUTO) 6 % (2-9); NEUTROPHILS # (AUTO) 3.43 x10^3/uL (1.8-6.8); NEUTROPHILS % (AUTO) 76 % (42-75); PLATELET COUNT 213 x10^3/uL (130-400); RED BLOOD COUNT 2.58 x10^6/uL (4.38-5.82); RED CELL DISTRIBUTION WIDTH 20.5 % (9.4-14.8)
[2019-02-09 06:11] LABS: ALBUMIN 2.5 g/dL (3.4-5.0); CHLORIDE 113 mmol/L (98-107)
[2019-02-09 06:16] LABS: ALANINE AMINOTRANSFERASE 11 U/L (12-78); ALKALINE PHOSPHATASE 139 U/L (45-117); ANION GAP 6 mmol/L (5-15); BILIRUBIN,TOTAL 0.2 mg/dL (0.2-1.0); CREATININE 0.41 mg/dL (0.7-1.3); TOTAL PROTEIN 5.3 g/dL (6.4-8.2)
[2019-02-09] MEDS: ALENDRONATE 10 MG TABLET PO SCH (06:24)
[2019-02-09] MEDS: SENNA/DOCUSATE TABLET PO SCH (07:28)
[2019-02-09] MEDS: DRONABINOL 5 MG CAPSULE PO SCH ×2 (07:28→20:53)
[2019-02-09] MEDS: MIDODRINE 5 MG TABLET PO SCH ×2 (07:29→20:53)
[2019-02-09 07:31] VITALS: BP 93/59
[2019-02-09 07:58] LABS: MICROSCOPIC NOT IND
[2019-02-09] MEDS: APIXABAN 5 MG TABLET PO SCH ×2 (10:14→20:53)
[2019-02-09] MEDS: LACTOBACILLUS CHEW TABLET PO SCH ×3 (10:14→20:53)
[2019-02-09] MEDS: LORazepam 1MG TABLET PO PRN ×3 (11:05→23:49)
[2019-02-09 13:31] VITALS: BP 107/63
[2019-02-09] MEDS: HYDROmorphone 2MG TABLET PO PRN ×2 (15:34→19:30)
[2019-02-09] MEDS: ONDANSETRON 16 MG, DEXAMETHASONE 10 MG in SODIUM CHLORIDE 0.9% 50 ML IVPB SCH (16:00)
[2019-02-09] MEDS: CISPLATIN IV SCH (16:43)
[2019-02-09 18:48] VITALS: BP 101/64
[2019-02-09] MEDS: ETOPOSIDE IV SCH (19:41)
[2019-02-09] MEDS ORDERED: IFOSFAMIDE IV SCH (20:00)
[2019-02-09] MEDS ORDERED: SODIUM CHLORIDE 0.9% IV SCH (20:00)
[2019-02-09] MEDS: DOCUSATE 100 MG CAPSULE PO PRN (20:53)
[2019-02-09] MEDS: IFOSFAMIDE IV SCH (21:36)
[2019-02-10 00:35] VITALS: BP 100/59
[2019-02-10] MEDS: ALENDRONATE 10 MG TABLET PO SCH (06:18)
[2019-02-10 06:32] LABS: BASOPHILS # (AUTO) 0.02 x10^3/uL (0-0.1); BASOPHILS % (AUTO) 1 % (0-1); EOSINOPHILS % (AUTO) 0 % (1-7); LYMPHOCYTES # (AUTO) 0.85 x10^3/uL (1-3.4); LYMPHOCYTES % (AUTO) 23 % (22-44); MD NO; MEAN CORPUSCULAR HEMOGLOBIN 30.2 pg (27.5-34.5); MEAN CORPUSCULAR HGB CONC 32.7 g/dL (33.2-36.2); MEAN CORPUSCULAR VOLUME 92.4 fL (81-97); MONOCYTES # (AUTO) 0.18 x10^3/uL (0.2-0.8); MONOCYTES % (AUTO) 5 % (2-9); NEUTROPHILS # (AUTO) 2.66 x10^3/uL (1.8-6.8); NEUTROPHILS % (AUTO) 72 % (42-75); PLATELET COUNT 253 x10^3/uL (130-400)
[2019-02-10 06:42] LABS: ALANINE AMINOTRANSFERASE 10 U/L (12-78); ALBUMIN 2.5 g/dL (3.4-5.0); ANION GAP 5 mmol/L (5-15); CALCIUM 8.2 mg/dL (8.5-10.1); CHLORIDE 113 mmol/L (98-107); CREATININE 0.42 mg/dL (0.7-1.3)
[2019-02-10 06:45] LABS: ALKALINE PHOSPHATASE 135 U/L (45-117); BILIRUBIN,TOTAL 0.2 mg/dL (0.2-1.0); TOTAL PROTEIN 5.4 g/dL (6.4-8.2)
[2019-02-10] MEDS: LORazepam 1MG TABLET PO PRN ×3 (07:48→21:13)
[2019-02-10 08:00] VITALS: BP 107/69
[2019-02-10] MEDS: LACTOBACILLUS CHEW TABLET PO SCH ×3 (09:26→20:13)
[2019-02-10] MEDS: SENNA/DOCUSATE TABLET PO SCH (09:26)
[2019-02-10] MEDS: DRONABINOL 5 MG CAPSULE PO SCH ×2 (09:26→20:13)
[2019-02-10] MEDS: APIXABAN 5 MG TABLET PO SCH ×2 (09:26→20:13)
[2019-02-10] MEDS: MIDODRINE 5 MG TABLET PO SCH ×2 (09:27→20:13)
[2019-02-10] MEDS: POTASSIUM CHLORIDE IV SCH ×2 (10:23→20:03)
[2019-02-10] MEDS: MAGNESIUM SULFATE IV SCH ×2 (10:23→20:03)
[2019-02-10] MEDS: SODIUM CHLORIDE 0.9% IV SCH ×5 (10:23→21:42)
[2019-02-10] MEDS: PROCHLORPERAZINE 5 MG/ML, 2ML IV PRN ×2 (11:30→18:18)
[2019-02-10 13:26] LABS: MICROSCOPIC NOT IND
[2019-02-10 14:29] VITALS: BP 108/66
[2019-02-10] MEDS: ONDANSETRON 16 MG, DEXAMETHASONE 10 MG in SODIUM CHLORIDE 0.9% 50 ML IVPB SCH (15:21)
[2019-02-10] MEDS: CISPLATIN IV SCH (16:40)
[2019-02-10 19:40] VITALS: BP 106/64
[2019-02-10] MEDS: ETOPOSIDE IV SCH (19:56)
[2019-02-10] MEDS: HYDROmorphone 2MG TABLET PO PRN (20:26)
[2019-02-10] MEDS: SODIUM CHLORIDE 0.9% IVPB SCH (21:40)
[2019-02-10] MEDS: MESNA IVPB SCH (21:40)
[2019-02-10] MEDS: IFOSFAMIDE IV SCH (21:42)
[2019-02-11 01:51] VITALS: BP 111/64
[2019-02-11] MEDS: POTASSIUM CHLORIDE IV SCH ×2 (05:59→15:14)
[2019-02-11] MEDS: ALENDRONATE 10 MG TABLET PO SCH (05:59)
[2019-02-11] MEDS: SODIUM CHLORIDE 0.9% IV SCH ×5 (05:59→21:37)
[2019-02-11] MEDS: MAGNESIUM SULFATE IV SCH ×2 (05:59→15:14)
[2019-02-11] MEDS: LORazepam 1MG TABLET PO PRN ×3 (06:11→20:58)
[2019-02-11] MEDS: PROCHLORPERAZINE 5 MG/ML, 2ML IV PRN ×3 (06:16→18:43)
[2019-02-11 06:32] LABS: BASOPHILS # (AUTO) 0.02 x10^3/uL (0-0.1); BASOPHILS % (AUTO) 1 % (0-1); EOSINOPHILS % (AUTO) 0 % (1-7); LYMPHOCYTES # (AUTO) 0.82 x10^3/uL (1-3.4); LYMPHOCYTES % (AUTO) 24 % (22-44); MD NO; MEAN CORPUSCULAR HEMOGLOBIN 30.8 pg (27.5-34.5); MEAN CORPUSCULAR HGB CONC 33.3 g/dL (33.2-36.2); MEAN CORPUSCULAR VOLUME 92.5 fL (81-97); MEAN PLATELET VOLUME 7.2 fL (7.4-10.4); MONOCYTES # (AUTO) 0.07 x10^3/uL (0.2-0.8); MONOCYTES % (AUTO) 2 % (2-9); NEUTROPHILS # (AUTO) 2.48 x10^3/uL (1.8-6.8); NEUTROPHILS % (AUTO) 73 % (42-75); PLATELET COUNT 304 x10^3/uL (130-400); RED BLOOD COUNT 2.85 x10^6/uL (4.38-5.82); RED CELL DISTRIBUTION WIDTH 20.6 % (9.4-14.8)
[2019-02-11 06:45] LABS: ALANINE AMINOTRANSFERASE 10 U/L (12-78); ALBUMIN 2.7 g/dL (3.4-5.0); ANION GAP 5 mmol/L (5-15); CALCIUM 8.2 mg/dL (8.5-10.1); CHLORIDE 113 mmol/L (98-107); CREATININE 0.44 mg/dL (0.7-1.3)
[2019-02-11 06:48] LABS: ALKALINE PHOSPHATASE 137 U/L (45-117); BILIRUBIN,TOTAL 0.5 mg/dL (0.2-1.0); TOTAL PROTEIN 5.6 g/dL (6.4-8.2)
[2019-02-11] MEDS: DRONABINOL 5 MG CAPSULE PO SCH ×2 (08:18→20:58)
[2019-02-11] MEDS: LACTOBACILLUS CHEW TABLET PO SCH ×3 (08:18→20:58)
[2019-02-11] MEDS: MIDODRINE 5 MG TABLET PO SCH ×2 (08:18→20:58)
[2019-02-11] MEDS: APIXABAN 5 MG TABLET PO SCH ×2 (08:18→20:58)
[2019-02-11] MEDS: SENNA/DOCUSATE TABLET PO SCH (08:18)
[2019-02-11 08:38] VITALS: BP 106/65
[2019-02-11 09:17] LABS: MICROSCOPIC NOT IND
[2019-02-11] MEDS: HYDROmorphone 2MG TABLET PO PRN ×2 (11:16→12:24)
[2019-02-11] MEDS: SODIUM CHLORIDE 0.9% IVPB SCH (15:14)
[2019-02-11] MEDS: MESNA IVPB SCH (15:14)
[2019-02-11] MEDS: ONDANSETRON 16 MG, DEXAMETHASONE 10 MG in SODIUM CHLORIDE 0.9% 50 ML IVPB SCH (15:14)
[2019-02-11 15:46] VITALS: BP 103/69
[2019-02-11] MEDS: CISPLATIN IV SCH (16:35)
[2019-02-11] MEDS: ETOPOSIDE IV SCH (19:50)
[2019-02-11 20:27] VITALS: BP_SYST 101; BP_DIAS 64; BP_DIAS 67
[2019-02-11] MEDS: IFOSFAMIDE IV SCH (21:37)
[2019-02-12 02:37] VITALS: BP 101/68
[2019-02-12] MEDS: LORazepam 1MG TABLET PO PRN ×2 (02:38→11:25)
[2019-02-12] MEDS: ALENDRONATE 10 MG TABLET PO SCH (05:57)
[2019-02-12 06:17] LABS: BASOPHILS # (AUTO) 0.05 x10^3/uL (0-0.1); BASOPHILS % (AUTO) 1 % (0-1); EOSINOPHILS % (AUTO) 0 % (1-7); LYMPHOCYTES # (AUTO) 0.64 x10^3/uL (1-3.4); LYMPHOCYTES % (AUTO) 15 % (22-44); MD NO; MEAN CORPUSCULAR HEMOGLOBIN 30.9 pg (27.5-34.5); MEAN CORPUSCULAR HGB CONC 32.9 g/dL (33.2-36.2); MEAN CORPUSCULAR VOLUME 93.8 fL (81-97); MEAN PLATELET VOLUME 7.1 fL (7.4-10.4); MONOCYTES # (AUTO) 0.03 x10^3/uL (0.2-0.8); MONOCYTES % (AUTO) 1 % (2-9); NEUTROPHILS # (AUTO) 3.69 x10^3/uL (1.8-6.8); NEUTROPHILS % (AUTO) 84 % (42-75); PLATELET COUNT 345 x10^3/uL (130-400); RED BLOOD COUNT 3.04 x10^6/uL (4.38-5.82); RED CELL DISTRIBUTION WIDTH 20.3 % (9.4-14.8)
[2019-02-12 06:27] LABS: ALBUMIN 2.8 g/dL (3.4-5.0); ANION GAP 6 mmol/L (5-15); CALCIUM 8.2 mg/dL (8.5-10.1); CHLORIDE 113 mmol/L (98-107)
[2019-02-12 06:31] LABS: ALANINE AMINOTRANSFERASE 14 U/L (12-78); ALKALINE PHOSPHATASE 148 U/L (45-117); BILIRUBIN,TOTAL 0.5 mg/dL (0.2-1.0); CREATININE 0.53 mg/dL (0.7-1.3); TOTAL PROTEIN 5.9 g/dL (6.4-8.2)
[2019-02-12 07:32] LABS: MICROSCOPIC AUTO
[2019-02-12 07:38] VITALS: BP 109/72
[2019-02-12] MEDS: APIXABAN 5 MG TABLET PO SCH (07:59)
[2019-02-12] MEDS: DRONABINOL 5 MG CAPSULE PO SCH (07:59)
[2019-02-12] MEDS: SENNA/DOCUSATE TABLET PO SCH (07:59)
[2019-02-12] MEDS: LACTOBACILLUS CHEW TABLET PO SCH (07:59)
[2019-02-12] MEDS: MIDODRINE 5 MG TABLET PO SCH (07:59)
[2019-02-12] MEDS ORDERED: LORA-446 PO (10:43)
== END 2019-02-12 13:58 | disposition home or self-care (01) | DRG 846 ==
LOC: 3NW 08:14
PROVIDERS: ADMIT Internal Medicine; ATTEND Internal Medicine
DX: Z51.11 Encounter for antineoplastic chemotherapy (principal); E43 Unspecified severe protein-calorie malnutrition; C79.51 Secondary malignant neoplasm of bone; C79.31 Secondary malignant neoplasm of brain; Z68.1 Body mass index [BMI] 19.9 or less, adult; E23.2 Diabetes insipidus; C62.90 Malignant neoplasm of unspecified testis, unspecified whether descended or undescended; D63.8 Anemia in other chronic diseases classified elsewhere; D69.59 Other secondary thrombocytopenia; F41.1 Generalized anxiety disorder; G89.4 Chronic pain syndrome; R74.8 Abnormal levels of other serum enzymes; K59.00 Constipation, unspecified; T45.1X5A Adverse effect of antineoplastic and immunosuppressive drugs, initial encounter; Z79.01 Long term (current) use of anticoagulants; Z85.47 Personal history of malignant neoplasm of testis; Z86.718 Personal history of other venous thrombosis and embolism; Z87.891 Personal history of nicotine dependence
CPT/HCPCS: 36415; 80053; 81001; 81003; 82306; 83735; 84100; 84443; 85025; G0378; J1100; J1453; J2405; J3475; J3480; J9060; J9181; J9209; Q0167; J0780; J7030; J7040; J7050; J9208

== ENCOUNTER → 2019-02-28 | Outpatient (CLI) | payer MEDICAID ==
[~2019-02-28] MED LIST changes: +GADOBUTROL 7.5 MMOL/7.5 ML PFS ONE; +LORA-446 PO; -LORA2ORA SL; +LORA2ORA7 SL
== END | disposition home or self-care (01) ==
LOC: CFH 08:54
PROVIDERS: ATTEND Internal Medicine Hematology & Oncology
DX: C62.12 Malignant neoplasm of descended left testis (principal); E11.9 Type 2 diabetes mellitus without complications; Z91.041 Radiographic dye allergy status
CPT/HCPCS: 70553; A9585

== ENCOUNTER 2019-03-01 13:22 | Outpatient (CLI) | payer MEDICAID ==
[~2019-03-01 13:22] MED LIST changes: -GADOBUTROL 7.5 MMOL/7.5 ML PFS ONE
== END 2019-03-01 23:59 | disposition home or self-care (01) ==
LOC: PETCFH 13:22
PROVIDERS: ATTEND Internal Medicine Hematology & Oncology
DX: C79.51 Secondary malignant neoplasm of bone (principal); C62.12 Malignant neoplasm of descended left testis; K76.89 Other specified diseases of liver
CPT/HCPCS: 78815; A9552

== ENCOUNTER 2019-04-13 09:29 | Outpatient (CLI) | payer MEDICAID ==
[~2019-04-13 09:29] MED LIST changes: -ALEN10TA6 PO; +ALEN10TA7 PO; +MORP-30 PO; -MORP30TA3 PO
== END 2019-04-13 23:59 | disposition home or self-care (01) ==
LOC: CFH 09:29
PROVIDERS: ATTEND Internal Medicine Hematology & Oncology
DX: Z02.9 Encounter for administrative examinations, unspecified (principal)

== ENCOUNTER → 2019-08-15 | Outpatient (CLI) | payer MEDICAID ==
[~2019-08-15] MED LIST changes: +OMNIPAQUE 350 MG/ML, 100ML BOTTLE ONE
== END | disposition home or self-care (01) ==
LOC: CFH 08:52
PROVIDERS: ATTEND Internal Medicine Hematology & Oncology
DX: M84.454D Pathological fracture, pelvis, subsequent encounter for fracture with routine healing (principal); M89.551 Osteolysis, right thigh; C62.12 Malignant neoplasm of descended left testis; I82.409 Acute embolism and thrombosis of unspecified deep veins of unspecified lower extremity; F17.200 Nicotine dependence, unspecified, uncomplicated; Z85.9 Personal history of malignant neoplasm, unspecified; X58.XXXD Exposure to other specified factors, subsequent encounter
CPT/HCPCS: 71260; 74177; Q9967

== ENCOUNTER 2019-11-07 09:37 | Outpatient (CLI) | payer MEDICAID ==
[~2019-11-07 09:37] MED LIST changes: +ALEN10TA10 PO; -ALEN10TA7 PO; -OMNIPAQUE 350 MG/ML, 100ML BOTTLE ONE
== END 2019-11-07 23:59 | disposition home or self-care (01) ==
LOC: PETCFH 09:37
PROVIDERS: ATTEND Internal Medicine Hematology & Oncology
DX: C62.12 Malignant neoplasm of descended left testis (principal); M25.851 Other specified joint disorders, right hip
CPT/HCPCS: 78815; A9552

== ENCOUNTER 2020-03-06 08:42 | Outpatient (CLI) | payer MEDICAID | END 2020-03-06 23:59 | disposition home or self-care (01) | LOC: PETCFH 08:42 | PROVIDERS: ATTEND Internal Medicine Hematology & Oncology | DX: C62.12 Malignant neoplasm of descended left testis (principal); C79.51 Secondary malignant neoplasm of bone | CPT/HCPCS: 78815; A9552 ==

== ENCOUNTER → 2020-07-22 | Outpatient (CLI) | payer MEDICAID ==
[~2020-07-22] MED LIST changes: +OMNIPAQUE 350 MG/ML, 100ML BOTTLE ONE
== END | disposition home or self-care (01) ==
LOC: CFH 09:06
PROVIDERS: ATTEND Internal Medicine Hematology & Oncology
DX: C79.51 Secondary malignant neoplasm of bone (principal); C62.12 Malignant neoplasm of descended left testis; J84.10 Pulmonary fibrosis, unspecified; M48.54XA Collapsed vertebra, not elsewhere classified, thoracic region, initial encounter for fracture
CPT/HCPCS: 71260; 74177; Q9967